=== PATIENT | female | born 1950 | race Caucasian/White ===

== ENCOUNTER 2020-09-26 01:41 | Emergency (ER) | payer OTHER ==
[~2020-09-26] VITALS: Ht 165 cm; Wt 100.0 kg
[~2020-09-26 01:41] MED LIST: HYDR1TAB PO; IMAT400T2 PO
[2020-09-26 01:45] VITALS: BP 135/95
[2020-09-26 02:46] LABS: ALBUMIN 3.9 GM/DL (3.2-4.5); BILIRUBIN,TOTAL 0.5 MG/DL (0.1-1.0); CALCIUM 8.8 MG/DL (8.5-10.1); CREATININE SERUM 1.6 MG/DL (0.60-1.30); POTASSIUM 4.6 MMOL/L (3.6-5.0); TOTAL PROTEIN 7.7 GM/DL (6.4-8.2)
[2020-09-26 03:01] LABS: BASOPHILS # (AUTO) 0.1 10^3/uL (0.0-0.1); BASOPHILS % (AUTO) 1 % (0-10); EOSINOPHILS # (AUTO) 0.2 10^3/uL (0.0-0.3); EOSINOPHILS % (AUTO) 3 % (0-10); HEMATOCRIT 36 % (35-52); HEMOGLOBIN 11.6 g/dL (11.5-16.0); LYMPHOCYTES # (AUTO) 2.3 10^3/uL (1.0-4.0); LYMPHOCYTES % (AUTO) 26 % (12-44); MEAN CORPUSCULAR HEMOGLOBIN 30 pg (25-34); MEAN CORPUSCULAR HGB CONC 33 g/dL (32-36); MEAN CORPUSCULAR VOLUME 93 fL (80-99); MEAN PLATELET VOLUME 9.9 fL (9.0-12.2); MONOCYTES # (AUTO) 0.8 10^3/uL (0.0-1.0); MONOCYTES % (AUTO) 9 % (0-12); NEUTROPHILS # (AUTO) 5.6 10^3/uL (1.8-7.8); NEUTROPHILS % (AUTO) 62 % (42-75); PLATELET COUNT 287 10^3/uL (130-400)
[2020-09-26 04:32] LABS: BILIRUBIN,URINE NEGATIVE (NEGATIVE); CLARITY,URINE SL CLOUDY; COLOR,URINE YELLOW; GLUCOSE, URINE (UA) NEGATIVE (NEGATIVE); KETONES,URINE NEGATIVE (NEGATIVE); LEUKOCYTE ESTERASE ,URINE TRACE (NEGATIVE); NITRITE,URINE NEGATIVE (NEGATIVE); PH,URINE 5.5 (5-9); PROTEIN,URINE NEGATIVE (NEGATIVE)
[2020-09-26 04:33] LABS: PROTHROMBIN TIME PATIENT 13.2 SEC (12.2-14.7)
[2020-09-26 04:40] LABS: BACTERIA,URINE TRACE /HPF
--- NOTE | 2020-09-26 05:38 | ED Neurological Problem ---
General Chief Complaint: Eye Problems Stated Complaint: LEG PAIN Nursing Triage Note: Pt arrival at ER via [facility] with complaint of vision changes, and pain to her left groin. Pt states that in august of this year she had a occipital stroke that left her with eye issues. PT states that she lost some of her periphreal vision due to the stroke. Pt states that just prior to that stroke in august she had that same feeling in her groin. She states that tonight about an hour ago both the pain in the groin, and some changes in the vision occurred so she called for an ambulance in case she was having another stroke. Nursing Sepsis Screen: No Definite Risk Source: patient Exam Limitations: no limitations History of Present Illness Date Seen by Provider: Sep 26, 2020 Time Seen by Provider: 01:50 Initial Comments This is 69-year-old woman presents to the emergency room via EMS with concerns about visual changes and left groin or upper thigh pain that started around midnight. Symptoms have since improved. She suffered an occipital lobe stroke in late August which affected her balance and her left lateral peripheral vision. She was treated at [facility] and underwent physical therapy and Occupational Therapy. She was discharged from the hospital yesterday. She describes her vision change as a spinning of objects in her vision that should be stationary. She denies dizziness associated with this. She is also co ncerned because she has a left groin pain that she associates with a prodrome to her stroke in August. She does not know what causes this pain. The pain has subsided. She reports her symptoms started about an hour after taking Lipitor, and she wonders if there is a correlation. She does not appear to have any new visual field cut deficits or other new focal neurologic deficits. Allergies and Home Medications Allergies Coded Allergies: Penicillins (Verified Allergy, Unknown, 09/26/20) Tetracyclines (Verified Allergy, Unknown, 09/26/20) cefaclor (Verified Allergy, Unknown, 09/26/20) dexamethasone (Verified Allergy, Unknown, 09/26/20) ibuprofen (Verified Allergy, Unknown, 09/26/20) tobramycin (Verified Allergy, Unknown, 09/26/20) Home Medications Hydrocodone Bit/Acetaminophen 1 Each Tablet, 1-2 EACH PO Q4HR PRN Prescribed by: CARMEN ROWELL on 05/28/121904 Imatinib Mesylate 400 Mg Tablet, 400 MG PO DAILY, (Reported) Patient Home Medication List Home Medication List Reviewed: Yes Review of Systems Review of Systems Constitutional: no symptoms reported Eyes: No Symptoms Reported Ears, Nose, Mouth, Throat: see HPI Respiratory: no symptoms reported Cardiovascular: no symptoms reported Gastrointestinal: no symptoms reported Genitourinary: no symptoms reported Musculoskeletal: no symptoms reported Skin: no symptoms reported Psychiatric/Neurological: See HPI Endocrine: No Symptoms Reported Hematologic/Lymphatic: No Symptoms Reported Past V[place]omi-Ywnpsc-Utptia Hx Past Med/Social Hx: Reviewed and Corrections made Patient Social History Recent Infectious Disease Expo: No Recent Hopitalizations: Yes Past Medical History Surgeries: Yes Nephrectomy Respiratory: No Cardiac: No Neurological: Yes Stroke (With residual left lateral visual field cut deficit and balance issues) : No Genitourinary: Yes 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 oz. 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) Crainal Nerves: normal hearing, normal speech, PERRL Coordination/Gait: normal finger to nose (Normal ovus-gr-acsa) Motor/Sensory: no motor deficit, no sensory deficit Skin: normal color, warm/dry Progress/Results/Core Measures Results/Orders Lab Results Laboratory Tests Test 09/26/20 02:18 09/26/20 02:55 09/26/20 03:55 09/26/20 04:27 Range/Units Sodium Level 138 135-145 MMOL/L Potassium Level 4.6 3.6-5.0 MMOL/L Chloride Level 103 98-107 MMOL/L Carbon Dioxide Level 21 21-32 MMOL/L Anion Gap 14 5-14 MMOL/L Blood Urea Nitrogen 24 H 7-18 MG/DL Creatinine 1.60 H 0.60-1.30 MG/DL Estimat Glomerular Filtration Rate 32 BUN/Creatinine Ratio 15 Glucose Level 94 70-105 MG/DL Calcium Level 8.8 8.5-10.1 MG/DL Corrected Calcium 8.9 8.5-10.1 MG/DL Total Bilirubin 0.5 0.1-1.0 MG/DL Aspartate Amino Transf (AST/SGOT) 28 5-34 U/L Alanine Aminotransferase (ALT/SGPT) 20 0-55 U/L Alkaline Phosphatase 147 H 40-136 U/L Total Protein 7.7 6.4-8.2 GM/DL Albumin 3.9 3.2-4.5 GM/DL White Blood Count 9.0 4.3-11.0 10^3/uL Red Blood Count 3.84 3.80-5.11 10^6/uL Hemoglobin 11.6 11.5-16.0 g/dL Hematocrit 36 35-52 % Mean Corpuscular Volume 93 80-99 fL Mean Corpuscular Hemoglobin 30 25-34 pg Mean Corpuscular Hemoglobin Concent 33 32-36 g/dL Red Cell Distribution Width 14.3 10.0-14.5 % Platelet Count 287 130-400 10^3/uL Mean Platelet Volume 9.9 9.0-12.2 fL Immature Granulocyte % (Auto) 0 % Neutrophils (%) (Auto) 62 42-75 % Lymphocytes (%) (Auto) 26 12-44 % Monocytes (%) (Auto) 9 0-12 % Eosinophils (%) (Auto) 3 0-10 % Basophils (%) (Auto) 1 0-10 % Neutrophils # (Auto) 5.6 1.8-7.8 10^3/uL Lymphocytes # (Auto) 2.3 1.0-4.0 10^3/uL Monocytes # (Auto) 0.8 0.0-1.0 10^3/uL Eosinophils # (Auto) 0.2 0.0-0.3 10^3/uL Basophils # (Auto) 0.1 0.0-0.1 10^3/uL Immature Granulocyte # (Auto) 0.0 0.0-0.1 10^3/uL Prothrombin Time 13.2 12.2-14.7 SEC INR Comment 1.0 0.8-1.4 Activated Partial Thromboplast Time 26 24-35 SEC Urine Color YELLOW Urine Clarity SL CLOUDY Urine pH 5.5 5-9 Urine Specific [place] 1.015 L 1.016-1.022 Urine Protein NEGATIVE NEGATIVE Urine Glucose (UA) NEGATIVE NEGATIVE Urine Ketones NEGATIVE NEGATIVE Urine Nitrite NEGATIVE NEGATIVE Urine Bilirubin NEGATIVE NEGATIVE Urine Urobilinogen 0.2 < = 1.0 MG/DL Urine Leukocyte Esterase TRACE H NEGATIVE Urine RBC (Auto) NEGATIVE NEGATIVE Urine RBC NONE /HPF Urine WBC 2-5 /HPF Urine Squamous Epithelial Cells 5-10 /HPF Urine Crystals NONE /LPF Urine Bacteria TRACE /HPF Urine Casts NONE /LPF Urine Mucus NEGATIVE /LPF Urine Culture Indicated NO My Orders Orders - LELA INGRAM MD Cbc With Automated Diff (09/26/20 02:03) Protime With Inr (09/26/20 02:03) Partial Thromboplastin Time (09/26/20 02:03) Comprehensive Metabolic Panel (09/26/20 02:03) Ua Culture If Indicated (09/26/20 02:03) Ekg Tracing (09/26/20 02:03) Accucheck Stat ONCE (09/26/20 02:03) Ed Iv/Invasive Line Start (09/26/20 02:03) Vital Signs Stroke Patient Q15M (09/26/20 02:03) Ct Head Wo-R/O Stroke (09/26/20 02:03) Intake & Output 06,14,22 (09/26/20 02:03) Monitor-Rhythm Ecg Trace Only (09/26/20 02:03) Dysphagia Screening Tool (09/26/20 02:03) Vital Signs/I&O 09/26/20 09/26/20 09/26/20 01:45 01:45 05:50 Temp 35.9 Pulse 81 81 108 Resp 18 18 20 B/P (MAP) 135/95 135/95 (108) 164/90 Pulse Ox 97 97 99 O2 Delivery Room Air Room Air Blood Pressure Mean: 108 Progress Progress Note : Progress Note By exam patient did not appear to have any notable new neurologic deficits. The spinning of objects in her vision has resolved. The groin pain has also resolved. CT of the head was unremarkable. Labs were also unremarkable. Creatinine is at baseline per her report. The visual disturbance she describes does not seem consistent with a stroke syndrome. She questions whether these symptoms and her groin pain could be related to Lipitor use. I suggested stopping Lipitor for a couple of days and following up with her primary care provider to discuss. Initial ECG Impression Date: Sep 26, 2020 Initial ECG Impression Time: 02:35 Initial ECG Rate: 75 Initial ECG Rhythm: Normal Sinus Initial ECG Intervals: Normal Comment Normal sinus rhythm with no ST elevation or depression. No abnormal intervals. LVH. Diagnostic Imaging Diagonstic Imaging: CT Plain Films/CT/US/NM/MRI: head Comments CT head [employer] report reviewed. Stroke findings consistent with her prior stroke history. No acute features appreciated. Departure Impression Primary Impression: Visual disturbance Additional Impression: History of stroke Disposition: HOME, SELF-CARE Condition: Stable Departure-Patient Inst. Decision time for Depature: 05:37 Referrals: NO,LOCAL PHYSICIAN (PCP/Family) Primary Care Physician Patient Instructions: Stroke Add. Discharge Instructions: Follow-up with your primary care provider soon as you are able. Discussed possible referral to neurology. Return to the emergency room if you have worsening symptoms. Call with questions or concerns. If you think Lipitor may be contributing to your symptoms, you may stop Lipitor for couple of days to determine how you feel off of it. Discuss an alternative with your doctor. All discharge instructions reviewed with patient and/or family. Voiced un derstanding. LELA INGRAM MD Sep 26, 2020 05:38
[2020-09-26 05:50] VITALS: BP 164/90
--- NOTE | 2020-09-26 06:41 | Diagnostic Imaging Report ---
PROCEDURE: CT head wo r/o stroke. TECHNIQUE: Multiple contiguous axial images were obtained through the brain without the use of intravenous contrast. Auto Exposure Controls were utilized during the CT exam to meet ALARA standards for radiation dose reduction. INDICATION: Neuro deficit, recent stroke. Leukemia and renal cancer. COMPARISON: None available. FINDINGS: No intracranial hyperdense hemorrhage. There is some loss of the fisher-white matter differentiation in the right posterior temporoparietal and occipital regions. There also appears to be some subcortical hypoattenuation in the right inferior parietal region. Probable old infarct in the left inferior cerebellar hemisphere. No midline shift. Basilar cisterns remain patent. No hyperdense MCA sign on either side. No skull fracture. Paranasal sinuses and mastoid air cells are clear. IMPRESSION: 1. No intracranial hemorrhage or features of acute large territorial infarct. 2. Probable subacute infarcts in the right parieto-occipital region. 3. Old lacunar infarct in the left inferior cerebellar hemisphere. 4. Findings are in agreement with the preliminary report. Dictated by: Dictated on workstation # [id number]
== END 2020-09-26 05:50 | disposition home or self-care (01) ==
LOC: EDUNIT# 01:41 → ER 01:43
DX: H53.9 Unspecified visual disturbance (principal); I10 Essential (primary) hypertension; Z86.73 Personal history of transient ischemic attack (TIA), and cerebral infarction without residual deficits; Z85.528 Personal history of other malignant neoplasm of kidney; Z88.0 Allergy status to penicillin; Z88.1 Allergy status to other antibiotic agents; Z88.6 Allergy status to analgesic agent; Z88.8 Allergy status to other drugs, medicaments and biological substances
CPT/HCPCS: 36415; 70450; 80053; 81000; 85025; 85610; 85730; 93005; 93041

== ENCOUNTER → 2020-10-30 | Outpatient (CLI) | payer OTHER ==
--- NOTE | 2020-10-30 16:25 | Diagnostic Imaging Report ---
PROCEDURE: US carotid duplex, bilateral. TECHNIQUE: Multiple real-time grayscale images were obtained over the carotid arteries in various projections, bilaterally. Additional spectral analysis and color Doppler duplex images were also obtained. INDICATION: Stroke. The bilateral common internal and external carotid arteries revealed normal velocities, normal waveforms and showed no findings of hemodynamically significant degrees of stenosis. The ICA to CCA percent ratios bilaterally are within normal limits. Vertebral flow bilaterally is in the normal antegrade direction. There is very mild degrees of calcified plaques at the bilateral carotid bulbs without significant stenosis. IMPRESSION: Mild calcified plaque did not form hemodynamically significant stenosis. Parameters based on the consensus panel Walls-Scale and Doppler ultrasound criteria published May 2003, Radiology, Volume 229. DOPPLER (peak systolic velocity M/S Right Left CCA 1.04 .96 ICA Proximal .82 .60 ICA Mid 1.0 1.25 ICA Distal 1.1 .68 RATIO 1.0 1.3 ECA 1.2 1.3 VERT .39 .45 Dictated by: Dictated on workstation # [id number]
== END ==
LOC: RAD 11:16
PROVIDERS: ATTEND Family Medicine
DX: I63.9 Cerebral infarction, unspecified (principal); I65.23 Occlusion and stenosis of bilateral carotid arteries
CPT/HCPCS: 93306; 93880

== ENCOUNTER 2020-12-18 10:45 | Outpatient (RCR) | payer OTHER ==
[2020-12-29] MEDS ORDERED: ASPI-999 PO (17:51)
[2020-12-29] MEDS ORDERED: CLOP75TA69 PO (17:51)
[2020-12-30] MEDS ORDERED: CLOP75TA28 PO (14:21)
[2020-12-30] MEDS ORDERED: ASPI-999 PO (14:21)
[2020-12-30] MEDS ORDERED: IMAT100T8 PO (14:21)
[2020-12-30] MEDS ORDERED: ERGO1250 PO (14:22)
== END 2021-01-08 14:49 | disposition home or self-care (01) ==
PROVIDERS: ATTEND Family Medicine
DX: I63.9 Cerebral infarction, unspecified (principal); M25.552 Pain in left hip; M62.81 Muscle weakness (generalized); R26.9 Unspecified abnormalities of gait and mobility

== ENCOUNTER 2020-12-26 14:40 | Outpatient (CLI) | payer OTHER ==
[~2020-12-26] VITALS: Ht 165 cm; Wt 100.0 kg
[2020-12-26] MEDS ORDERED: NS IV 1000 ML 1,000 ML IV SCH (15:00)
[2020-12-26 15:27] VITALS: BP 127/73
[2020-12-30] MEDS ORDERED: ERGO50006 PO (14:22)
== END 2020-12-26 17:00 ==
LOC: SDC 14:40
PROVIDERS: ATTEND Family Medicine
DX: E86.0 Dehydration (principal)
CPT/HCPCS: 96360

== ENCOUNTER 2020-12-29 08:22 | Inpatient (IN) | payer OTHER ==
[~2020-12-29] VITALS: Ht 162.6 cm; Wt 129.5 kg
[2020-12-29] MEDS ORDERED: LACTATED RINGERS 1,000 ML IV ONE ×2 (09:26→17:54)
[2020-12-29 09:33] LABS: BASOPHILS % (AUTO) 0 % (0-10); EOSINOPHILS % (AUTO) 0 % (0-10); MONOCYTES # (AUTO) 0.3 10^3/uL (0.0-1.0); MONOCYTES % (AUTO) 4 % (0-12); WHITE BLOOD COUNT 6.6 10^3/uL (4.3-11.0)
[2020-12-29 09:35] LABS: HEMATOCRIT 34 % (35-52); HEMOGLOBIN 12.6 g/dL (11.5-16.0); LYMPHOCYTES # (AUTO) 0.4 10^3/uL (1.0-4.0); LYMPHOCYTES % (AUTO) 6 % (12-44); MEAN CORPUSCULAR HEMOGLOBIN 30 pg (25-34); MEAN CORPUSCULAR HGB CONC 37 g/dL (32-36); MEAN CORPUSCULAR VOLUME 83 fL (80-99); MEAN PLATELET VOLUME 10.2 fL (9.0-12.2); NEUTROPHILS # (AUTO) 5.9 10^3/uL (1.8-7.8); NEUTROPHILS % (AUTO) 89 % (42-75); PLATELET COUNT 123 10^3/uL (130-400)
[2020-12-29 09:43] LABS: ALBUMIN 3.1 GM/DL (3.2-4.5)
[2020-12-29 09:45] LABS: CALCIUM 7.1 MG/DL (8.5-10.1)
[2020-12-29 09:46] LABS: TOTAL PROTEIN 5.7 GM/DL (6.4-8.2)
[2020-12-29 09:48] LABS: BILIRUBIN,TOTAL 0.5 MG/DL (0.1-1.0)
[2020-12-29 10:03] LABS: INR 1.1 (0.8-1.4); PROTHROMBIN TIME PATIENT 14.2 SEC (12.2-14.7)
--- NOTE | 2020-12-29 10:33 | Diagnostic Imaging Report ---
Clinical indication: Patient with sepsis and central line placement. Exam: Portable chest x-ray upright view. Comparisons: None. Findings: There is mild to moderate patchy infiltrate involving left midlung field, left lung base and right lung base. There is possible left pleural effusion. There is no pneumothorax. Pulmonary vasculature and cardiac silhouette is grossly unremarkable. Right IJ central line seen with tip in the distal superior vena cava. There are degenerative spurs involving the thoracic spine. IMPRESSION: 1: There are bilateral lung infiltrates with lung base affected the most (left side more than the right). 2: Possible small left pleural effusion. 3: There is right IJ central line with tip in the distal superior vena cava region. There is no pneumothorax. Dictated by: Dictated on workstation # [id number]
[2020-12-29 11:31] LABS: BILIRUBIN,URINE NEGATIVE (NEGATIVE); CLARITY,URINE CLEAR; COLOR,URINE YELLOW; GLUCOSE, URINE (UA) NEGATIVE (NEGATIVE); KETONES,URINE NEGATIVE (NEGATIVE); LEUKOCYTE ESTERASE ,URINE NEGATIVE (NEGATIVE); NITRITE,URINE NEGATIVE (NEGATIVE); PROTEIN,URINE 2+ (NEGATIVE)
[2020-12-29] MEDS ORDERED: REMDESIVIR INJ 200 MG in NS (IVPB) 210 ML IV ONE (11:45)
[2020-12-29] MEDS ORDERED: guaiFENesin/CODEINE (ROBITUSSIN AC) 10ML UDC PO PRN (11:45)
[2020-12-29] MEDS ORDERED: ONDANSETRON 4 MG/2 ML (SDV) Z0FRAN IV PRN (11:45)
[2020-12-29] MEDS ORDERED: NS IV 500 ML 500 ML IV SCH (11:45)
[2020-12-29] MEDS ORDERED: ENOXAPARIN 40 MG/0.4 ML (LOVENOX) SYR SC SCH (11:45)
[2020-12-29 11:47] LABS: BACTERIA,URINE NEGATIVE /HPF; GRANULAR CASTS,URINE 0-2 /LPF; RBC,URINE RARE /HPF; WBC,URINE 0-2 /HPF
--- NOTE | 2020-12-29 11:48 | ED General ---
General Chief Complaint: Respiratory Problems Stated Complaint: COVID PNA Nursing Triage Note: Pt to ED via EMS from [facility]. Pt uncertain of COVID exposure. EMS was called for SOB. EMS reports O2 sat of 84% room air. Pt arrived on 10L non-rebreather. Pt has hx of leukemia, general weakness. Pt c/o sore throat, cough and SOB. Nursing Sepsis Screen: No Definite Risk Source of Information: Patient Exam Limitations: No Limitations History of Present Illness Date Seen by Provider: Dec 29, 2020 Time Seen by Provider: 08:35 Initial Comments Here with report of markedly low oxygen level. Patient on 10 L via nonrebreather on arrival by EMS. Patient apparently lives at [facility]. She was concerned that she may have Covid. She has history of leukemia and thus did not get Covid vaccination due to concerns of reactivity with the vaccine and leukemia treatment. She is generally weak with cough, sore throat and shortness of breath. O2 sat upper 90s on 10 L via facemask. EMS unable to establish IV. Timing/Duration: 2-3 Days, Getting Worse Severity: Moderate, Severe Associated Systoms: No Chest Pain; Cough, Fever/Chills, Headaches; No Nausea/Vomiting; Shortness of Air, Weakness Allergies and Home Medications Allergies Coded Allergies: Penicillins (Verified Allergy, Unknown, 09/26/20) Tetracyclines (Verified Allergy, Unknown, 09/26/20) cefaclor (Verified Allergy, Unknown, 09/26/20) dexamethasone (Verified Allergy, Unknown, 09/26/20) ibuprofen (Verified Allergy, Unknown, 09/26/20) tobramycin (Verified Allergy, Unknown, 09/26/20) Home Medications Hydrocodone Bit/Acetaminophen 1 Each Tablet, 1-2 EACH PO Q4HR PRN Prescribed by: CARMEN ROWELL on 05/28/12 190 Imatinib Mesylate 400 Mg Tablet, 400 MG PO DAILY, (Reported) Patient Home Medication List Home Medication List Reviewed: Yes Review of Systems Review of Systems Constitutional: see HPI, chills, fever EENTM: see HPI Respiratory: see HPI Cardiovascular: No chest pain; edema Gastrointestinal: see HPI; No abdominal pain Genitourinary: dysuria; No pain Musculoskeletal: muscle pain, muscle weakness All Other Systems Reviewed Negative Unless Noted: Yes Past Kxsfaoe-Esiwyf-Rugqmc Hx Past Med/Social Hx: Reviewed Nursing Past Med/Soc Hx Patient Social History Alcohol Use: Denies Use 2nd Hand Smoke Exposure: No Recent Infectious Disease Expo: No Recent Hopitalizations: Yes Past Medical History Surgeries: Yes Nephrectomy Respiratory: No Cardiac: No Neurological: Yes Stroke Genitourinary: Yes Renal Failure Gastrointestinal: No Musculoskeletal: No Endocrine: No Cancer: Yes Leukemia, Kidney What Type of Treatment Did You: Chemotherapy Psychosocial: No Integumentary: No Family Medical History Reviewed Nursing Family Hx No Pertinent Family Hx Physical Exam-Suspected Sepsis Physical Exam Vital Signs Vital Signs - First Documented 12/29/20 12/29/20 08:22 09:35 Pulse 82 Resp 35 B/P (MAP) 134/105 (115) Pulse Ox 98 O2 Delivery Non Rebreather O2 Flow Rate 4.00 Capillary Refill : Less Than 3 Seconds Blood Pressure Mean: 115 Height, Weight, BMI Height: '" Weight: lbs. oz. kg; 39.00 BMI Method:Stated General Appearance: Chronically ill, Mild Distress HEENT: PERRL/EOMI, Pharyngeal Erythema Neck: Non Tender, Supple Respiratory: Crackles (Bilateral bases), Decreased Breath Sounds Cardiovascular: Regular Rate, Rhythm, No Murmur Gastrointestinal: Non Tender, Soft Back: Normal Inspection, No CVA Tenderness, No Vertebral Tenderness Extremity: Normal Range of Motion, Non Tender, Pedal Edema Neurologic/Psychiatric: Alert, Motor Weakness (Global), Other (Hard of hearing but oriented to self and place) Skin: warm/dry, pallor; No rash, No ulcerations Focused Exam Lactate Level 12/29/20 09:27: Lactic Acid Level 0.90 Lactic Acid Level Laboratory Tests Test 12/29/20 09:27 Lactic Acid Level 0.90 MMOL/L (0.50-2.00) Procedures/Interventions Lumen: triple Central Line Procedure: betadine prep, sterile drapes applied, sterile dressing applied Position: internal jugular (R) Anesthesia: Lidocaine Volume Anesthetic (ccs): 5 Complications: none Post Position: sutured, good blood return, position confirmed w/ CXR Placed under emergent condition and unable to get IV access. Discussed risk and benefits with the patient who consented. Placed via ultrasound guidance using Seldinger technique x1 stick without complications. The internal jugular vein was significantly collapsing with each breath. Stayed open better and Trendelenburg. Sutured in place and covered with central line dressing. Tolerated procedure well with no complications. Post chest x-ray shows line in good position without pneumothorax. Progress/Results/Core Measures Suspected Sepsis Recent Fever Within 48 Hours: No Infection Criteria Present: None New/Unexplained Altered Menta: No Sepsis Screen: No Definite Risk SIRS Temperature: Pulse: 82 Respiratory Rate: 35 Laboratory Tests 12/29/20 09:27: White Blood Count 6.6 Blood Pressure 134 /105 Mean: 115 12/29/20 09:27: Lactic Acid Level 0.90 Laboratory Tests 12/29/20 09:27: Creatinine 3.00H, Platelet Count 123L, Total Bilirubin 0.5 12/29/20 09:44: INR Comment 1.1 Results/Orders Lab Results Laboratory Tests Test 12/29/20 08:30 12/29/20 08:35 12/29/20 09:23 12/29/20 09:27 Range/Units SARS-CoV-2 RNA (RT-PCR) Detected H Not Detecte Influenza Type A (RT-PCR) Not Detected Not Detecte Influenza Type B (RT-PCR) Not Detected Not Detecte C-Reactive Protein High Sensitivity 3.05 H 0.00-0.50 MG/DL Procalcitonin 0.70 H <0.10 NG/ML White Blood Count 6.6 4.3-11.0 10^3/uL Red Blood Count 4.15 3.80-5.11 10^6/uL Hemoglobin 12.6 11.5-16.0 g/dL Hematocrit 34 L 35-52 % Mean Corpuscular Volume 83 80-99 fL Mean Corpuscular Hemoglobin 30 25-34 pg Mean Corpuscular Hemoglobin Concent 37 H 32-36 g/dL Red Cell Distribution Width 13.9 10.0-14.5 % Platelet Count 123 L 130-400 10^3/uL Mean Platelet Volume 10.2 9.0-12.2 fL Immature Granulocyte % (Auto) 1 % Neutrophils (%) (Auto) 89 H 42-75 % Lymphocytes (%) (Auto) 6 L 12-44 % Monocytes (%) (Auto) 4 0-12 % Eosinophils (%) (Auto) 0 0-10 % Basophils (%) (Auto) 0 0-10 % Neutrophils # (Auto) 5.9 1.8-7.8 10^3/uL Lymphocytes # (Auto) 0.4 L 1.0-4.0 10^3/uL Monocytes # (Auto) 0.3 0.0-1.0 10^3/uL Eosinophils # (Auto) 0.0 0.0-0.3 10^3/uL Basophils # (Auto) 0.0 0.0-0.1 10^3/uL Immature Granulocyte # (Auto) 0.1 0.0-0.1 10^3/uL Percent Immature Platelet Fraction 8.8 H 0.0-7.6 % Sodium Level 118 *L 135-145 MMOL/L Potassium Level 3.0 L 3.6-5.0 MMOL/L Chloride Level 87 L 98-107 MMOL/L Carbon Dioxide Level 17 L 21-32 MMOL/L Anion Gap 14 5-14 MMOL/L Blood Urea Nitrogen 42 H 7-18 MG/DL Creatinine 3.00 H 0.60-1.30 MG/DL Estimat Glomerular Filtration Rate 16 BUN/Creatinine Ratio 14 Glucose Level 119 H 70-105 MG/DL Lactic Acid Level 0.90 0.50-2.00 MMOL/L Calcium Level 7.1 L 8.5-10.1 MG/DL Corrected Calcium 7.8 L 8.5-10.1 MG/DL Total Bilirubin 0.5 0.1-1.0 MG/DL Aspartate Amino Transf (AST/SGOT) 360 H 5-34 U/L Alanine Aminotransferase (ALT/SGPT) 118 H 0-55 U/L Alkaline Phosphatase 79 40-136 U/L Total Protein 5.7 L 6.4-8.2 GM/DL Albumin 3.1 L 3.2-4.5 GM/DL Test 12/29/20 09:44 12/29/20 11:15 Range/Units Prothrombin Time 14.2 12.2-14.7 SEC INR Comment 1.1 0.8-1.4 Activated Partial Thromboplast Time 29 24-35 SEC My Orders Orders - TED HULL MD Influenza A And B By Pcr (12/29/20 08:46) Cbc With Automated Diff (12/29/20 08:49) Comprehensive Metabolic Panel (12/29/20 08:49) Blood Culture (12/29/20 08:49) Sputum Culture (12/29/20 08:49) Urinalysis (12/29/20 08:49) Urine Culture (12/29/20 08:49) Protime With Inr (12/29/20 08:49) Partial Thromboplastin Time (12/29/20 08:49) Chest 1 View, Ap/Pa Only (12/29/20 08:49) Ed Iv/Invasive Line Start (12/29/20 08:49) Ed Iv/Invasive Line Start (12/29/20 08:49) Vital Signs Adult Sepsis Patie Q15M (12/29/20 08:49) O2 (12/29/20 08:49) Remove Rings In Anticipation O (12/29/20 08:49) Lactic Acid Analyzer (12/29/20 08:49) Lactated Ringers (Lr 1000 Ml Iv Solution (12/29/20 09:26) Manual Differential (12/29/20 09:27) Hs C Reactive Protein (12/29/20 09:53) Procalcitonin (Pct) (12/29/20 09:53) Covid 19 Inhouse Test (12/29/20 08:30) Dexamethasone Injection (Decadron Inje (12/29/20 11:30) Medications Given in ED Current Medications Medications Dose Ordered Sig/Ricardo Route Start Time Stop Time Status Last Admin Dose Admin Lactated Ringer's 1,000 ml @ ud STK-MED ONCE IV 12/29/20 09:26 12/29/20 09:30 DC 12/29/20 09:34 999 MLS/HR Vital Signs/I&O 12/29/20 12/29/20 08:22 09:35 Pulse 82 Resp 35 B/P (MAP) 134/105 (115) Pulse Ox 98 95 O2 Delivery Non Rebreather Nasal Cannula O2 Flow Rate 4.00 Capillary Refill : Less Than 3 Seconds Blood Pressure Mean: 115 Progress Note : Progress Note Seen and evaluated on arrival by EMS. Placed on high flow O2. Sepsis protocol initiated as well as Covid screening including influenza. LR 1 L bolus ordered. We are unable to obtain IV access peripherally including with use of ultrasound so ultimately placed central line after discussion with the patient. She consented. Monitor patient. 1134: Patient is Covid positive. Shaw catheter placed by nursing and they did note that she has significant yeast vaginitis. I did discuss this with inpatient team, Dr. Stratton. Patient is remaining stable on high flow O2 with O2 sats in the upper 90s. We will try to titrate. Does have bilateral infiltrates consistent with Covid pneumonia. Decadron 6 mg IV ordered. Patient will go to the ICU and admitting physician will write orders. Patient claims allergy to Decadron which seems to be from tobramycin. We will attempt trial. 1156: Patient to ICU and has not had Decadron yet and they will talk with inpatient physician because patient is claiming allergy. She is now on nasal cannula. Diagnostic Imaging Diagonstic Imaging: Xray Plain Films/CT/US/NM/MRI: chest Comments [facility] [place] NAME: LOUIE LEONG [employer] REC#: [id number] PT STATUS: REG ER : 1950 PHYSICIAN: TED HULL MD ADMIT DATE: 12/29/20/ER Draft Date of Exam:12/29/20 CHEST 1 VIEW, AP/PA ONLY Clinical indication: Patient with sepsis and central line placement. Exam: Portable chest x-ray upright view. Comparisons: None. Findings: There is mild to moderate patchy infiltrate involving left midlung field, left lung base and right lung base. There is possible left pleural effusion. There is no pneumothorax. Pulmonary vasculature and cardiac silhouette is grossly unremarkable. Right IJ central line seen with tip in the distal superior vena cava. There are degenerative spurs involving the thoracic spine. IMPRESSION: 1: There are bilateral lung infiltrates with lung base affected the most (left side more than the right). 2: Possible small left pleural effusion. 3: There is right IJ central line with tip in the distal superior vena cava region. There is no pneumothorax. Dictated on workstation # [id number] Dict: 12/29/20 1019 Trans: 12/29/20 1033 CVB [id number] Interpreted by: YOVANNY HERCULES MD Electronically signed by: Reviewed: Reviewed by Me Departure Impression Primary Impression: Pneumonia due to COVID-19 virus Additional Impression: Hypoxia Disposition: ADMITTED INPATIENT Condition: Critical Admissions Decision to Admit Reason: Admit from ER (General) Decision to Admit/Date: Dec 29, 2020 Time/Decision to Admit Time: 11:34 Departure-Patient Inst. Referrals: SAMAN RAI MD (PCP/Family) Primary Care Physician TED HULL MD Dec 29, 2020 11:48
[2020-12-29] MEDS: guaiFENesin SYRUP 100 MG/5 ML 10 ML (ROBITUSSIN SF) PO SCH ×3 (12:12→21:36)
--- NOTE | 2020-12-29 12:34 | Tele-ICU Progress Note ---
Subjective Date Seen by a Provider: Dec 29, 2020 Time Seen by a Provider: 12:29 Subjective/Events-last exam ++ 69 y/o f with hx of leukemia ho did not reive Covid vaccine presents with hypoxemia and now COVID positive. Started on decadron. Plan ia to give remdisivir and convalsecent plasma D dimer pending PLAN: HFNC for now DVT prophylaxis Review of Systems General: Fatigue, Malaise Pulmonary: Dyspnea Neurological: Weakness Sepsis Event Evaluation Height, Weight, BMI Height: '" Weight: lbs. oz. kg; 41.18 BMI Method:Stated Focused Exam Lactate Level 12/29/20 09:27: Lactic Acid Level 0.90 Lactic Acid Level Laboratory Tests Test 12/29/20 09:27 Lactic Acid Level 0.90 MMOL/L (0.50-2.00) Exam Exam Patient acknowledged, consented, and participated in this virtual visit which was conducted using real time audio/video Vital Signs Date Time Temp Pulse Resp B/P (MAP) Pulse Ox O2 Delivery O2 Flow Rate FiO2 12/29/20 09:35 95 Nasal Cannula 4.00 12/29/20 08:22 82 35 134/105 (115) 98 Non Rebreather Height & Weight Height: '" Weight: lbs. oz. kg; 41.18 BMI Method:Stated General Appearance: Chronically ill, Mild Distress HEENT: PERRL/EOMI, Pharyngeal Erythema Neck: Non Tender, Supple Respiratory: Crackles (Bilateral bases), Decreased Breath Sounds Cardiovascular: Regular Rate, Rhythm, No Murmur Capillary Refill: Less Than 3 Seconds Extremity: Normal Range of Motion, Non Tender, Pedal Edema Neurologic/Psychiatric: Alert, Motor Weakness (Global), Other (Hard of hearing but oriented to self and place) Results Lab Laboratory Tests 12/29/20 09:27 Assessment/Plan Assessment/Plan COVID PNA with hypoxemia and underlying leukemia Decadron, remdisivir, convalscent plasma ANANYA MAURO MD Dec 29, 2020 12:34
--- NOTE | 2020-12-29 14:22 | History & Physical-Hospitalist ---
History of Present Illness HPI/Chief Complaint Pt is a 69yoCF with a PMH of kidney cancer, leukemia, CKD, who presented via EMS due to hypoxia. She has not been feeling well for a few days, roughly 8days, and was concerned she had COVID. She was satting 84% when EMS arrived and placed her on a non rebreather. Sats improved by her arrival here and she was placed on 10lpm face mask. They were unable to get IV access so ER had to place a central line. She was found to have acute renal failure as well with a creatinine of 3. She was admitted for further care. She reports she has been having some diarrhea as well but can not quantify how much or how often or when it last was. She has not been vaccinated for COVID. Source: patient Date Seen 12/29/20 Time Seen by a Provider: 13:44 Attending Physician Brinda Stratton MD PCP Lis Swartz MD Referring Physician Date of Admission Dec 29, 2020 at 11:31 Home Medications & Allergies Home Medications Reviewed patient Home Medication Reconciliation performed by pharmacy medication reconciliations central supply technician and/or nursing. Patients Allergies have been reviewed. Allergies Allergies Coded Allergies Penicillins (Verified Allergy, Unknown, 09/26/20) Tetracyclines (Verified Allergy, Unknown, 09/26/20) cefaclor (Verified Allergy, Unknown, 09/26/20) dexamethasone (Verified Allergy, Unknown, 09/26/20) ibuprofen (Verified Allergy, Unknown, 09/26/20) tobramycin (Verified Allergy, Unknown, 09/26/20) Past Amriynk-Eseujj-Molqvs Hx Current Status status: No Advance Directives: No Communicates: Verbally Primary Language: Palauan Preferred Spoken Language: Palauan Is interpretation needed?: No Implanted or Applied Medical D: None Past Medical History Surgeries: Nephrectomy Stroke Renal Failure Leukemia, Kidney What Type of Treatment Did You: Chemotherapy Family Medical History Reviewed Nursing Family Hx No Pertinent Family Hx Review of Systems Constitutional: No chills, No fever; malaise EENTM: no symptoms reported Respiratory: cough, short of breath Cardiovascular: No chest pain Gastrointestinal: diarrhea, loss of appetite; No nausea, No vomiting Genitourinary: no symptoms reported Musculoskeletal: no symptoms reported Skin: no symptoms reported Psychiatric/Neurological: No Symptoms Reported Physical Exam Physical Exam Vital Signs Vital Signs - First Documented 12/29/20 12/29/20 08:22 09:35 Pulse 82 Resp 35 B/P (MAP) 134/105 (115) Pulse Ox 98 O2 Delivery Non Rebreather O2 Flow Rate 4.00 Capillary Refill : Less Than 3 Seconds Height, Weight, BMI Height: '" Weight: lbs. oz. kg; 41.18 BMI Method:Stated General Appearance: No Apparent Distress, Chronically ill, Obese HEENT: PERRL/EOMI; No Scleral Icterus (L), No Scleral Icterus (R); Other (dry mucous membranes) Neck: Normal Inspection, Supple Respiratory: No Accessory Muscle Use, Decreased Breath Sounds Cardiovascular: Regular Rate, Rhythm, No Murmur Gastrointestinal: Normal Bowel Sounds, Non Tender, Soft Extremity: No Calf Tenderness, No Pedal Edema Neurologic/Psychiatric: Alert, Oriented x3 (slowed speech), Normal Mood/Affect Skin: Normal Color, Warm/Dry Results Results/Procedures Labs Laboratory Tests 12/29/20 09:27 Patient resulted labs reviewed. Imaging: Reviewed Imaging Report Imaging [facility] [place] NAME: LOUIE LEONG [facility] REC#: [id number] PT STATUS: REG ER : 1950 PHYSICIAN: TED UHLL MD ADMIT DATE: 12/29/20/ER Draft Date of Exam:12/29/20 CHEST 1 VIEW, AP/PA ONLY Clinical indication: Patient with sepsis and central line placement. Exam: Portable chest x-ray upright view. Comparisons: None. Findings: There is mild to moderate patchy infiltrate involving left midlung field, left lung base and right lung base. There is possible left pleural effusion. There is no pneumothorax. Pulmonary vasculature and cardiac silhouette is grossly unremarkable. Right IJ central line seen with tip in the distal superior vena cava. There are degenerative spurs involving the thoracic spine. IMPRESSION: 1: There are bilateral lung infiltrates with lung base affected the most (left side more than the right). 2: Possible small left pleural effusion. 3: There is right IJ central line with tip in the distal superior vena cava region. There is no pneumothorax. Dictated on workstation # [id number] Dict: 12/29/20 1019 Trans: 12/29/20 1033 CVB [id number] Interpreted by: YOVANNY HERCULES MD Electronically signed by: Assessment/Plan Admission Diagnosis Acute hypoxic respiratory failure due to COVID19 Admission Status: Inpatient Order (span 2 midnights) Reason for Inpatient Admission: see below Assessment and Plan Acute hypoxic respiratory failure due to COVID19 On day 8 of symptoms cannot do remdesivir due to renal function- discussed with Dr Swartz who will see tomorrow and follow up Does agree to convalescent plasma, ordered Does now consent to Decadron trial given the benefit of improved mortality Wean oxygen at able on 5lpm currently, down from NRB on arrival D dimer pending Hyponatremia na 118 today, was 138 3 months ago Appears hypovolemic on exam Discussed with her PCP and appears to be at her baseline Continue IVF Check BMP now Acute on chronic kidney disease Creatinine at baseline is aroudnd1.6 Currently 3.00 Continue IVF and trend 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
[2020-12-29 15:47] VITALS: BP 117/56
[2020-12-29 16:31] LABS: BAND NEUTROPHILS 7 %; BURR CELLS MODERATE; LYMPHOCYTES % (MANUAL) 3 %; MONOCYTES % (MANUAL) 5 %; NEUTROPHILS % (MANUAL) 85 %; PLATELET ESTIMATE DECREASED
[2020-12-29 16:56] LABS: POTASSIUM 3.3 MMOL/L (3.6-5.0)
[2020-12-29 16:57] LABS: CALCIUM 6.9 MG/DL (8.5-10.1)
[2020-12-29 17:01] LABS: CREATININE SERUM 2.93 MG/DL (0.60-1.30)
[2020-12-29] MEDS ORDERED: POTASSIUM CL 10MEQ/50ML IVPB 100 ML IV ONE (17:32)
[2020-12-29] MEDS ORDERED: ASPI-999 PO (17:51)
[2020-12-29] MEDS ORDERED: CLOP75TA69 PO (17:51)
[2020-12-29] MEDS: LACTATED RINGERS 1,000 ML IV SCH (18:07)
[2020-12-29] MEDS: POTASSIUM CL 10MEQ/50ML IVPB 50 ML IV SCH (18:07)
[2020-12-29] MEDS: RT-ALBUTEROL INHALER HFA (VENTOLIN HFA) 18 GM IH SCH ×2 (18:21→22:24)
[2020-12-30] MEDS: guaiFENesin SYRUP 100 MG/5 ML 10 ML (ROBITUSSIN SF) PO SCH ×6 (01:29→20:14)
[2020-12-30] MEDS: RT-ALBUTEROL INHALER HFA (VENTOLIN HFA) 18 GM IH SCH ×6 (02:46→22:20)
[2020-12-30] MEDS: LACTATED RINGERS 1,000 ML IV SCH ×3 (03:35→21:36)
[2020-12-30 04:06] LABS: BASOPHILS % (AUTO) 0 % (0-10); EOSINOPHILS % (AUTO) 0 % (0-10); HEMATOCRIT 32 % (35-52); HEMOGLOBIN 11.6 g/dL (11.5-16.0); LYMPHOCYTES # (AUTO) 0.6 10^3/uL (1.0-4.0); LYMPHOCYTES % (AUTO) 8 % (12-44); MEAN CORPUSCULAR HEMOGLOBIN 30 pg (25-34); MEAN CORPUSCULAR HGB CONC 36 g/dL (32-36); MEAN CORPUSCULAR VOLUME 84 fL (80-99); MEAN PLATELET VOLUME 10.4 fL (9.0-12.2); MONOCYTES # (AUTO) 0.3 10^3/uL (0.0-1.0); MONOCYTES % (AUTO) 4 % (0-12); NEUTROPHILS # (AUTO) 6.1 10^3/uL (1.8-7.8); NEUTROPHILS % (AUTO) 87 % (42-75)
[2020-12-30 04:08] LABS: PLATELET COUNT 139 10^3/uL (130-400)
[2020-12-30 04:20] LABS: ALBUMIN 2.7 GM/DL (3.2-4.5); POTASSIUM 3.6 MMOL/L (3.6-5.0)
[2020-12-30 04:22] LABS: CALCIUM 7.1 MG/DL (8.5-10.1)
[2020-12-30 04:23] LABS: TOTAL PROTEIN 5.1 GM/DL (6.4-8.2)
[2020-12-30 04:25] LABS: BILIRUBIN,TOTAL 0.4 MG/DL (0.1-1.0)
[2020-12-30 04:26] LABS: CREATININE SERUM 2.93 MG/DL (0.60-1.30); PHOSPHORUS 3.7 MG/DL (2.3-4.7)
[2020-12-30 04:29] LABS: ABG BASE EXCESS -4.8 MMOL/L (-2.5-2.5); ABG OXYGEN SATURATION 75 % (94-100); ABG PCO2 36 MMHG (35-45); ABG PH 7.36 (7.37-7.43); ABG PO2 48 MMHG (79-93); ABG TCO2 20.8 MMOL/L (21.0-31.0); VENTILATOR NO
[2020-12-30 04:30] LABS: PATIENT TEMP 36.8
[2020-12-30 04:31] LABS: MAGNESIUM 1.9 MG/DL (1.6-2.4)
[2020-12-30] MEDS: POTASSIUM CL 10MEQ/50ML IVPB 50 ML IV SCH (05:44)
[2020-12-30] MEDS: MAGNESIUM 1 GM/100 ML IVPB 100 ML IV SCH (05:44)
[2020-12-30] MEDS: KCL 20 MEQ TAB (K-DUR) PO SCH (05:44)
--- NOTE | 2020-12-30 08:22 | Diagnostic Imaging Report ---
Indication: COVID 19 positive and shortness of air. Time of exam: 3:51 AM Correlation is made with prior chest from one day earlier. Right IJ line has tip overlying SVC. Heart size is stable. There are patchy infiltrates left mid and lower lung field. There may be minimal infiltrate right base as well. Upper lung [place] are clear. There is no effusion or pneumothorax. Impression: Continued patchy bilateral pulmonary infiltrates consistent with pneumonia. Dictated by: Dictated on workstation # [id number]
--- NOTE | 2020-12-30 08:41 | Progress Note ---
Subjective Subjective Date Seen by Provider: Dec 30, 2020 Time Seen by Provider: 08:40 LOUIE IS A 70 Y/O FEMALE WHO IS A NEW PATIENT TO MY PRACTICE OF A FEW MONTHS AGO. SHE HAD BEEN HOSPITALIZED WITH A STROKE RECENTLY AND CHOSE TO ESTABLISH IN MY PRACTICE. SHE HAS HX OF CML, RENAL CARCINOMA STATUS POST NEPHRECTOMY SHE REPORTS THAT SHE IS "NOT BREATHING BAD" THIS MORNING AND FEELING BETTER. Review of Systems General: Fatigue, Malaise Pulmonary: Dyspnea Neurological: Weakness All Other Systems Reviewed All Other Systems Reviewed: Yes Objective Exam Vital Signs Vital Signs - First Documented 12/29/20 12/29/20 12/29/20 08:22 09:35 12:30 Temp 36.8 Pulse 82 Resp 35 B/P (MAP) 134/105 (115) Pulse Ox 98 O2 Delivery Non Rebreather O2 Flow Rate 4.00 Capillary Refill : Less Than 3 Seconds General Appearance: No Apparent Distress, Chronically ill, Obese HEENT: PERRL/EOMI; No Scleral Icterus (L), No Scleral Icterus (R); Other (dry mucous membranes) Neck: Normal Inspection, Supple Respiratory: No Accessory Muscle Use, Decreased Breath Sounds Cardiovascular: Regular Rate, Rhythm, No Murmur Gastrointestinal: Normal Bowel Sounds, Non Tender, Soft Back: Normal Inspection, No CVA Tenderness, No Vertebral Tenderness Extremity: No Calf Tenderness, No Pedal Edema Neurologic/Psychiatric: Alert, Oriented x3 (slowed speech), Normal Mood/Affect Skin: Normal Color, Warm/Dry Results Lab Laboratory Tests 12/29/20 09:23: C-Reactive Protein High Sensitivity 3.05H, Procalcitonin 0.70H 12/29/20 09:27: White Blood Count 6.6, Red Blood Count 4.15, Hemoglobin 12.6, Hematocrit 34L, Mean Corpuscular Volume 83, Mean Corpuscular Hemoglobin 30, Mean Corpuscular Hemoglobin Concent 37H, Red Cell Distribution Width 13.9, Platelet Count 123L, Mean Platelet Volume 10.2, Immature Granulocyte % (Auto) 1, Neutrophils (%) (Auto) 89H, Lymphocytes (%) (Auto) 6L, Monocytes (%) (Auto) 4, Eosinophils (%) (Auto) 0, Basophils (%) (Auto) 0, Neutrophils # (Auto) 5.9, Lymphocytes # (Auto) 0.4L, Monocytes # (Auto) 0.3, Eosinophils # (Auto) 0.0, Basophils # (Auto) 0.0, Immature Granulocyte # (Auto) 0.1, Neutrophils % (Manual) 85, Lymphocytes % (Man ual) 3, Monocytes % (Manual) 5, Band Neutrophils 7, Platelet Estimate DECREASED, Percent Immature Platelet Fraction 8.8H, Kamar Cells MODERATE, Sodium Level 118*L , Potassium Level 3.0L, Chloride Level 87L, Carbon Dioxide Level 17L, Anion Gap 14, Blood Urea Nitrogen 42H, Creatinine 3.00H, Estimat Glomerular Filtration Rate 16, BUN/Creatinine Ratio 14, Glucose Level 119H, Lactic Acid Level 0.90, Calcium Level 7.1L, Corrected Calcium 7.8L, Total Bilirubin 0.5, Aspartate Amino Transf (AST/SGOT) 360H, Alanine Aminotransferase (ALT/SGPT) 118H, Alkaline Phosphatase 79, Total Protein 5.7L, Albumin 3.1L 12/29/20 09:44: Prothrombin Time 14.2, INR Comment 1.1, Activated Partial Thromboplast Time 29 12/29/20 11:15: Urine Color YELLOW, Urine Clarity CLEAR, Urine pH 6.0, Urine Specific Pryor 1.020, Urine Protein 2+H, Urine Glucose (UA) NEGATIVE, Urine Ketones NEGATIVE, Urine Nitrite NEGATIVE, Urine Bilirubin NEGATIVE, Urine Urobilinogen 0.2, Urine Leukocyte Esterase NEGATIVE, Urine RBC (Auto) 3+H, Urine RBC RARE, Urine WBC 0- 2, Urine Crystals NONE, Urine Bacteria NEGATIVE, Urine Casts PRESENT, Urine Granular Casts 0-2H, Urine Mucus NEGATIVE, Urine Culture Indicated NO 12/29/20 14:20: D-Dimer 3.85H 12/29/20 16:40: Sodium Level 120*L, Potassium Level 3.3L, Chloride Level 89L, Carbon Dioxide Level 20L, Anion Gap 11, Blood Urea Nitrogen 42H, Creatinine 2.93H, Estimat Glomerular Filtration Rate 16, BUN/Creatinine Ratio 14, Glucose Level 114H, Calcium Level 6.9L 12/30/20 03:45: Blood Gas Puncture Site UNK, Blood Gas Patient Temperature 36.8, Arterial Blood pH 7.36L, Arterial Blood Partial Pressure CO2 36, Arterial Blood Partial Pressure O2 48L, Arterial Blood HCO3 20L, Arterial Blood Total CO2 20.8L, Arterial Blood Oxygen Saturation 75L, Arterial Blood Base Excess -4.8L, Nathan Test UNK, Blood Gas Ventilator Setting NO, Blood Gas Inspired Oxygen UNK 12/30/20 03:50: Sodium Level 122*L, Potassium Level 3.6, Chloride Level 91L, Carbon Dioxide Level 18L, Anion Gap 13, Blood Urea Nitrogen 42H, Creatinine 2.93H, Estimat Glomerular Filtration Rate 16, BUN/Creatinine Ratio 14, Glucose Level 121H, Calcium Level 7.1L, White Blood Count 7.0, Red Blood Count 3.85, Hemoglobin 11.6, Hematocrit 32L, Mean Corpuscular Volume 84, Mean Corpuscular Hemoglobin 30, Mean Corpuscular Hemoglobin Concent 36, Red Cell Distribution Width 14.4, Platelet Count 139, Mean Platelet Volume 10.4, Immature Granulocyte % (Auto) 1, Neutrophils (%) (Auto) 87H, Lymphocytes (%) (Auto) 8L, Monocytes (%) (Auto) 4, Eosinophils (%) (Auto) 0, Basophils (%) (Auto) 0, Neutrophils # (Auto) 6.1, Lymphocytes # (Auto) 0.6L, Monocytes # (Auto) 0.3, Eosinophils # (Auto) 0.0, Basophils # (Auto) 0.0, Immature Granulocyte # (Auto) 0.1, Percent Immature Platelet Fraction 7.7H, Corrected Calcium 8.1L, Phosphorus Level 3.7, Magnesium Level 1.9, Total Bilirubin 0.4, Aspartate Amino Transf (AST/SGOT) 253H, Alanine Aminotransferase (ALT/SGPT) 100H, Alkaline Phosphatase 73, Total Protein 5.1L, Albumin 2.7L Assessment/Plan Assessment/Plan Admission Dx ACUTE HYPOXIC RESPIRATORY FAILURE COVID 19 PULMONARY INFECTION HX OF RENAL CELL CARCINOMA WITH NEPHRECTOMY HYPONATREMIA ACUTE ON CHRONIC RENAL FAILURE (STAGE 4) CHRONIC MYELOGENOUS LEUKEMIA ACUTELY ELEVATED LIVER ENZYMES DUE TO SHOCK MORBID OBESITY Assessment and Plan ACUTE HYPOXIC RESPIRATORY FAILURE COVID 19 PULMONARY INFECTION HX OF RENAL CELL CARCINOMA WITH NEPHRECTOMY HYPONATREMIA ACUTE ON CHRONIC RENAL FAILURE (STAGE 4) CHRONIC MYELOGENOUS LEUKEMIA ACUTELY ELEVATED LIVER ENZYMES DUE TO SHOCK MORBID OBESITY ACUTE HYPOXIC RESPIRATORY FAILURE DUE TO COVID 19 PULMONARY INFECTION WITH PNEUMONIA - PT ON DECADRON, RECEIVED CONVALESCENT PLASMA - CANNOT BE ON REMDESIVIR DUE TO HER LIVER FUNCTION AND RENAL FUNCTION. - E-ICU ON CONSULT FOR THIS PATIENT WITH PULMONARY CRITICAL CARE PHYSICIANS ROUNDING ON THE PATIENT VIRTUALLY. HX OF RENAL CELL CARCINOMA WITH NEPHRECTOMY AND ACUTE ON CHRONIC RENAL FAILURE (STAGE 4) - SUPPORTIVE CARE ONLY AT THIS TIME, RENAL ADJUSTMENT OF MEDICATIONS, IV FLUIDS. HYPONATREMIA - REPLENISHED WITH IV FLUIDS. - MONITOR LABS, REPLACE NEEDED. CHRONIC MYELOGENOUS LEUKEMIA - HOLDING GLEEVAC AT THIS TIME. ACUTELY ELEVATED LIVER ENZYMES DUE TO SHOCK AND COVID INFECTION - FLUIDS, SUPPORTIVE CARE, MONITOR LABS CLOSELY. - CANNOT GIVE REMDESIVIR DUE TO LIVER FAILURE MORBID OBESITY - WILL NEED TO BE ASSISTED WITH MOVEMENTS/PRONING, ETC. DVT PROPHYLAXIS WITH LOVENOX PT IS VERY HIGH RISK, I HAVE DISCUSSED HER CODE STATUS WITH HER AND ADVISED HER THAT I THINK THIS WILL TURN INTO A SITUATION WHERE SHE ENDS UP INTUBATED. SHE VOCALIZED UNDERSTANDING AND WISHED TO BE FULL CODE STATUS. I REITERATED TO LOUIE THAT SHE IS AT EXTREMELY HIGH RISK OF DYING WHILE IN THE HOSPITAL AND THAT WE WILL DO EVERYTHING WE CAN MEDICALLY TO HELP HER IMPROVE BUT WITH HER CML, RENAL FAILURE, AND OTHER COMORBID CONDITIONS SHE IS IN THE VERY HIGH RISK CATEGORY FOR POOR OUTCOME. Hyponatremia na 118 today, was 138 3 months ago Appears hypovolemic on exam Discussed with her PCP and appears to be at her baseline Continue IVF Check BMP now Acute on chronic kidney disease Creatinine at baseline is aroudnd1.6 Currently 3.00 Continue IVF and trend CML Is on Gleevac, brought it with her Follows with oncology, not sure where Obesity Clinically significant, no acute needs DVT ppx: Lovenox NAME: LOUIE LEONG MED REC#: [id number] PT STATUS: ADM IN : 1950 PHYSICIAN: BRINDA PADILLA MD ADMIT DATE: 12/29/20/ICU Draft Date of Exam:12/30/20 CHEST 1 VIEW, AP/PA ONLY Indication: COVID 19 positive and shortness of air. Time of exam: 3:51 AM Correlation is made with prior chest from one day earlier. Right IJ line has tip overlying SVC. Heart size is stable. There are patchy infiltrates left mid and lower lung field. There may be minimal infiltrate right base as well. Upper lung [place] are clear. There is no effusion or pneumothorax. Impression: Continued patchy bilateral pulmonary infiltrates consistent with pneumonia. Dictated on workstation # [id number] Dict: 12/30/2015 Trans: 12/30/20 0822 [facility] [id number] Interpreted by: DAMIR MARTINEZ MD Electronically signed by: Problems: (1) Acute respiratory failure (2) COVID-19 SAMAN RAI MD Dec 30, 2020 08:41
--- NOTE | 2020-12-30 09:08 | Pulmonary Progress Note ---
Subjective Date Seen by a Provider: Dec 30, 2020 Time Seen by a Provider: 09:28 Subjective/Events-last exam admitte with COVID PNA on remdesivir and decadraon, d dimer 3, on once a day Lovenox CXR shows bilateral infiltrates on vapotherm 40 lpm FiO2 100%, spont RR in teens Cr is 3 may have to stop remdesivir-RN will hold chart says allergic to PCN Has central line, not sure for need, probably for poor venous access Has Shaw catheter, RN feels needed due to drop in SpO2 when gets out of bed Sepsis Event Evaluation Height, Weight, BMI Height: '" Weight: lbs. oz. kg; 41.18 BMI Method:Stated Focused Exam Lactate Level 12/29/20 09:27: Lactic Acid Level 0.90 Exam Exam Patient acknowledged, consented, and participated in this virtual visit which was conducted using real time audio/video Vital Signs Date Time Temp Pulse Resp B/P (MAP) Pulse Ox O2 Delivery O2 Flow Rate FiO2 12/30/20 08:37 91 Vapotherm 40.00 100 12/30/20 08:00 90 12 126/87 (100) 87 High Flow N/C 10.00 12/30/20 07:35 36.8 12/30/20 07:00 77 14 109/95 (100) 91 High Flow N/C 8.00 12/30/20 06:58 92 Nasal Cannula 7.00 12/30/20 06:30 75 12/30/20 06:00 71 21 141/71 (94) 90 High Flow N/C 8.00 12/30/20 05:00 75 19 142/72 (93) 91 High Flow N/C 8.00 12/30/20 04:00 Nasal Cannula 8.00 12/30/20 04:00 75 29 103/59 (85) 91 High Flow N/C 8.00 12/30/20 04:00 36.8 12/30/20 03:00 70 28 112/58 (75) 92 High Flow N/C 8.00 12/30/20 02:46 94 Nasal Cannula 7.00 12/30/20 02:00 66 22 116/56 (75) 95 High Flow N/C 8.00 12/30/20 01:00 65 24 108/58 (75) 95 High Flow N/C 8.00 12/30/20 01:00 65 12/30/20 00:00 36.8 12/30/20 00:00 Nasal Cannula 8.00 12/30/20 00:00 35 25 122/63 (72) 96 High Flow N/C 8.00 12/29/20 23:00 84 22 132/74 (95) 92 High Flow N/C 8.00 12/29/20 22:00 74 31 127/68 (91) 95 High Flow N/C 8.00 12/29/20 21:00 84 28 133/63 (92) 90 High Flow N/C 8.00 12/29/20 20:00 78 26 129/63 (89) 94 High Flow N/C 8.00 12/29/20 20:00 Nasal Cannula 8.00 12/29/20 19:00 85 12/29/20 19:00 85 27 137/64 (91) 92 High Flow N/C 8.00 12/29/20 18:34 88 High Flow N/C 8.00 12/29/20 18:21 91 Nasal Cannula 8.00 12/29/20 18:00 80 17 135/66 (89) 91 Nasal Cannula 5.00 12/29/20 17:00 76 25 129/73 (91) 96 Nasal Cannula 5.00 12/29/20 16:28 37.0 12/29/20 16:00 72 28 131/62 (85) 95 Nasal Cannula 5.00 12/29/20 16:00 37.0 12/29/20 16:00 Nasal Cannula 5.00 12/29/20 15:47 73 95 12/29/20 15:00 73 26 117/56 (76) 95 Nasal Cannula 5.00 12/29/20 14:00 83 22 149/67 (94) 91 Nasal Cannula 5.00 12/29/20 13:00 82 29 102/65 (77) 94 Nasal Cannula 5.00 12/29/20 12:36 82 12/29/20 12:30 36.8 12/29/20 12:30 Nasal Cannula 5.00 12/29/20 12:15 80 21 132/70 (90) 92 Nasal Cannula 5.00 12/29/20 09:35 95 Nasal Cannula 4.00 I & O 12/30/20 07:00 Intake Total 2870 ml Output Total 1525 ml Balance 1345 ml Height & Weight Height: '" Weight: lbs. oz. kg; 41.18 BMI Method:Stated General Appearance: No Apparent Distress, Chronically ill, Obese HEENT: PERRL/EOMI; No Scleral Icterus (L), No Scleral Icterus (R); Other (dry mucous membranes) Neck: Normal Inspection, Supple Respiratory: No Accessory Muscle Use, Decreased Breath Sounds, Rhonci Cardiovascular: Regular Rate, Rhythm, No Murmur Capillary Refill: Less Than 3 Seconds Gastrointestinal: normal bowel sounds, non tender Extremity: No Calf Tenderness, No Pedal Edema, Pedal Edema Neurologic/Psychiatric: Alert, Oriented x3 (slowed speech), Normal Mood/Affect Skin: Normal Color, Warm/Dry Results Lab Laboratory Tests 12/29/20 09:27 12/29/20 16:40 12/30/20 03:50 Assessment/Plan Assessment/Plan COVID PNA, continue decadron, would stop remdesivir also with Cr 3 would change to Heparin monitor oxygenation, keep central line and Shaw for now ANANYA ALMAZAN MD Dec 30, 2020 09:08
[2020-12-30] MEDS ORDERED: REMDESIVIR INJ 100 MG in NS (IVPB) 230 ML IV SCH (11:45)
[2020-12-30] MEDS: MICONAZOLE 2% POWDER (DESENEX AF) 90 GM TOP SCH ×2 (12:35→20:36)
[2020-12-30] MEDS ORDERED: CLOP75TA28 PO (14:21)
[2020-12-30] MEDS ORDERED: IMAT100T8 PO (14:21)
[2020-12-30] MEDS ORDERED: ASPI-999 PO (14:21)
[2020-12-30] MEDS ORDERED: ERGO1250 PO (14:22)
[2020-12-31] MEDS: guaiFENesin SYRUP 100 MG/5 ML 10 ML (ROBITUSSIN SF) PO SCH ×7 (01:24→23:39)
[2020-12-31] MEDS: RT-ALBUTEROL INHALER HFA (VENTOLIN HFA) 18 GM IH SCH ×6 (02:45→22:05)
[2020-12-31 03:54] LABS: BASOPHILS % (AUTO) 0 % (0-10); EOSINOPHILS % (AUTO) 0 % (0-10); HEMATOCRIT 33 % (35-52); HEMOGLOBIN 11.9 g/dL (11.5-16.0); LYMPHOCYTES # (AUTO) 0.7 10^3/uL (1.0-4.0); LYMPHOCYTES % (AUTO) 6 % (12-44); MEAN CORPUSCULAR HEMOGLOBIN 30 pg (25-34); MEAN CORPUSCULAR HGB CONC 36 g/dL (32-36); MEAN CORPUSCULAR VOLUME 84 fL (80-99); MONOCYTES # (AUTO) 0.4 10^3/uL (0.0-1.0); MONOCYTES % (AUTO) 3 % (0-12); NEUTROPHILS # (AUTO) 10.3 10^3/uL (1.8-7.8); NEUTROPHILS % (AUTO) 90 % (42-75); PLATELET COUNT 180 10^3/uL (130-400); WHITE BLOOD COUNT 11.5 10^3/uL (4.3-11.0)
[2020-12-31 04:33] LABS: ABG BASE EXCESS -2.6 MMOL/L (-2.5-2.5); ABG OXYGEN SATURATION 92 % (94-100); ABG PCO2 30 MMHG (35-45); ABG PH 7.45 (7.37-7.43); ABG PO2 55 MMHG (79-93); ABG TCO2 21.4 MMOL/L (21.0-31.0)
[2020-12-31 04:48] LABS: ALLENS TEST YES-POS; INSPIRED O2 40; PATIENT TEMP 38.3; VENTILATOR NO
[2020-12-31 05:07] LABS: CALCIUM 7.4 MG/DL (8.5-10.1); CREATININE SERUM 2.59 MG/DL (0.60-1.30); MAGNESIUM 1.8 MG/DL (1.6-2.4); PHOSPHORUS 1.9 MG/DL (2.3-4.7); POTASSIUM 3.8 MMOL/L (3.6-5.0)
[2020-12-31] MEDS: POTASSIUM CL 10MEQ/50ML IVPB 50 ML IV SCH (05:16)
[2020-12-31] MEDS: KCL 20 MEQ TAB (K-DUR) PO SCH (05:16)
[2020-12-31] MEDS: MAGNESIUM 1 GM/100 ML IVPB 100 ML IV SCH (05:16)
[2020-12-31] MEDS: RT-ALBUTEROL INHALER HFA (VENTOLIN HFA) 18 GM IH PRN ×6 (07:10→22:10)
--- NOTE | 2020-12-31 07:33 | Diagnostic Imaging Report ---
INDICATION: COVID positive, shortness of air, ICU care management. TECHNIQUE: Single view chest 3:15 AM. CORRELATION STUDY: 12/30/2020 FINDINGS: Right IJ central line tip over low SVC. Heart size and mediastinum are generally stable. Vasculature however is increased with what appears to be some pulmonary vascular congestion and edema. Scattered bilateral pulmonary opacities are present, overall appear increased as well left greater than right. Probable bilateral pleural effusions. IMPRESSION: 1. Increasing bilateral pulmonary opacities. While may reflect worsening COVID pneumonia, given the overall appearance, does raise concern for underlying vascular congestion and edema as well. Dictated by: Dictated on workstation # [id number]
[2020-12-31] MEDS: MICONAZOLE 2% POWDER (DESENEX AF) 90 GM TOP SCH ×2 (07:59→22:10)
[2020-12-31] MEDS: LACTATED RINGERS 1,000 ML IV SCH ×2 (08:00→22:10)
--- NOTE | 2020-12-31 09:32 | Pulmonary Progress Note ---
Subjective Date Seen by a Provider: Dec 31, 2020 Time Seen by a Provider: 09:31 Sepsis Event Evaluation Height, Weight, BMI Height: '" Weight: lbs. oz. kg; 41.18 BMI Method:Stated Focused Exam Lactate Level 12/29/20 09:27: Lactic Acid Level 0.90 Exam Exam Patient acknowledged, consented, and participated in this virtual visit which was conducted using real time audio/video Vital Signs Date Time Temp Pulse Resp B/P (MAP) Pulse Ox O2 Delivery O2 Flow Rate FiO2 12/31/20 08:00 37.9 12/31/20 08:00 88 24 126/63 (84) 85 Vapotherm 40.00 100.00 12/31/20 08:00 Vapotherm 40.00 100 12/31/20 07:13 92 Vapotherm 40.00 100 12/31/20 07:00 96 37 139/70 (93) 84 Vapotherm 40.00 100.00 12/31/20 06:38 95 12/31/20 06:00 90 36 144/69 (99) 90 Vapotherm 40.00 100.00 12/31/20 05:00 88 37 145/68 (94) 87 Vapotherm 40.00 100.00 12/31/20 04:00 86 32 133/49 (79) 89 Vapotherm 40.00 100.00 12/31/20 04:00 Vapotherm 40.00 100 12/31/20 03:00 90 38 143/73 (96) 88 Vapotherm 40.00 100.00 12/31/20 02:45 90 Vapotherm 40.00 100 12/31/20 02:00 78 26 138/70 (92) 93 Vapotherm 40.00 100.00 12/31/20 01:26 Vapotherm 40.00 100.00 12/31/20 01:00 76 39 127/69 (88) 92 Vapotherm 40.00 90.00 12/31/20 01:00 76 12/31/20 00:00 75 125/65 (85) 92 Vapotherm 40.00 90.00 12/30/20 23:38 Vapotherm 40.00 90 12/30/20 23:00 76 36 123/67 (85) 93 Vapotherm 40.00 90.00 12/30/20 22:21 91 Vapotherm 40.00 90 12/30/20 22:00 76 124/71 (88) 92 Vapotherm 40.00 90.00 12/30/20 21:00 83 115/65 (76) 92 Vapotherm 40.00 90.00 12/30/20 20:00 88 113/51 (65) 92 Vapotherm 40.00 90.00 12/30/20 20:00 Vapotherm 40.00 90 12/30/20 20:00 37.0 12/30/20 19:05 91 Vapotherm 40.00 90 12/30/20 19:00 85 12/30/20 19:00 86 122/62 (98) 90 Vapotherm 40.00 90.00 12/30/20 18:00 82 21 110/54 (72) 94 Vapotherm 40.00 90.00 12/30/20 17:00 73 26 91/65 (74) 95 Vapotherm 40.00 90.00 12/30/20 16:35 Vapotherm 40.00 90 12/30/20 16:24 Vapotherm 40.00 90.00 12/30/20 16:00 81 11 102/60 (74) 93 Vapotherm 40.00 80.00 12/30/20 15:48 36.8 12/30/20 15:00 77 32 126/65 (85) 93 Vapotherm 40.00 80.00 12/30/20 14:15 89 Vapotherm 40.00 80 12/30/20 14:00 78 28 127/59 (81) 93 Vapotherm 40.00 80.00 12/30/20 13:00 85 21 104/54 (71) 91 Vapotherm 40.00 80.00 12/30/20 12:39 Vapotherm 40.00 80.00 12/30/20 12:36 88 12/30/20 12:34 35.6 Vapotherm 40.00 70.00 12/30/20 12:18 Vapotherm 40.00 80 12/30/20 12:00 78 22 130/39 (69) 91 Vapotherm 40.00 100.00 12/30/20 11:00 85 11 94/88 (90) 91 Vapotherm 40.00 100.00 12/30/20 10:19 96 Vapotherm 40.00 100 12/30/20 10:00 89 12 128/80 (96) 94 Vapotherm 40.00 100.00 I & O 12/31/20 07:00 Intake Total 1770 ml Output Total 2725 ml Balance -955 ml Height & Weight Height: '" Weight: lbs. oz. kg; 41.18 BMI Method:Stated General Appearance: No Apparent Distress, Chronically ill, Obese HEENT: PERRL/EOMI; No Scleral Icterus (L), No Scleral Icterus (R); Other (dry mucous membranes) Neck: Normal Inspection, Supple Respiratory: No Accessory Muscle Use, Decreased Breath Sounds, Rhonci Cardiovascular: Regular Rate, Rhythm, No Murmur Capillary Refill: Less Than 3 Seconds Gastrointestinal: normal bowel sounds, non tender Extremity: No Calf Tenderness, No Pedal Edema, Pedal Edema Neurologic/Psychiatric: Alert, Oriented x3 (slowed speech), Normal Mood/Affect Skin: Normal Color, Warm/Dry Results Lab Laboratory Tests 12/29/20 16:40 12/30/20 03:50 12/31/20 03:30 Assessment/Plan Assessment/Plan (Tele-ICU Physician , Progress Note ) Available chart/ vitals / labs / Images reviewed Video assessment done using teleICU camera, rest of exam as per RN Discussed with RN Events overnight : refused to prone Afebrile hemodynamically stable, no pressors, I/O = pos 1L Drips: LFT's are elevated, need to be monitored As per RN exam : [email or web address] Ro Consultants: Hospital course: 12/29- admitte dwith COVID PNA on remdesivir and decadraon, d dimer 3, on once a day Lovenox 12/31 vapotherm 40 lpm FiO2 100% - RR 20 - 40 CXR 12/31 - worsening A/P Avute resp failure , CCovid PNA vapotherm 40 lpm FiO2 100% - as per RN - PCP discussed possible intubation - pateent deferred dsicions to family COVID PNA - remdesiivir - 12/30 - remdesivir offwith ? Cr - decadron 6 iv - Heparin sQ - D dimer 3.85 on 12/29 ( can not do CT with ?Cr ) - leslie morris , -order ECHO and US LE - need to know EF and RVSP to balnace IVF / diuresis / AC Leukocytosis - 12/29 - coag neg staph 1/2, urine MRSA swab neg Hyponatremia - admitted 118 12/29 =>12/31 to 127 - cont to monitor ELZA - admit Cr 3, slow improving to 2.5 - consider diuresis - await BNP and ECHO Transaminases - off remdesivir , probably due to COVID - follow Lines : R IJ 12/29 , (Central Line Necessity Reviewed) Shaw: RN feels needed due to drop in SpO2 when gets out of bed OG: Nutrition: po Analgesia: na Anxiety/ delirium na VTE Prophylaxis: hwp 5K q8 Stress Ulcer Prophylaxis: pepcid ( on steroids Glycemic Control: + Plans in collaboration with bedside consultants and IM MDs. Discussed with RN to reach out if any questions or concerns A total of 37 minutes of critical care time was devoted to this patient today, required to treat and/or prevent further deterioration of critical care condition ( as above ) . ALENA CRAVEN MD Dec 31, 2020 09:31
[2020-12-31] MEDS: FAMOTIDINE 20MG/2ML IV (PEPCID) IVP SCH (09:44)
--- NOTE | 2020-12-31 10:35 | Progress Note ---
Subjective Subjective Date Seen by Provider: Dec 31, 2020 Time Seen by Provider: 08:30 LOUIE IS A 70 Y/O FEMALE WHO IS A NEW PATIENT TO MY PRACTICE OF A FEW MONTHS AGO. SHE HAD BEEN HOSPITALIZED WITH A STROKE RECENTLY AND CHOSE TO ESTABLISH IN MY PRACTICE. SHE HAS HX OF CML, RENAL CARCINOMA STATUS POST NEPHRECTOMY SHE REPORTS THAT SHE IS "NOT BREATHING BAD" THIS MORNING AND FEELING BETTER. Review of Systems General: Fatigue, Malaise Pulmonary: Dyspnea Neurological: Weakness All Other Systems Reviewed All Other Systems Reviewed: Yes Objective Exam Vital Signs Vital Signs - First Documented 12/29/20 12/29/20 12/29/20 12/30/20 08:22 09:35 12:30 08:37 Temp 36.8 Pulse 82 Resp 35 B/P (MAP) 134/105 (115) Pulse Ox 98 O2 Delivery Non Rebreather O2 Flow Rate 4.00 FiO2 100 Capillary Refill : Less Than 3 Seconds General Appearance: No Apparent Distress, Chronically ill, Obese HEENT: PERRL/EOMI; No Scleral Icterus (L), No Scleral Icterus (R); Other (dry mucous membranes) Neck: Normal Inspection, Supple Respiratory: No Accessory Muscle Use, Crackles (BASES), Decreased Breath Sounds Cardiovascular: Regular Rate, Rhythm, No Murmur Gastrointestinal: Normal Bowel Sounds, Non Tender, Soft Back: Normal Inspection, No CVA Tenderness, No Vertebral Tenderness Extremity: No Calf Tenderness, No Pedal Edema Neurologic/Psychiatric: Alert, Oriented x3 (slowed speech), Normal Mood/Affect Skin: Normal Color, Warm/Dry Results Lab Laboratory Tests 12/31/20 03:30: White Blood Count 11.5H, Red Blood Count 3.91, Hemoglobin 11.9, Hematocrit 33L, Mean Corpuscular Volume 84, Mean Corpuscular Hemoglobin 30, Mean Corpuscular Hemoglobin Concent 36, Red Cell Distribution Width 14.6H, Platelet Count 180, Mean Platelet Volume 10.0, Immature Granulocyte % (Auto) 1, Neutrophils (%) (Auto) 90H, Lymphocytes (%) (Auto) 6L, Monocytes (%) (Auto) 3, Eosinophils (%) (Auto) 0, Basophils (%) (Auto) 0, Neutrophils # (Auto) 10.3H, Lymphocytes # (Auto) 0.7L, Monocytes # (Auto) 0.4, Eosinophils # (Auto) 0.0, Basophils # (Auto) 0.0, Immature Granulocyte # (Auto) 0.1, Sodium Level 127L, Potassium Level 3.8, Chloride Level 97L, Carbon Dioxide Level 20L, Anion Gap 10, Blood Urea Nitrogen 41H, Creatinine 2.59H, Estimat Glomerular Filtration Rate 18, BUN/Creatinine Ratio 16, Glucose Level 110H, Calcium Level 7.4L, Phosphorus Level 1.9L, Magnesium Level 1.8, B-Type Natriuretic Peptide 138.2H 12/31/20 04:25: Blood Gas Puncture Site LT RAD, Blood Gas Patient Temperature 38.3, Arterial Blood pH 7.45H, Arterial Blood Partial Pressure CO2 30L, Arterial Blood Partial Pressure O2 55L, Arterial Blood HCO3 21L, Arterial Blood Total CO2 21.4, Ar terial Blood Oxygen Saturation 92L, Arterial Blood Base Excess -2.6L, Nathan Test YES-POS, Blood Gas Ventilator Setting NO, Blood Gas Inspired Oxygen 40 12/31/20 09:45: D-Dimer 2.85H Microbiology 12/29/20 MRSA Screen - Final, Complete MRSA not isolated 12/29/20 Urine Culture - Final, Complete NO GROWTH 12/29/20 Blood Culture - Preliminary, Resulted No growth Assessment/Plan Assessment/Plan Admission Dx ACUTE HYPOXIC RESPIRATORY FAILURE COVID 19 PULMONARY INFECTION HX OF RENAL CELL CARCINOMA WITH NEPHRECTOMY HYPONATREMIA ACUTE ON CHRONIC RENAL FAILURE (STAGE 4) CHRONIC MYELOGENOUS LEUKEMIA ACUTELY ELEVATED LIVER ENZYMES DUE TO SHOCK MORBID OBESITY Assessment and Plan ACUTE HYPOXIC RESPIRATORY FAILURE COVID 19 PULMONARY INFECTION HX OF RENAL CELL CARCINOMA WITH NEPHRECTOMY HYPONATREMIA ACUTE ON CHRONIC RENAL FAILURE (STAGE 4) CHRONIC MYELOGENOUS LEUKEMIA ACUTELY ELEVATED LIVER ENZYMES DUE TO SHOCK MORBID OBESITY ACUTE HYPOXIC RESPIRATORY FAILURE DUE TO COVID 19 PULMONARY INFECTION WITH PNEUMONIA - PT ON DECADRON, RECEIVED CONVALESCENT PLASMA - CANNOT BE ON REMDESIVIR DUE TO HER LIVER FUNCTION AND RENAL FUNCTION. - E-ICU ON CONSULT FOR THIS PATIENT WITH PULMONARY CRITICAL CARE PHYSICIANS ROUNDING ON THE PATIENT VIRTUALLY. HX OF RENAL CELL CARCINOMA WITH NEPHRECTOMY AND ACUTE ON CHRONIC RENAL FAILURE (STAGE 4) - SUPPORTIVE CARE ONLY AT THIS TIME, RENAL ADJUSTMENT OF MEDICATIONS, IV FLUIDS. HYPONATREMIA - REPLENISHED WITH IV FLUIDS. - MONITOR LABS, REPLACE NEEDED. CHRONIC MYELOGENOUS LEUKEMIA - HOLDING GLEEVAC AT THIS TIME. ACUTELY ELEVATED LIVER ENZYMES DUE TO SHOCK AND COVID INFECTION - FLUIDS, SUPPORTIVE CARE, MONITOR LABS CLOSELY. - CANNOT GIVE REMDESIVIR DUE TO LIVER FAILURE MORBID OBESITY - WILL NEED TO BE ASSISTED WITH MOVEMENTS/PRONING, ETC. DVT PROPHYLAXIS WITH LOVENOX PT IS VERY HIGH RISK, I HAVE DISCUSSED HER CODE STATUS WITH HER AND ADVISED HER THAT I THINK THIS WILL TURN INTO A SITUATION WHERE SHE ENDS UP INTUBATED. SHE VOCALIZED UNDERSTANDING AND WISHED TO BE FULL CODE STATUS. I REITERATED TO LOUIE THAT SHE IS AT EXTREMELY HIGH RISK OF DYING WHILE IN THE HOSPITAL AND THAT WE WILL DO EVERYTHING WE CAN MEDICALLY TO HELP HER IMPROVE BUT WITH HER CML, RENAL FAILURE, AND OTHER COMORBID CONDITIONS SHE IS IN THE VERY HIGH RISK CATEGORY FOR POOR OUTCOME. Problems: (1) Acute respiratory failure (2) COVID-19 Admission Dx ACUTE HYPOXIC RESPIRATORY FAILURE COVID 19 PULMONARY INFECTION HX OF RENAL CELL CARCINOMA WITH NEPHRECTOMY HYPONATREMIA ACUTE ON CHRONIC RENAL FAILURE (STAGE 4) CHRONIC MYELOGENOUS LEUKEMIA ACUTELY ELEVATED LIVER ENZYMES DUE TO SHOCK MORBID OBESITY Clinical Quality Measures Admission Status Admission Dx ACUTE HYPOXIC RESPIRATORY FAILURE COVID 19 PULMONARY INFECTION HX OF RENAL CELL CARCINOMA WITH NEPHRECTOMY HYPONATREMIA ACUTE ON CHRONIC RENAL FAILURE (STAGE 4) CHRONIC MYELOGENOUS LEUKEMIA ACUTELY ELEVATED LIVER ENZYMES DUE TO SHOCK MORBID OBESITY SAMAN RAI MD Dec 31, 2020 10:35
[2020-12-31] MEDS: ACETAMINOPHEN 325 MG TABLET PO PRN (11:06)
[2020-12-31 11:27] VITALS: BP 126/54
[2020-12-31] MEDS: DexMEDEtomidine 250 ML DRIP 250 ML IV SCH ×2 (11:31→23:44)
[2020-12-31 11:37] VITALS: BP 148/76
--- NOTE | 2020-12-31 12:56 | Diagnostic Imaging Report ---
PROCEDURE: US Venous Lower Ext Fredi. TECHNIQUE: Multiple real-time grayscale images were obtained over the lower extremities in various projections, bilaterally. Additional duplex Doppler and color Doppler images were also obtained. INDICATION: Respiratory distress and bilateral leg pain. There is no evidence of right or left lower extremity DVT. Both lower extremity deep venous systems demonstrate normal compressibility with normal response to augmentation and Valsalva. No fluid collection or mass is detected. IMPRESSION: No evidence of right or left lower extremity DVT. Dictated by: Dictated on workstation # [id number]
[2020-12-31] MEDS ORDERED: PROPOFOL DRIP (ICU) 100 ML IV ONE (13:52)
[2020-12-31] MEDS ORDERED: NS IV 1000 ML 1,000 ML ONE (14:05)
[2020-12-31] MEDS: PROPOFOL DRIP (ICU) 100 ML IV SCH ×2 (14:20→19:48)
--- NOTE | 2020-12-31 14:34 | Anesthesia-Procedure Note ---
Procedures/Interventions Procedure Start/Stop/Diagnosis Date of Procedure: Dec 31, 2020 Start Time: 14:00 Stop Time: 14:30 Intubation RSI: Yes 100% pre-Ox, [id number]: Yes Intubation Method: orotracheal Videoscope used: Yes Grade View: 1 Medications: Propofol (200), Succinylcholine (80) Mask Ventilation: positive Positive End Tide CO2: Yes Breath Sounds after Intubation: bilateral-equal ETT Securred @ (cm): 24 Intubated with ease: Yes Intubation Complications: no complications Arterial Line Arterial Line Catheter: 20G Type: Radial Location: Right Procedure: prepped, draped in sterile fashion, good wave-form was obtained, patient tolerated procedure well, no immediate complications, post procedure area cleaned, post procedure dressing applied RACHAEL RUTHERFORD CRNA Dec 31, 2020 14:33
--- NOTE | 2020-12-31 14:39 | Physical Therapy Progress Note ---
Therapy Progress Note Patient intubated and sedated. PT will continue to monitor patient status and initiate treatment when patient is medically stable and able to actively participate with skilled therapy. STUART GREEN PT Dec 31, 2020 14:39
--- NOTE | 2020-12-31 15:00 | Diagnostic Imaging Report ---
INDICATION: Intubated patient. COMPARISON: Earlier same day FINDINGS: Single frontal radiographic view of the chest was obtained and demonstrates interval placement of endotracheal tube. Tip terminates below the clavicular heads above saqib. Gastric tube is also seen. Tip terminates near the GE junction. Right internal jugular central venous catheter is also present with tip projecting over the lower SVC. Lungs continue to show diffuse scattered patchy and confluent infiltrate. Overall, aeration stable when compared to earlier same day. No large effusion or pneumothorax is seen. Cardiac silhouette is moderately partially obscured, but appears stable as well. Osseous structures show no acute adverse interval change. IMPRESSION: 1. Stable bilateral diffuse infiltrate. 2. Lines and tubes as above. Dictated by: Dictated on workstation # [id number]
[2020-12-31 15:10] VITALS: BP 138/88
[2020-12-31] MEDS ORDERED: SUCCINYLCHOLINE INJ 100 MG/5 ML SYR/VIAL INJ ONE (15:39)
[2020-12-31 15:40] LABS: ABG BASE EXCESS -2.8 MMOL/L (-2.5-2.5); ABG OXYGEN SATURATION 91 % (94-100); ABG PCO2 34 MMHG (35-45); ABG PH 7.41 (7.37-7.43); ABG PO2 58 MMHG (79-93); ABG TCO2 22.1 MMOL/L (21.0-31.0)
[2020-12-31 15:41] LABS: ALLENS TEST ART LINE; INSPIRED O2 80%; PATIENT TEMP 37; VENTILATOR NO
[2020-12-31 18:42] VITALS: BP 138/88
[2020-12-31 22:10] VITALS: BP 139/55
[2021-01-01 00:15] LABS: ABG BASE EXCESS -3.4 MMOL/L (-2.5-2.5); ABG OXYGEN SATURATION 92 % (94-100); ABG PCO2 35 MMHG (35-45); ABG PH 7.39 (7.37-7.43); ABG PO2 59 MMHG (79-93); ABG TCO2 22.1 MMOL/L (21.0-31.0)
[2021-01-01 00:19] LABS: ALLENS TEST ART LINE; VENTILATOR NO
[2021-01-01 00:51] VITALS: BP 138/88
[2021-01-01 02:22] VITALS: BP 138/88
[2021-01-01] MEDS: RT-ALBUTEROL INHALER HFA (VENTOLIN HFA) 18 GM IH SCH ×6 (02:22→22:32)
[2021-01-01] MEDS: LACTATED RINGERS 1,000 ML IV SCH ×3 (03:12→23:33)
[2021-01-01] MEDS: guaiFENesin SYRUP 100 MG/5 ML 10 ML (ROBITUSSIN SF) PO SCH ×6 (03:13→23:49)
[2021-01-01 03:20] LABS: ABG BASE EXCESS -2.9 MMOL/L (-2.5-2.5); ABG OXYGEN SATURATION 93 % (94-100); ABG PCO2 35 MMHG (35-45); ABG PO2 59 MMHG (79-93); ABG TCO2 22.4 MMOL/L (21.0-31.0); BASOPHILS % (AUTO) 0 % (0-10); EOSINOPHILS % (AUTO) 0 % (0-10); HEMATOCRIT 33 % (35-52); HEMOGLOBIN 11.7 g/dL (11.5-16.0); LYMPHOCYTES # (AUTO) 0.7 10^3/uL (1.0-4.0); LYMPHOCYTES % (AUTO) 6 % (12-44); MEAN CORPUSCULAR HEMOGLOBIN 30 pg (25-34); MEAN CORPUSCULAR HGB CONC 36 g/dL (32-36); MEAN CORPUSCULAR VOLUME 85 fL (80-99); MEAN PLATELET VOLUME 10.2 fL (9.0-12.2); MONOCYTES # (AUTO) 0.2 10^3/uL (0.0-1.0); MONOCYTES % (AUTO) 2 % (0-12); NEUTROPHILS # (AUTO) 9.7 10^3/uL (1.8-7.8); NEUTROPHILS % (AUTO) 89 % (42-75); PLATELET COUNT 202 10^3/uL (130-400); WHITE BLOOD COUNT 10.9 10^3/uL (4.3-11.0)
[2021-01-01 03:25] LABS: ALLENS TEST ART LINE; PATIENT TEMP 36.1; VENTILATOR YES
[2021-01-01 03:44] LABS: ALBUMIN 2.5 GM/DL (3.2-4.5); BILIRUBIN,TOTAL 0.5 MG/DL (0.1-1.0); CALCIUM 7.6 MG/DL (8.5-10.1); CREATININE SERUM 2.71 MG/DL (0.60-1.30); MAGNESIUM 2.3 MG/DL (1.6-2.4); PHOSPHORUS 3.1 MG/DL (2.3-4.7); POTASSIUM 3.8 MMOL/L (3.6-5.0); TOTAL PROTEIN 5.3 GM/DL (6.4-8.2)
--- NOTE | 2021-01-01 05:52 | Diagnostic Imaging Report ---
EXAMINATION: Portable erect AP chest at 4:37 AM INDICATION: Respiratory distress, Covid In the interval since the prior exam of 12/31/2020 the patient has been extubated. The central venous catheter on the right seen previously remains unchanged in position. The heart is stable when compared to the prior exam and there are still alveolar/interstitial pulmonary infiltrates bilaterally. These findings are similar to the prior study. The upper lungs are relatively clear. The mediastinum is not widened. The osseous structures are intact. IMPRESSION: Stable postextubation chest. A follow-up study would be recommended for continued evaluation. Dictated by: Dictated on workstation # [id number]
[2021-01-01] MEDS: KCL 20 MEQ TAB (K-DUR) PO SCH (06:21)
[2021-01-01] MEDS: MAGNESIUM 1 GM/100 ML IVPB 100 ML IV SCH (06:21)
[2021-01-01] MEDS: POTASSIUM CL 10MEQ/50ML IVPB 50 ML IV SCH (06:21)
[2021-01-01 06:47] VITALS: BP 138/88
--- NOTE | 2021-01-01 07:17 | Progress Note ---
Subjective Subjective Date Seen by Provider: Jan 01, 2021 Time Seen by Provider: 07:40 LOUIE IS A 70 Y/O FEMALE WHO IS A NEW PATIENT TO MY PRACTICE OF A FEW MONTHS AGO. SHE HAD BEEN HOSPITALIZED WITH A STROKE RECENTLY AND CHOSE TO ESTABLISH IN MY PRACTICE. SHE HAS HX OF CML, RENAL CARCINOMA STATUS POST NEPHRECTOMY PT REPORTEDLY SELF EXTUBATED OVERNIGHT AND WAS PLACED ON BIPAP, SHE TOLERATED THE BIPAP FAIRLY WELL OVERNIGHT PER STAFF REPORT. Review of Systems General: Malaise Pulmonary: Dyspnea Cardiovascular: No: Chest Pain Gastrointestinal: No: Nausea, Vomiting Neurological: Weakness, Confusion All Other Systems Reviewed All Other Systems Reviewed: Yes Objective Exam Vital Signs Vital Signs - First Documented 12/29/20 12/29/20 12/29/20 12/30/20 08:22 09:35 12:30 08:37 Temp 36.8 Pulse 82 Resp 35 B/P (MAP) 134/105 (115) Pulse Ox 98 O2 Delivery Non Rebreather O2 Flow Rate 4.00 FiO2 100 Capillary Refill : Less Than 3 Seconds General Appearance: Chronically ill, Mild Distress, Obese HEENT: PERRL/EOMI; No Scleral Icterus (L), No Scleral Icterus (R); Other (dry mucous membranes) Neck: Normal Inspection, Supple Respiratory: No Accessory Muscle Use, Decreased Breath Sounds Cardiovascular: Regular Rate, Rhythm, No Murmur Gastrointestinal: Normal Bowel Sounds, Non Tender, Soft Back: Normal Inspection, No CVA Tenderness, No Vertebral Tenderness Extremity: No Calf Tenderness, No Pedal Edema Neurologic/Psychiatric: Alert, Oriented x3 (slowed speech), Normal Mood/Affect Skin: Normal Color, Warm/Dry Results Lab Laboratory Tests 12/31/20 09:45: D-Dimer 2.85H 12/31/20 15:31: Blood Gas Puncture Site RIGHT RADIAL ARTLINE, Blood Gas Patient Temperature 37, Arterial Blood pH 7.41, Arterial Blood Partial Pressure CO2 34L, Arterial Blood Partial Pressure O2 58L, Arterial Blood HCO3 21L, Arterial Blood Total CO2 22.1, Arterial Blood Oxygen Saturation 91L, Arterial Blood Base Excess -2.8L, Nathan Test ART LINE, Blood Gas Ventilator Setting NO, Blood Gas Inspired Oxygen 80% 01/01/21 00:10: Blood Gas Puncture Site ARTLINE, Blood Gas Patient Temperature 36.0, Arterial Blood pH 7.39, Arterial Blood Partial Pressure CO2 35, Arterial Blood Partial Pressure O2 59L, Arterial Blood HCO3 21L, Arterial Blood Total CO2 22.1, Arterial Blood Oxygen Saturation 92L, Arterial Blood Base Excess -3.4L, Nathan Test ART LINE, Blood Gas Ventilator Setting NO, Blood Gas Inspired Oxygen 55% 01/01/21 03:10: Blood Gas Puncture Site ART LINE, Blood Gas Patient Temperature 36.1, Arterial Blood pH 7.40, Arterial Blood Partial Pressure CO2 35, Arterial Blood Partial Pressure O2 59L, Arterial Blood HCO3 21L, Arterial Blood Total CO2 22.4, Arterial Blood Oxygen Saturation 93L, Arterial Blood Base Excess -2.9L, Nathan Test ART LINE, Blood Gas Ventilator Setting YES, Blood Gas Inspired Oxygen 55%, White Blood Count 10.9, Red Blood Count 3.88, Hemoglobin 11.7, Hematocrit 33L, Mean Corpuscular Volume 85, Mean Corpuscular Hemoglobin 30, Mean Corpuscular Hemoglobin Concent 36, Red Cell Distribution Width 15.0H, Platelet Count 202, Mean Platelet Volume 10.2, Immature Granulocyte % (Auto) 2, Neutrophils (%) (Auto) 89H, Lymphocytes (%) (Auto) 6L, Monocytes (%) (Auto) 2, Eosinophils (%) (Auto) 0, Basophils (%) (Auto) 0, Neutrophils # (Auto) 9.7H, Lymphocytes # (Auto) 0.7L, Monocytes # (Auto) 0.2, Eosinophils # (Auto) 0.0, Basophils # (Auto) 0.0, Immature Granulocyte # (Auto) 0.2H, Sodium Level 129L, Potassium Level 3.8, Chloride Level 100, Carbon Dioxide Level 18L, Anion Gap 11, Blood Urea Nitrogen 46H, Creatinine 2.71H, Estimat Glomerular Filtration Rate 17, BUN/Creatinine Ratio 17, Glucose Level 169H, Calcium Level 7.6L, Corrected Calcium 8.8, Phosphorus Level 3.1, Magnesium Level 2.3, Total Bilirubin 0.5, Aspartate Amino Transf (AST/SGOT) 94H, Alanine Aminotransferase (ALT/SGPT) 66H, Alkaline Phosphatase 72, Total Protein 5.3L, Albumin 2.5L, Triglycerides Level 225H Microbiology 12/31/20 Gram Stain - Final, Resulted 12/31/20 Sputum Culture, Resulted Pending 12/29/20 Urine Culture - Final, Complete NO GROWTH 12/29/20 Blood Culture - Preliminary, Resulted No growth Assessment/Plan Assessment/Plan Admission Dx ACUTE HYPOXIC RESPIRATORY FAILURE COVID 19 PULMONARY INFECTION HX OF RENAL CELL CARCINOMA WITH NEPHRECTOMY HYPONATREMIA ACUTE ON CHRONIC RENAL FAILURE (STAGE 4) CHRONIC MYELOGENOUS LEUKEMIA ACUTELY ELEVATED LIVER ENZYMES DUE TO SHOCK MORBID OBESITY Assessment and Plan ACUTE HYPOXIC RESPIRATORY FAILURE COVID 19 PULMONARY INFECTION HX OF RENAL CELL CARCINOMA WITH NEPHRECTOMY HYPONATREMIA ACUTE ON CHRONIC RENAL FAILURE (STAGE 4) CHRONIC MYELOGENOUS LEUKEMIA ACUTELY ELEVATED LIVER ENZYMES DUE TO SHOCK MORBID OBESITY ACUTE HYPOXIC RESPIRATORY FAILURE DUE TO COVID 19 PULMONARY INFECTION WITH PNEUMONIA - PT ON DECADRON, RECEIVED CONVALESCENT PLASMA - CANNOT BE ON REMDESIVIR DUE TO HER LIVER FUNCTION AND RENAL FUNCTION. - E-ICU ON CONSULT FOR THIS PATIENT WITH PULMONARY CRITICAL CARE PHYSICIANS ROUNDING ON THE PATIENT VIRTUALLY. HX OF RENAL CELL CARCINOMA WITH NEPHRECTOMY AND ACUTE ON CHRONIC RENAL FAILURE (STAGE 4) - SUPPORTIVE CARE ONLY AT THIS TIME, RENAL ADJUSTMENT OF MEDICATIONS, IV FLUIDS. HYPONATREMIA - REPLENISHED WITH IV FLUIDS. - MONITOR LABS, REPLACE NEEDED. CHRONIC MYELOGENOUS LEUKEMIA - HOLDING GLEEVAC AT THIS TIME. ACUTELY ELEVATED LIVER ENZYMES DUE TO SHOCK AND COVID INFECTION - FLUIDS, SUPPORTIVE CARE, MONITOR LABS CLOSELY. - CANNOT GIVE REMDESIVIR DUE TO LIVER FAILURE MORBID OBESITY - WILL NEED TO BE ASSISTED WITH MOVEMENTS/PRONING, ETC. DVT PROPHYLAXIS WITH LOVENOX PT IS VERY HIGH RISK, I HAVE DISCUSSED HER CODE STATUS WITH HER AND ADVISED HER THAT I THINK THIS WILL TURN INTO A SITUATION WHERE SHE ENDS UP INTUBATED. SHE VOCALIZED UNDERSTANDING AND WISHED TO BE FULL CODE STATUS. I REITERATED TO LOUIE THAT SHE IS AT EXTREMELY HIGH RISK OF DYING WHILE IN THE HOSPITAL AND THAT WE WILL DO EVERYTHING WE CAN MEDICALLY TO HELP HER IMPROVE BUT WITH HER CML, RENAL FAILURE, AND OTHER COMORBID CONDITIONS SHE IS IN THE VERY HIGH RISK CATEGORY FOR POOR OUTCOME. ECHO REPORT LV - M ILD CONCENTRIC HYPERTROPHY, EJECTION FRACTION 70%, MILD PULM HTN 40-45MMHG Problems: (1) Acute respiratory failure (2) COVID-19 Admission Dx ACUTE HYPOXIC RESPIRATORY FAILURE COVID 19 PULMONARY INFECTION HX OF RENAL CELL CARCINOMA WITH NEPHRECTOMY HYPONATREMIA ACUTE ON CHRONIC RENAL FAILURE (STAGE 4) CHRONIC MYELOGENOUS LEUKEMIA ACUTELY ELEVATED LIVER ENZYMES DUE TO SHOCK MORBID OBESITY Clinical Quality Measures Admission Status Admission Dx ACUTE HYPOXIC RESPIRATORY FAILURE COVID 19 PULMONARY INFECTION HX OF RENAL CELL CARCINOMA WITH NEPHRECTOMY HYPONATREMIA ACUTE ON CHRONIC RENAL FAILURE (STAGE 4) CHRONIC MYELOGENOUS LEUKEMIA ACUTELY ELEVATED LIVER ENZYMES DUE TO SHOCK MORBID OBESITY SAMAN RAI MD Jan 01, 2021 07:17
[2021-01-01] MEDS ORDERED: hydrALAZINE (APESOLINE) 20 MG/ML VIAL ONE (07:54)
[2021-01-01] MEDS ORDERED: hydrALAZINE (APESOLINE) 20 MG/ML VIAL IV ONE (08:00)
[2021-01-01] MEDS ORDERED: DexMEDEtomidine 250 ML DRIP 250 ML IV SCH (08:00)
[2021-01-01] MEDS: DexMEDEtomidine 250 ML DRIP 250 ML IV SCH ×3 (08:02→23:33)
[2021-01-01] MEDS: FAMOTIDINE 20MG/2ML IV (PEPCID) IVP SCH (08:06)
[2021-01-01] MEDS: PANTOPRAZOLE 40 MG (PROTONIX) VIAL IV SCH (08:06)
--- NOTE | 2021-01-01 08:24 | Tele-ICU Progress Note ---
Subjective Date Seen by a Provider: Jan 01, 2021 Time Seen by a Provider: 09:14 Subjective/Events-last exam Admitted with COVID PNA on BiPAP 14/ FiO2 70%, on Decadron 6 mg/d Self Extubated yesterday, CXR same with bilateral GGO BP up at 197/57, given 10 hydralazine IV, did not work, will give 10 mg IV Labetolol SpO2 ok, WOB up slightly but not in need of intubation, spont RR 36, able to speak full sentences, Sepsis Event Evaluation Height, Weight, BMI Height: '" Weight: lbs. oz. kg; 41.18 BMI Method:Stated Focused Exam Lactate Level 12/29/20 09:27: Lactic Acid Level 0.90 Exam Exam Patient acknowledged, consented, and participated in this virtual visit which was conducted using real time audio/video Vital Signs Date Time Temp Pulse Resp B/P (MAP) Pulse Ox O2 Delivery O2 Flow Rate FiO2 01/01/21 08:17 36.2 01/01/21 08:02 86 207/61 01/01/21 06:47 73 26 89 50.00 01/01/21 06:22 NIV Bilevel 50.00 01/01/21 06:00 70 27 NIV Bilevel 55.00 01/01/21 05:00 64 26 92 NIV Bilevel 55.00 01/01/21 04:00 61 24 92 NIV Bilevel 55.00 01/01/21 04:00 NIV Bilevel 50 01/01/21 03:00 55 23 92 NIV Bilevel 55.00 01/01/21 02:22 65 24 92 55.00 01/01/21 02:21 NIV Bilevel 55.00 01/01/21 02:00 56 25 90 NIV Bilevel 50.00 01/01/21 01:00 58 01/01/21 01:00 58 23 92 NIV Bilevel 50.00 01/01/21 00:51 61 24 92 45.00 01/01/21 00:05 60 21 89 NIV Bilevel 50.00 01/01/21 00:00 Mechanical Ventilator 55 01/01/21 00:00 61 31 80 Room Air 12/31/20 23:44 51 138/54 12/31/20 23:00 50 20 93 Mechanical Ventilator 55.00 12/31/20 22:10 50 20 95 55 12/31/20 22:00 49 20 94 Mechanical Ventilator 55.00 12/31/20 21:00 51 19 95 Mechanical Ventilator 55.00 12/31/20 20:00 52 20 95 Mechanical Ventilator 55.00 12/31/20 20:00 Mechanical Ventilator 55 12/31/20 19:48 53 12/31/20 19:05 53 19 95 Mechanical Ventilator 55.00 12/31/20 19:00 54 12/31/20 18:42 50 20 96 60 12/31/20 18:00 60.00 12/31/20 16:11 36.5 70.00 12/31/20 16:00 56 19 135/51 (79) 98 Mechanical Ventilator 100.00 12/31/20 16:00 Mechanical Ventilator 70 12/31/20 15:10 58 20 100 100 12/31/20 15:00 60 22 148/76 (100) 99 Mechanical Ventilator 100.00 12/31/20 14:30 Automatic Cuff 12/31/20 14:20 72 12/31/20 14:14 100 12/31/20 14:00 Mechanical Ventilator 100.00 12/31/20 14:00 66 35 150/91 (110) 96 Mechanical Ventilator 100.00 12/31/20 13:00 25 141/74 (96) 92 NIV Bilevel 80.00 12/31/20 12:45 95 12/31/20 12:42 NIV Bilevel 80.00 12/31/20 12:00 NIV Bilevel 80 12/31/20 12:00 72 32 134/78 (96) 98 Vapotherm 40.00 100.00 12/31/20 11:37 38.0 81 42 148/76 96 NIV Bilevel 90 12/31/20 11:36 37.6 12/31/20 11:31 85 126/54 12/31/20 11:29 38.0 NIV Bilevel 90.00 12/31/20 11:27 38.0 89 35 126/54 96 NIV Bilevel 100 12/31/20 11:15 NIV Bilevel 100.00 12/31/20 11:10 89 38 96 100.00 12/31/20 11:06 38.0 12/31/20 11:00 33 126/54 (78) 84 Vapotherm 40.00 100.00 12/31/20 10:00 27 133/54 (80) 87 Vapotherm 40.00 100.00 12/31/20 09:00 87 30 120/65 (83) 90 Vapotherm 40.00 100.00 I & O 01/01/21 07:00 Intake Total 1803 ml Output Total 1325 ml Balance 478 ml Height & Weight Height: '" Weight: lbs. oz. kg; 41.18 BMI Method:Stated General Appearance: No Apparent Distress, Chronically ill, Moderate Distress, Obese HEENT: PERRL/EOMI; No Scleral Icterus (L), No Scleral Icterus (R); Other (dry mucous membranes) Neck: Normal Inspection, Supple Respiratory: No Accessory Muscle Use, Crackles, Decreased Breath Sounds Cardiovascular: Regular Rate, Rhythm, No Murmur Capillary Refill: Less Than 3 Seconds Gastrointestinal: non tender, soft, other (decreased BS) Extremity: No Calf Tenderness, No Pedal Edema, Pedal Edema Neurologic/Psychiatric: Alert, Oriented x3 (slowed speech), Normal Mood/Affect Skin: Normal Color, Warm/Dry Results Lab Laboratory Tests 12/31/20 03:30 01/01/21 03:10 Assessment/Plan Assessment/Plan COVID PNA, will continue on BiPAP and monitor oxygenation, continue Decadron Cr 2.71, not on Remdesivir\\ Monitor oxygenation, right now does not need intubation Critical Care: Critically Ill Patient Time spent with patient (mins): 15 ANANYA ALMAZAN MD Jan 01, 2021 08:24
[2021-01-01] MEDS ORDERED: LABETALOL HCL 20 MG/4 ML VIAL IV ONE (09:15)
--- NOTE | 2021-01-01 09:45 | Physical Therapy Progress Note ---
Therapy Progress Note Patient extubated herself. Checked with nurse and she states patient probably isn't stable enough to see today, hold and try in the morning. Informed nurse that we will need new orders to see her. KARIE OSULLIVAN PT Jan 01, 2021 09:45
--- NOTE | 2021-01-01 09:51 | Occ Therapy Progress Note ---
Therapy Progress Note Will continue to monitor pt. and assess for treatment when new orders sent. PT spoke to nursing on behalf of therapy and pt. extubated self. Not ready for therapy yet but therapy will check in a.m. Request new physician orders sent when medically stable and ready for skilled therapeutic treatment. [id number] NYDIA ROCHA OT Jan 01, 2021 09:51
[2021-01-01 11:16] VITALS: BP 138/88
[2021-01-01] MEDS: MICONAZOLE 2% POWDER (DESENEX AF) 90 GM TOP SCH ×2 (12:41→20:51)
[2021-01-01 15:00] VITALS: BP 138/88
[2021-01-01] MEDS: RT-ALBUTEROL INHALER HFA (VENTOLIN HFA) 18 GM IH PRN (19:47)
[2021-01-01 22:33] VITALS: BP 138/88
[2021-01-02 01:49] LABS: BASOPHILS % (AUTO) 0 % (0-10); EOSINOPHILS % (AUTO) 0 % (0-10); HEMATOCRIT 33 % (35-52); HEMOGLOBIN 11.6 g/dL (11.5-16.0); LYMPHOCYTES # (AUTO) 0.8 10^3/uL (1.0-4.0); LYMPHOCYTES % (AUTO) 7 % (12-44); MEAN CORPUSCULAR HEMOGLOBIN 30 pg (25-34); MEAN CORPUSCULAR HGB CONC 35 g/dL (32-36); MEAN CORPUSCULAR VOLUME 85 fL (80-99); MEAN PLATELET VOLUME 9.8 fL (9.0-12.2); MONOCYTES # (AUTO) 0.3 10^3/uL (0.0-1.0); MONOCYTES % (AUTO) 3 % (0-12); NEUTROPHILS # (AUTO) 10.1 10^3/uL (1.8-7.8); NEUTROPHILS % (AUTO) 85 % (42-75); PLATELET COUNT 230 10^3/uL (130-400); WHITE BLOOD COUNT 11.9 10^3/uL (4.3-11.0)
[2021-01-02 01:59] LABS: ALBUMIN 2.6 GM/DL (3.2-4.5); POTASSIUM 3.8 MMOL/L (3.6-5.0)
[2021-01-02 02:00] LABS: CALCIUM 7.5 MG/DL (8.5-10.1)
[2021-01-02 02:02] LABS: TOTAL PROTEIN 5.2 GM/DL (6.4-8.2)
[2021-01-02 02:03] LABS: BILIRUBIN,TOTAL 0.5 MG/DL (0.1-1.0)
[2021-01-02 02:05] LABS: CREATININE SERUM 2.29 MG/DL (0.60-1.30); PHOSPHORUS 2.9 MG/DL (2.3-4.7)
[2021-01-02 02:08] LABS: MAGNESIUM 2.1 MG/DL (1.6-2.4)
[2021-01-02 02:09] LABS: ABG BASE EXCESS -3.2 MMOL/L (-2.5-2.5); ABG OXYGEN SATURATION 91 % (94-100); ABG PCO2 32 MMHG (35-45); ABG PH 7.42 (7.37-7.43); ABG PO2 58 MMHG (79-93); ABG TCO2 21.6 MMOL/L (21.0-31.0)
[2021-01-02 02:11] LABS: ALLENS TEST ARTLINE
[2021-01-02 02:12] LABS: INSPIRED O2 50%; PATIENT TEMP 36.6; VENTILATOR NO
[2021-01-02 02:20] VITALS: BP 138/88
[2021-01-02] MEDS: RT-ALBUTEROL INHALER HFA (VENTOLIN HFA) 18 GM IH SCH ×6 (02:20→22:00)
[2021-01-02] MEDS: guaiFENesin SYRUP 100 MG/5 ML 10 ML (ROBITUSSIN SF) PO SCH ×6 (04:45→23:45)
[2021-01-02] MEDS: POTASSIUM CL 10MEQ/50ML IVPB 50 ML IV SCH (04:45)
[2021-01-02] MEDS: KCL 20 MEQ TAB (K-DUR) PO SCH (04:46)
[2021-01-02] MEDS: MAGNESIUM 1 GM/100 ML IVPB 100 ML IV SCH (04:46)
[2021-01-02] MEDS: DexMEDEtomidine 250 ML DRIP 250 ML IV SCH ×2 (05:33→22:06)
[2021-01-02 06:37] VITALS: BP 138/88
--- NOTE | 2021-01-02 08:46 | Progress Note ---
Subjective Subjective Date Seen by Provider: Jan 02, 2021 Time Seen by Provider: 08:40 LOUIE IS A 70 Y/O FEMALE WHO IS A NEW PATIENT TO MY PRACTICE OF A FEW MONTHS AGO. SHE HAS HX OF CML, RENAL CARCINOMA STATUS POST NEPHRECTOMY PT HAS BEEN TOLERATING BIPAP WELL PER REVIEW OF CHART AND STAFF REPORT. Review of Systems General: Fatigue, Malaise Pulmonary: Dyspnea Genitourinary: Other (BROWN IN PLACE) Neurological: Weakness, Confusion All Other Systems Reviewed All Other Systems Reviewed: Yes Objective Exam Vital Signs Vital Signs - First Documented 12/29/20 12/29/20 12/29/20 12/30/20 08:22 09:35 12:30 08:37 Temp 36.8 Pulse 82 Resp 35 B/P (MAP) 134/105 (115) Pulse Ox 98 O2 Delivery Non Rebreather O2 Flow Rate 4.00 FiO2 100 Capillary Refill : Less Than 3 Seconds General Appearance: Chronically ill, Mild Distress, Obese HEENT: PERRL/EOMI; No Scleral Icterus (L), No Scleral Icterus (R); Other (dry mucous membranes) Neck: Normal Inspection, Supple Respiratory: No Accessory Muscle Use, Crackles, Decreased Breath Sounds Cardiovascular: Regular Rate, Rhythm, No Murmur Gastrointestinal: Normal Bowel Sounds, Non Tender, Soft Back: Normal Inspection, No CVA Tenderness, No Vertebral Tenderness Extremity: No Calf Tenderness, No Pedal Edema, Pedal Edema Neurologic/Psychiatric: Alert, Normal Mood/Affect, Disoriented Skin: Normal Color, Warm/Dry Results Lab Laboratory Tests 01/02/21 01:30: White Blood Count 11.9H, Red Blood Count 3.87, Hemoglobin 11.6, Hematocrit 33L, Mean Corpuscular Volume 85, Mean Corpuscular Hemoglobin 30, Mean Corpuscular Hemoglobin Concent 35, Red Cell Distribution Width 15.3H, Platelet Count 230, Mean Platelet Volume 9.8, Immature Granulocyte % (Auto) 6, Neutrophils (%) (Auto) 85H, Lymphocytes (%) (Auto) 7L, Monocytes (%) (Auto) 3, Eosinophils (%) (Auto) 0, Basophils (%) (Auto) 0, Neutrophils # (Auto) 10.1H, Lymphocytes # (Auto) 0.8L, Monocytes # (Auto) 0.3, Eosinophils # (Auto) 0.0, Basophils # (Auto) 0.0, Immature Granulocyte # (Auto) 0.7H, Blood Gas Puncture Site ARTLINE, Blood Gas Patient Temperature 36.6, Arterial Blood pH 7.42, Arterial Blood Partial Pressure CO2 32L, Arterial Blood Partial Pressure O2 58L, Arterial Blood HCO3 21L, Arterial Blood Total CO2 21.6, Arterial Blood Oxygen Saturation 91L, A rterial Blood Base Excess -3.2L, Nathan Test ARTLINE, Blood Gas Ventilator Setting NO, Blood Gas Inspired Oxygen 50%, Sodium Level 136, Potassium Level 3.8, Chloride Level 104, Carbon Dioxide Level 18L, Anion Gap 14, Blood Urea Nitrogen 50H, Creatinine 2.29H, Estimat Glomerular Filtration Rate 21, BUN/Creatinine Ratio 22, Glucose Level 169H, Calcium Level 7.5L, Corrected Calcium 8.6, Phosphorus Level 2.9, Magnesium Level 2.1, Total Bilirubin 0.5, Aspartate Amino Transf (AST/SGOT) 71H, Alanine Aminotransferase (ALT/SGPT) 63H, Alkaline Phosphatase 74, Total Protein 5.2L, Albumin 2.6L Microbiology 12/31/20 Gram Stain - Final, Resulted 12/31/20 Sputum Culture - Preliminary, Resulted No growth 12/29/20 Urine Culture - Final, Complete NO GROWTH 12/29/20 Blood Culture - Preliminary, Resulted No growth Assessment/Plan Assessment/Plan Admission Dx ACUTE HYPOXIC RESPIRATORY FAILURE COVID 19 PULMONARY INFECTION HX OF RENAL CELL CARCINOMA WITH NEPHRECTOMY HYPONATREMIA ACUTE ON CHRONIC RENAL FAILURE (STAGE 4) CHRONIC MYELOGENOUS LEUKEMIA ACUTELY ELEVATED LIVER ENZYMES DUE TO SHOCK MORBID OBESITY Assessment and Plan ACUTE HYPOXIC RESPIRATORY FAILURE COVID 19 PULMONARY INFECTION HX OF RENAL CELL CARCINOMA WITH NEPHRECTOMY HYPONATREMIA ACUTE ON CHRONIC RENAL FAILURE (STAGE 4) CHRONIC MYELOGENOUS LEUKEMIA ACUTELY ELEVATED LIVER ENZYMES DUE TO SHOCK MORBID OBESITY ACUTE HYPOXIC RESPIRATORY FAILURE DUE TO COVID 19 PULMONARY INFECTION WITH PNEUMONIA - PT ON DECADRON, RECEIVED CONVALESCENT PLASMA - CANNOT BE ON REMDESIVIR DUE TO HER LIVER FUNCTION AND RENAL FUNCTION. - E-ICU ON CONSULT FOR THIS PATIENT WITH PULMONARY CRITICAL CARE PHYSICIANS ROUNDING ON THE PATIENT VIRTUALLY. - PT IS STILL TENUOUS, SHE IS CURRENTLY ON VAPOTHERM, SHE IS WORKING A LITTLE HARDER TO BREATHE, FAMILY WANTS TO AVOID INTUBATION IF ABLE. HX OF RENAL CELL CARCINOMA WITH NEPHRECTOMY AND ACUTE ON CHRONIC RENAL FAILURE (STAGE 4) - SUPPORTIVE CARE ONLY AT THIS TIME, RENAL ADJUSTMENT OF MEDICATIONS, IV FLUIDS. - RENAL FUNCTION IMPROVING, CONTINUE WITH SERIAL MONITORING HYPONATREMIA - REPLENISHED WITH IV FLUIDS. - MONITOR LABS, REPLACE NEEDED. CHRONIC MYELOGENOUS LEUKEMIA - HOLDING GLEEVAC AT THIS TIME. ACUTELY ELEVATED LIVER ENZYMES DUE TO SHOCK AND COVID INFECTION - FLUIDS, SUPPORTIVE CARE, MONITOR LABS CLOSELY. - CANNOT GIVE REMDESIVIR DUE TO LIVER FAILURE MORBID OBESITY - WILL NEED TO BE ASSISTED WITH MOVEMENTS/PRONING, ETC. DVT PROPHYLAXIS WITH LOVENOX PT IS VERY HIGH RISK, I HAVE DISCUSSED HER CODE STATUS WITH HER AND ADVISED HER THAT I THINK THIS WILL TURN INTO A SITUATION WHERE SHE ENDS UP INTUBATED. SHE VOCALIZED UNDERSTANDING AND WISHED TO BE FULL CODE STATUS. I REITERATED TO LOUIE THAT SHE IS AT EXTREMELY HIGH RISK OF DYING WHILE IN THE HOSPITAL AND THAT WE WILL DO EVERYTHING WE CAN MEDICALLY TO HELP HER IMPROVE BUT WITH HER CML, RENAL FAILURE, AND OTHER COMORBID CONDITIONS SHE IS IN THE VERY HIGH RISK CATEGORY FOR POOR OUTCOME. Problems: (1) Acute respiratory failure (2) COVID-19 Admission Dx ACUTE HYPOXIC RESPIRATORY FAILURE COVID 19 PULMONARY INFECTION HX OF RENAL CELL CARCINOMA WITH NEPHRECTOMY HYPONATREMIA ACUTE ON CHRONIC RENAL FAILURE (STAGE 4) CHRONIC MYELOGENOUS LEUKEMIA ACUTELY ELEVATED LIVER ENZYMES DUE TO SHOCK MORBID OBESITY Clinical Quality Measures Admission Status Admission Dx ACUTE HYPOXIC RESPIRATORY FAILURE COVID 19 PULMONARY INFECTION HX OF RENAL CELL CARCINOMA WITH NEPHRECTOMY HYPONATREMIA ACUTE ON CHRONIC RENAL FAILURE (STAGE 4) CHRONIC MYELOGENOUS LEUKEMIA ACUTELY ELEVATED LIVER ENZYMES DUE TO SHOCK MORBID OBESITY SAMAN RAI MD Jan 02, 2021 08:46
--- NOTE | 2021-01-02 08:54 | Diagnostic Imaging Report ---
INDICATION: Pneumonia. Time of exam: 3:49 AM Correlation is made with prior chest from one day earlier. Heart size is stable. Right IJ line has tip overlying the SVC. Bilateral perihilar and bibasilar infiltrates persist. These may be slightly improved on today's study compared with yesterday. Upper lung [place] are clear. There is no pneumothorax. IMPRESSION: Bilateral pulmonary infiltrates show partial clearing when compared with examination one day earlier. Dictated by: Dictated on workstation # [id number]
[2021-01-02] MEDS: FAMOTIDINE 20MG/2ML IV (PEPCID) IVP SCH (09:09)
[2021-01-02] MEDS: PANTOPRAZOLE 40 MG (PROTONIX) VIAL IV SCH (09:09)
[2021-01-02] MEDS: MICONAZOLE 2% POWDER (DESENEX AF) 90 GM TOP SCH ×2 (09:18→19:36)
[2021-01-02] MEDS: LACTATED RINGERS 1,000 ML IV SCH ×2 (09:43→20:16)
--- NOTE | 2021-01-02 10:06 | Physical Therapy Progress Note ---
Therapy Progress Note Patient currently on vapotherm. Staff aware of PT requirements of new orders to initiate treatment. Patient currently on Hold. STUART GREEN PT Jan 02, 2021 10:06
--- NOTE | 2021-01-02 10:22 | Tele-ICU Progress Note ---
Subjective Date Seen by a Provider: Jan 02, 2021 Time Seen by a Provider: 10:22 Sepsis Event Evaluation Height, Weight, BMI Height: '" Weight: lbs. oz. kg; 41.18 BMI Method:Stated Exam Exam Patient acknowledged, consented, and participated in this virtual visit which was conducted using real time audio/video Vital Signs Date Time Temp Pulse Resp B/P (MAP) Pulse Ox O2 Delivery O2 Flow Rate FiO2 01/02/21 09:39 93 Vapotherm 40.00 90.00 01/02/21 09:00 100 Vapotherm 40.00 100.00 01/02/21 09:00 100 Vapotherm 40.00 100 01/02/21 08:04 35.0 01/02/21 07:00 50 01/02/21 06:37 52 29 98 50.00 01/02/21 06:00 48 24 97 NIV Bilevel 50.00 01/02/21 05:33 43 138/88 01/02/21 05:00 45 25 95 NIV Bilevel 50.00 01/02/21 04:00 NIV Bilevel 50 01/02/21 04:00 43 26 94 NIV Bilevel 50.00 01/02/21 03:00 42 27 94 NIV Bilevel 50.00 01/02/21 02:22 35.8 01/02/21 02:20 52 30 94 50.00 01/02/21 02:00 44 25 96 NIV Bilevel 50.00 01/02/21 01:00 48 25 95 NIV Bilevel 50.00 01/02/21 01:00 50 01/02/21 00:00 68 29 92 NIV Bilevel 50.00 01/01/21 23:59 NIV Bilevel 50 01/01/21 23:33 48 138/88 01/01/21 23:00 48 26 95 NIV Bilevel 50.00 01/01/21 22:33 48 30 94 50.00 01/01/21 22:00 48 32 95 NIV Bilevel 50.00 01/01/21 21:00 49 34 93 NIV Bilevel 50.00 01/01/21 20:50 NIV Bilevel 50.00 01/01/21 20:12 NIV Bilevel 100.00 01/01/21 20:00 Vapotherm 30.00 80 01/01/21 20:00 80 98 Vapotherm 30.00 80.00 01/01/21 19:53 35.4 01/01/21 19:48 96 Vapotherm 30.00 80 01/01/21 19:00 60 01/01/21 19:00 62 95 Vapotherm 30.00 80.00 01/01/21 18:00 68 61 95 Vapotherm 30.00 80.00 01/01/21 17:00 79 30 94 Vapotherm 30.00 80.00 01/01/21 16:33 Vapotherm 40.00 100 01/01/21 16:00 72 46 95 Vapotherm 30.00 80.00 01/01/21 16:00 Vapotherm 30.00 80 01/01/21 15:58 Vapotherm 30.00 80.00 01/01/21 15:50 36.6 01/01/21 15:45 73 175/82 01/01/21 15:25 Vapotherm 40.00 100.00 01/01/21 15:00 68 31 94 70.00 01/01/21 15:00 67 31 94 NIV Bilevel 50.00 01/01/21 14:00 67 32 95 NIV Bilevel 50.00 01/01/21 13:00 69 26 96 NIV Bilevel 50.00 01/01/21 12:44 74 01/01/21 12:00 NIV Bilevel 60 01/01/21 12:00 67 33 95 NIV Bilevel 50.00 01/01/21 11:16 69 27 97 70.00 01/01/21 11:00 69 28 96 NIV Bilevel 50.00 I & O 01/02/21 07:00 Intake Total 0 ml Output Total 1825 ml Balance -1825 ml Height & Weight Height: '" Weight: lbs. oz. kg; 41.18 BMI Method:Stated General Appearance: No Apparent Distress, Chronically ill, Moderate Distress, Obese HEENT: PERRL/EOMI; No Scleral Icterus (L), No Scleral Icterus (R); Other (dry mucous membranes) Neck: Normal Inspection, Supple Respiratory: No Accessory Muscle Use, Crackles, Decreased Breath Sounds Cardiovascular: Regular Rate, Rhythm, No Murmur Capillary Refill: Less Than 3 Seconds Gastrointestinal: non tender, soft, other (decreased BS) Extremity: No Calf Tenderness, No Pedal Edema, Pedal Edema Neurologic/Psychiatric: Alert, Oriented x3 (slowed speech), Normal Mood/Affect Skin: Normal Color, Warm/Dry Results Lab Laboratory Tests 01/01/21 03:10 01/02/21 01:30 Assessment/Plan Assessment/Plan (Tele-ICU Physician , Progress Note ) Available chart/ vitals / labs / Images reviewed Video assessment done using teleICU camera, rest of exam as per RN Discussed with RN Events overnight : refusing to prone Afebrile hemodynamically stable, no pressors, I/O = neg 700 Drips: off precedex , As per RN exam : AAo , occasionaly confused , cracles are less, asking for food Consultants: Hospital course: 12/29- admitte dwith COVID PNA on remdesivir and decadraon, d dimer 3, on once a day Lovenox 12/31 vapotherm 40 lpm FiO2 100% - RR 20 - 40 12/31- intubated 01/01 - self-extubated , spont RR 36, BiPAP 22/01 FiO2 70% 01/02 - can not tolerate BIPAP , started precedex - > back to vapotherm 40 lpm FiO2 90% CXR 12/31 - worsening 01/02 - ? littele better ECHO 12/31 - EF 70% , RVSP 45 mmHg A/P Avute resp failure , CCovid PNA vapotherm 40 lpm FiO2 90% - keep neg balance COVID PNA - remdesiivir - 12/30 - remdesivir offwith ? Cr - decadron 6 iv - refusing proniong - Heparin sQ Leukocytosis - 12/29 - coag neg staph 1/2, urine MRSA swab neg , sputum 12/31 - ususal viviana Hyponatremia - admitted 118 12/29 =>12/31 to 127 - 01/02 - mormalized - cont to monitor ELZA - admit Cr 3, slow improving to 2.3 - consider diuresis id + volume status Transaminases -LFT's are elevated, need to be monitored- improving - off remdesivir , probably due to COVID - follow Lines : R IJ 12/29 (Central Line Necessity Reviewed) Shaw: RN feels needed due to drop in SpO2 when gets out of bed OG: Nutrition: po Analgesia: na Anxiety/ delirium na VTE Prophylaxis: hwp 5K q8 Stress Ulcer Prophylaxis: pepcid ( on steroids Glycemic Control: + Plans in collaboration with bedside consultants and IM MDs. Discussed with RN to reach out if any questions or concerns A total of 31 minutes of critical care time was devoted to this patient today, required to treat and/or prevent further deterioration of critical care condition ( as above ) . ALENA CRAVEN MD Jan 02, 2021 10:22
[2021-01-02] MEDS ORDERED: NS IV 1000 ML 1,000 ML IV SCH (10:30)
[2021-01-02 14:42] VITALS: BP 138/88
[2021-01-02] MEDS ORDERED: hydrALAZINE (APESOLINE) 20 MG/ML VIAL IV ONE (20:30)
[2021-01-02] MEDS ORDERED: hydrALAZINE (APESOLINE) 20 MG/ML VIAL ONE (20:38)
[2021-01-02 22:20] VITALS: BP 138/88
[2021-01-02] MEDS: RT-ALBUTEROL INHALER HFA (VENTOLIN HFA) 18 GM IH PRN (22:22)
[2021-01-02] MEDS ORDERED: LORazepam INJ 2 MG/ML (ATIVAN) VIAL ONE (22:27)
[2021-01-02] MEDS: LORazepam INJ 2 MG/ML (ATIVAN) VIAL IVP PRN ×2 (22:29→22:45)
[2021-01-03] MEDS: RT-ALBUTEROL INHALER HFA (VENTOLIN HFA) 18 GM IH SCH ×6 (02:22→22:53)
[2021-01-03 03:38] LABS: BASOPHILS % (AUTO) 0 % (0-10); EOSINOPHILS % (AUTO) 0 % (0-10); HEMATOCRIT 32 % (35-52); HEMOGLOBIN 11.3 g/dL (11.5-16.0); LYMPHOCYTES # (AUTO) 0.6 10^3/uL (1.0-4.0); LYMPHOCYTES % (AUTO) 5 % (12-44); MEAN CORPUSCULAR HEMOGLOBIN 30 pg (25-34); MEAN CORPUSCULAR HGB CONC 35 g/dL (32-36); MEAN CORPUSCULAR VOLUME 86 fL (80-99); MEAN PLATELET VOLUME 10.1 fL (9.0-12.2); MONOCYTES # (AUTO) 0.3 10^3/uL (0.0-1.0); MONOCYTES % (AUTO) 2 % (0-12); NEUTROPHILS # (AUTO) 10.9 10^3/uL (1.8-7.8); NEUTROPHILS % (AUTO) 86 % (42-75); PLATELET COUNT 242 10^3/uL (130-400); WHITE BLOOD COUNT 12.7 10^3/uL (4.3-11.0)
[2021-01-03 03:40] LABS: ABG BASE EXCESS -1.8 MMOL/L (-2.5-2.5); ABG OXYGEN SATURATION 98 % (94-100); ABG PCO2 32 MMHG (35-45); ABG PH 7.44 (7.37-7.43); ABG PO2 105 MMHG (79-93); ABG TCO2 22.6 MMOL/L (21.0-31.0)
[2021-01-03] MEDS: guaiFENesin SYRUP 100 MG/5 ML 10 ML (ROBITUSSIN SF) PO SCH ×6 (03:45→23:09)
[2021-01-03 04:10] LABS: ALBUMIN 2.3 GM/DL (3.2-4.5)
[2021-01-03 04:11] LABS: POTASSIUM 4.1 MMOL/L (3.6-5.0)
[2021-01-03 04:12] LABS: CALCIUM 7.4 MG/DL (8.5-10.1)
[2021-01-03 04:13] LABS: TOTAL PROTEIN 5.1 GM/DL (6.4-8.2)
[2021-01-03 04:15] LABS: BILIRUBIN,TOTAL 0.6 MG/DL (0.1-1.0)
[2021-01-03 04:16] LABS: PHOSPHORUS 2.1 MG/DL (2.3-4.7)
[2021-01-03 04:17] LABS: CREATININE SERUM 2.06 MG/DL (0.60-1.30)
[2021-01-03 04:20] LABS: MAGNESIUM 1.9 MG/DL (1.6-2.4)
[2021-01-03 04:24] LABS: ALLENS TEST ARTLINE
[2021-01-03 04:25] LABS: INSPIRED O2 90%; PATIENT TEMP 37.3; VENTILATOR NO
[2021-01-03] MEDS: MAGNESIUM 1 GM/100 ML IVPB 100 ML IV SCH (05:05)
[2021-01-03] MEDS: KCL 20 MEQ TAB (K-DUR) PO SCH (05:05)
[2021-01-03] MEDS: POTASSIUM CL 10MEQ/50ML IVPB 50 ML IV SCH (05:05)
[2021-01-03] MEDS: LACTATED RINGERS 1,000 ML IV SCH ×3 (06:03→19:47)
[2021-01-03] MEDS: DexMEDEtomidine 250 ML DRIP 250 ML IV SCH ×3 (06:04→20:20)
[2021-01-03] MEDS: RT-ALBUTEROL INHALER HFA (VENTOLIN HFA) 18 GM IH PRN ×5 (06:29→18:44)
--- NOTE | 2021-01-03 06:50 | Diagnostic Imaging Report ---
EXAMINATION: Chest 1 view HISTORY: COVID COMPARISON: 01/02/2021 FINDINGS: Heart borders are obscured. A right-sided IJ central line is unchanged. Increasing patchy interstitial and airspace opacities throughout both lungs greatest within the mid and lower lungs. There is blunting of the costophrenic angles. No pneumothorax. The osseous structures are intact. IMPRESSION: 1. Increasing opacities throughout both lungs concerning for worsening pneumonia. May be bilateral pleural effusions. Dictated by: Dictated on workstation # [id number]
--- NOTE | 2021-01-03 08:20 | Physical Therapy Progress Note ---
Therapy Progress Note Patient continues to have worsening pulmonary issues. PT will continue to be on Hold to allow patient to improve medical status. STUART GREEN PT Jan 03, 2021 08:20
[2021-01-03] MEDS: PANTOPRAZOLE 40 MG (PROTONIX) VIAL IV SCH (09:15)
[2021-01-03] MEDS: LORazepam INJ 2 MG/ML (ATIVAN) VIAL IVP PRN (09:17)
[2021-01-03] MEDS: MICONAZOLE 2% POWDER (DESENEX AF) 90 GM TOP SCH ×2 (09:37→19:47)
[2021-01-03] MEDS: FAMOTIDINE 20MG/2ML IV (PEPCID) IVP SCH (09:39)
[2021-01-03 10:20] VITALS: BP 157/83
--- NOTE | 2021-01-03 10:36 | Anesthesia-Procedure Note ---
Procedures/Interventions Procedure Start/Stop/Diagnosis Date of Procedure: Jan 03, 2021 Start Time: 10:14 Preprocedural Diagnosis: Covid-Resp Failure Stop Time: 10:25 Intubation RSI: Yes 100% pre-Ox, [id number]: Yes Intubation Method: orotracheal Videoscope used: Yes Grade View: 1 Medications: Propofol (100), Rocuronium (50), Succinylcholine (100) Mask Ventilation: positive Positive End Tide CO2: Yes Breath Sounds after Intubation: bilateral-equal ETT Securred @ (cm): 22 Intubated with ease: Yes Intubation Complications: no complications, O2 saturation decreased (72) Post Procedure Intubated with ease. Pt did desat to 72%. No complications noted Care turned over to: SUPERVISOR DYER GISELLA DUDLEY CRNA Jan 03, 2021 10:36
--- NOTE | 2021-01-03 11:12 | Diagnostic Imaging Report ---
INDICATION: Intubated COMPARISON: 01/03/2021 3:46 a.m. FINDINGS: Single view chest demonstrates stable support devices. Bilateral pulmonary infiltrates are unchanged. Pneumomediastinum is suspected. There is no pneumothorax. Small bilateral pleural effusions are stable. IMPRESSION: 1. Stable support devices. ET tube is in the mid to distal trachea. 2. Unchanged bilateral pulmonary infiltrates. 3. Suspect pneumomediastinum. Dictated by: Dictated on workstation # [id number]
[2021-01-03 11:37] VITALS: BP 158/90
[2021-01-03 11:51] LABS: ABG OXYGEN SATURATION 94 % (94-100); ABG PCO2 34 MMHG (35-45); ABG PH 7.42 (7.37-7.43); ABG PO2 65 MMHG (79-93); ABG TCO2 23.3 MMOL/L (21.0-31.0)
[2021-01-03 11:53] LABS: INSPIRED O2 80%; PATIENT TEMP 35.3; VENTILATOR NO
--- NOTE | 2021-01-03 12:52 | Tele-ICU Progress Note ---
Subjective Date Seen by a Provider: Jan 03, 2021 Time Seen by a Provider: 11:30 Subjective/Events-last exam She is a 70-year-old female with morbid obesity with a BMI of 42.8 kg/m admitted with Covid pneumonia and was on Vapotherm and subsequently a BiPAP ventilation which she did not tolerate and continues to be agitated and hypoxic. Subsequently needed intubation. Currently the vent settings are 500/100%/PEEP of 12/respiratory rate 16. Blood pressure so far stable and oxygen saturation are improving. Prior to intubation she refused to proning. CBC normal BUN 50 creatinine 2.06. Reviewed with the bedside RN and video visit made Review of Systems HEENT: Dysphasia, Other (intubated , sedated on vent.) Sepsis Event Evaluation Height, Weight, BMI Height: '" Weight: lbs. oz. kg; 41.18 BMI Method:Stated Exam Exam Patient acknowledged, consented, and participated in this virtual visit which was conducted using real time audio/video Vital Signs Date Time Temp Pulse Resp B/P (MAP) Pulse Ox O2 Delivery O2 Flow Rate FiO2 01/03/21 12:29 63 01/03/21 12:00 61 16 141/78 (99) 90 Mechanical Ventilator 80.00 01/03/21 11:46 Mechanical Ventilator 80.00 01/03/21 11:37 64 17 93 80 01/03/21 11:00 56 16 157/83 (107) 97 Mechanical Ventilator 100.00 01/03/21 10:20 73 16 97 100 01/03/21 10:00 52 35 129/93 (105) 95 NIV Bilevel 100.00 01/03/21 09:00 37.3 66 27 147/91 (109) 88 NIV Bilevel 100.00 01/03/21 08:00 85 186/66 (106) 89 Vapotherm 40.00 95.00 01/03/21 07:00 56 01/03/21 07:00 59 182/65 (104) 87 Vapotherm 40.00 95.00 01/03/21 06:30 91 Vapotherm 40.00 95 01/03/21 06:25 Vapotherm 40.00 95.00 01/03/21 06:04 69 138/65 01/03/21 06:00 60 40 146/71 (96) 90 Vapotherm 40.00 100.00 01/03/21 05:52 Vapotherm 40.00 100.00 01/03/21 05:00 61 41 149/73 (98) 93 Vapotherm 30.00 90.00 01/03/21 04:05 Vapotherm 30.00 90 01/03/21 04:00 59 36 148/70 (96) 94 Vapotherm 30.00 90.00 01/03/21 03:22 37.3 Vapotherm 30.00 90.00 01/03/21 03:00 62 38 164/83 (110) 94 Vapotherm 40.00 100.00 01/03/21 02:32 92 Vapotherm 40.00 100 01/03/21 02:00 60 36 164/86 (112) 96 Vapotherm 40.00 100.00 01/03/21 01:53 Vapotherm 40.00 100.00 01/03/21 01:00 70 01/03/21 01:00 65 35 162/79 (106) 96 NIV Bilevel 70.00 01/03/21 00:00 55 37 166/82 (110) 95 NIV Bilevel 70.00 01/02/21 23:55 NIV Bilevel 70 01/02/21 23:50 37.3 NIV Bilevel 70.00 01/02/21 23:00 66 38 146/80 (102) 94 NIV Bilevel 70.00 01/02/21 22:20 59 48 92 70.00 01/02/21 22:06 82 179/85 01/02/21 22:00 89 39 159/79 (105) 96 NIV Bilevel 70.00 01/02/21 21:00 82 39 154/96 (115) 96 NIV Bilevel 70.00 01/02/21 20:15 192/90 (124) Arterial Line 01/02/21 20:14 NIV Bilevel 70.00 01/02/21 20:00 83 37 170/81 (110) 97 Vapotherm 40.00 100.00 01/02/21 19:25 Vapotherm 40.00 100 01/02/21 19:00 70 01/02/21 19:00 67 37 152/108 (123) 93 Vapotherm 40.00 100.00 01/02/21 19:00 37.6 77 42 197/62 (107) 92 Vapotherm 40.00 100.00 01/02/21 18:35 91 Vapotherm 40.00 100 01/02/21 18:07 Vapotherm 40.00 100.00 01/02/21 18:00 72 23 94 NIV Bilevel 70.00 01/02/21 17:08 NIV Bilevel 70.00 01/02/21 17:04 37.2 01/02/21 17:00 76 93 NIV Bilevel 100.00 01/02/21 16:00 67 17 96 NIV Bilevel 100.00 01/02/21 16:00 98 NIV Bilevel 100 01/02/21 15:00 62 38 99 NIV Bilevel 100.00 01/02/21 14:42 35.0 43 87 01/02/21 14:06 NIV Bilevel 100.00 01/02/21 14:00 74 50 85 Vapotherm 40.00 90.00 01/02/21 13:54 87 Vapotherm 40.00 100 01/02/21 13:00 50 01/02/21 13:00 49 91 Vapotherm 40.00 90.00 I & O 01/03/21 07:00 Intake Total 4050 ml Output Total 2155 ml Balance 1895 ml Height & Weight Height: '" Weight: lbs. oz. kg; 41.18 BMI Method:Stated General Appearance: No Apparent Distress, Chronically ill, Moderate Distress, Obese HEENT: PERRL/EOMI; No Scleral Icterus (L), No Scleral Icterus (R); Other (dry mucous membranes) Neck: Full Range of Motion, Normal Inspection, Non Tender, Supple, Carotid Bruit, JVD, Limited Range of Motion, Lymphadenopathy (L), Lymphadenopathy (R), Tender Lateral, Tender Midline, Thyromegaly, Other Respiratory: No Accessory Muscle Use, Crackles, Decreased Breath Sounds, Other (intubated, on vent. sedated) Cardiovascular: Regular Rate, Rhythm, No Murmur Capillary Refill: Less Than 3 Seconds Gastrointestinal: non tender, soft, other (decreased BS) Extremity: No Calf Tenderness, No Pedal Edema, Pedal Edema Neurologic/Psychiatric: Alert, Oriented x3 (slowed speech), Normal Mood/Affect Skin: Normal Color, Warm/Dry Other comments the above review are per attending Results Lab Laboratory Tests 01/02/21 01:30 01/03/21 03:25 Meds reviewed Radiology cxr reviewed Assessment/Plan Assessment/Plan 1. Covid19 pneumonia 2. Acute hypoxic respiratory failure 3. Elevated BUN and creatinineprobably due to Covid pneumonia and a rare possibility due to remdesivir which has been discontinued 4. Elevated liver enzymes improving off the remdesivir. 5. Morbid obesity 6. Hyperglycemia probably due to steroids and she is on a sliding scale coverage Recommendations 1. Continue mechanical ventilation with a tidal volume of 500, FiO2 100%, PEEP 12, respiratory rate of 16 and monitor blood gases 2. There is a suspected pneumomediastinum for which will follow up with serial x-rays 3. Continue monitor BUN/creatinine, liver enzymes. 4. GI prophylaxis with Protonix 5. DVT prophylaxis with subcutaneous heparin 6. Hydrate patient cautiously 7. Sedation per protocol 8. Reviewed with the RN. Critical Care: Ventilator Management Time spent with patient (mins): 45 Diagnosis/Problems Diagnosis/Problems (1) Abnormal liver function (2) Acute kidney injury (3) Pneumonia due to COVID-19 virus Status: Acute (4) Acute respiratory failure (5) Abnormal glucose CECILIA FOWLER MD Jan 03, 2021 12:52
--- NOTE | 2021-01-03 13:22 | Progress Note ---
Subjective Subjective Date Seen by Provider: Jan 03, 2021 Time Seen by Provider: 08:30 LOUIE IS A 70 Y/O FEMALE WHO IS A NEW PATIENT TO MY PRACTICE OF A FEW MONTHS AGO. SHE HAS HX OF CML, RENAL CARCINOMA STATUS POST NEPHRECTOMY THIS MORNING ON MY EVALUATION OF LOUIE, SHE WAS CONFUSED, CLOSE TO OBTUNDED, RESPIRATIONS AT 45+ AND OXYGEN IN THE MID 80'S ON VAPOTHERM AT 40LPM AND 95%. THE EICU HAD RECOMMENDED INTUBATION OF THE PATIENT LAST NIGHT, BUT FAMILY WANTED TO WAIT TO SEE IF SHE COULD CALM DOWN AND AVOID INTUBATION. Review of Systems General: Fatigue, Malaise HEENT: Other Pulmonary: Dyspnea, Cough Cardiovascular: No: Chest Pain Gastrointestinal: No: Nausea, Vomiting Genitourinary: Other (BROWN IN PLACE) Neurological: Weakness, Confusion All Other Systems Reviewed All Other Systems Reviewed: Yes Objective Exam Vital Signs Vital Signs - First Documented 12/29/20 12/29/20 12/29/20 12/30/20 08:22 09:35 12:30 08:37 Temp 36.8 Pulse 82 Resp 35 B/P (MAP) 134/105 (115) Pulse Ox 98 O2 Delivery Non Rebreather O2 Flow Rate 4.00 FiO2 100 Capillary Refill : Less Than 3 Seconds General Appearance: Chronically ill, Obese, Severe Distress (WITH RESPIRATORY RATE IN THE 40'S) HEENT: PERRL/EOMI; No Scleral Icterus (L), No Scleral Icterus (R); Other (dry mucous membranes) Neck: Normal Inspection, Supple Respiratory: No Respiratory Distress, Accessory Muscle Use, Crackles, Decreased Breath Sounds Cardiovascular: Regular Rate, Rhythm, No Murmur Gastrointestinal: Normal Bowel Sounds, Non Tender, Soft Back: Normal Inspection, No CVA Tenderness, No Vertebral Tenderness Extremity: No Calf Tenderness, No Pedal Edema, Pedal Edema Neurologic/Psychiatric: Disoriented Skin: Cool (ON FEET), Mottled (ON HEELS) Results Lab Laboratory Tests 01/03/21 03:20: Blood Gas Puncture Site RGHT RAD, Blood Gas Patient Temperature 37.3, Arterial Blood pH 7.44H, Arterial Blood Partial Pressure CO2 32L, Arterial Blood Partial Pressure O2 105H, Arterial Blood HCO3 22L, Arterial Blood Total CO2 22.6, Arterial Blood Oxygen Saturation 98, Arterial Blood Base Excess -1.8, Nathan Test ARTLINE, Blood Gas Ventilator Setting NO, Blood Gas Inspired Oxygen 90% 01/03/21 03:25: White Blood Count 12.7H, Red Blood Count 3.73L, Hemoglobin 11.3L, Hematocrit 32L , Mean Corpuscular Volume 86, Mean Corpuscular Hemoglobin 30, Mean Corpuscular Hemoglobin Concent 35, Red Cell Distribution Width 15.6H, Platelet Count 242, Mean Platelet Volume 10.1, Immature Granulocyte % (Auto) 7, Neutrophils (%) (Auto) 86H, Lymphocytes (%) (Auto) 5L, Monocytes (%) (Auto) 2, Eosinophils (%) (Auto) 0, Basophils (%) (Auto) 0, Neutrophils # (Auto) 10.9H, Lymphocytes # (Auto) 0.6L, Monocytes # (Auto) 0.3, Eosinophils # (Auto) 0.0, Basophils # (Auto) 0.0, Immature Granulocyte # (Auto) 0.9H, Sodium Level 137, Potassium Level 4.1, Chloride Level 105, Carbon Dioxide Level 21, Anion Gap 11, Blood Urea Nitrogen 50H, Creatinine 2.06H, Estimat Glomerular Filtration Rate 24, BUN/Creatinine Ratio 24, Glucose Level 151H, Calcium Level 7.4L, Corrected Calcium 8.8, Phosphorus Level 2.1L, Magnesium Level 1.9, Total Bilirubin 0.6, Aspartate Amino Transf (AST/SGOT) 50H, Alanine Aminotransferase (ALT/SGPT) 47, A lkaline Phosphatase 74, Total Protein 5.1L, Albumin 2.3L, Triglycerides Level 181H 01/03/21 11:45: Blood Gas Puncture Site NA, Blood Gas Patient Temperature 35.3, Arterial Blood pH 7.42, Arterial Blood Partial Pressure CO2 34L, Arterial Blood Partial Pressure O2 65L, Arterial Blood HCO3 22L, Arterial Blood Total CO2 23.3, Arterial Blood Oxygen Saturation 94, Arterial Blood Base Excess -2.0, Nathan Test NA, Blood Gas Ventilator Setting NO, Blood Gas Inspired Oxygen 80% Microbiology 12/31/20 Gram Stain - Final, Complete 12/31/20 Sputum Culture - Final, Complete Moraxella catarrhalis 12/29/20 Urine Culture - Final, Complete NO GROWTH 12/29/20 Blood Culture - Preliminary, Resulted No growth Assessment/Plan Assessment/Plan Admission Dx ACUTE HYPOXIC RESPIRATORY FAILURE COVID 19 PULMONARY INFECTION HX OF RENAL CELL CARCINOMA WITH NEPHRECTOMY HYPONATREMIA ACUTE ON CHRONIC RENAL FAILURE (STAGE 4) CHRONIC MYELOGENOUS LEUKEMIA ACUTELY ELEVATED LIVER ENZYMES DUE TO SHOCK MORBID OBESITY Assessment and Plan ACUTE HYPOXIC RESPIRATORY FAILURE COVID 19 PULMONARY INFECTION HX OF RENAL CELL CARCINOMA WITH NEPHRECTOMY HYPONATREMIA ACUTE ON CHRONIC RENAL FAILURE (STAGE 4) CHRONIC MYELOGENOUS LEUKEMIA ACUTELY ELEVATED LIVER ENZYMES DUE TO SHOCK MORBID OBESITY ACUTE HYPOXIC RESPIRATORY FAILURE DUE TO COVID 19 PULMONARY INFECTION WITH PNEUMONIA - PT ON DECADRON, RECEIVED CONVALESCENT PLASMA - CANNOT BE ON REMDESIVIR DUE TO HER LIVER FUNCTION AND RENAL FUNCTION. - E-ICU ON CONSULT FOR THIS PATIENT WITH PULMONARY CRITICAL CARE PHYSICIANS ROUNDING ON THE PATIENT VIRTUALLY. HX OF RENAL CELL CARCINOMA WITH NEPHRECTOMY AND ACUTE ON CHRONIC RENAL FAILURE (STAGE 4) - SUPPORTIVE CARE ONLY AT THIS TIME, RENAL ADJUSTMENT OF MEDICATIONS, IV FLUIDS. HYPONATREMIA - REPLENISHED WITH IV FLUIDS. - MONITOR LABS, REPLACE NEEDED. CHRONIC MYELOGENOUS LEUKEMIA - HOLDING GLEEVAC AT THIS TIME. ACUTELY ELEVATED LIVER ENZYMES DUE TO SHOCK AND COVID INFECTION - FLUIDS, SUPPORTIVE CARE, MONITOR LABS CLOSELY. - CANNOT GIVE REMDESIVIR DUE TO LIVER FAILURE MORBID OBESITY - WILL NEED TO BE ASSISTED WITH MOVEMENTS/PRONING, ETC. DVT PROPHYLAXIS WITH LOVENOX I HAVE DISCUSSED HER CASE WITH HER NIECE BRITTANY TODAY - WE WILL PROCEED WITH INTUBATION TODAY TO GIVE THE PATIENT RESPIRATORY REST. SHE UNDERSTANDS THE POSSIBLE RAMIFICATIONS OF THE INTUBATION PROCESS. WE WILL PROCEED TODAY AND MONITOR SYMPTOMS AND MAKE A PLAN FOR FUTURE EXTUBATION. Problems: (1) Abnormal liver function (2) Acute kidney injury (3) Pneumonia due to COVID-19 virus (4) Acute respiratory failure (5) Abnormal glucose Admission Dx ACUTE HYPOXIC RESPIRATORY FAILURE COVID 19 PULMONARY INFECTION HX OF RENAL CELL CARCINOMA WITH NEPHRECTOMY HYPONATREMIA ACUTE ON CHRONIC RENAL FAILURE (STAGE 4) CHRONIC MYELOGENOUS LEUKEMIA ACUTELY ELEVATED LIVER ENZYMES DUE TO SHOCK MORBID OBESITY Clinical Quality Measures Admission Status Admission Dx ACUTE HYPOXIC RESPIRATORY FAILURE COVID 19 PULMONARY INFECTION HX OF RENAL CELL CARCINOMA WITH NEPHRECTOMY HYPONATREMIA ACUTE ON CHRONIC RENAL FAILURE (STAGE 4) CHRONIC MYELOGENOUS LEUKEMIA ACUTELY ELEVATED LIVER ENZYMES DUE TO SHOCK MORBID OBESITY SAMAN RAI MD Jan 03, 2021 13:22
[2021-01-03] MEDS: AZITHROMYCIN INJECTION 500 MG in NS (IVPB) 250 ML IV SCH (14:17)
[2021-01-03] MEDS: PROPOFOL DRIP (ICU) 100 ML IV SCH ×3 (14:18→23:09)
--- NOTE | 2021-01-03 14:28 | Diagnostic Imaging Report ---
INDICATION: Follow-up pneumomediastinum. Time of exam 2:20 p.m. Correlation is made with prior chest from earlier same day. ET tube has tip above the saqib. NG tube passes below the diaphragm. Right-sided line has tip overlying the SVC. Bilateral perihilar and bibasilar infiltrates persist. Questionable pneumomediastinum does appear to be improved. No pneumothorax is identified. IMPRESSION: Continued bilateral pulmonary infiltrates. Lucency about the mediastinum does appear to be slightly improved when compared with earlier today. Dictated by: Dictated on workstation # [id number]
[2021-01-03] MEDS ORDERED: SUCCINYLCHOLINE INJ 100 MG/5 ML SYR/VIAL INJ ONE (14:32)
[2021-01-03] MEDS ORDERED: ROCURONIUM 10 MG/ML 5 ML SYRINGE IV ONE (14:32)
[2021-01-03 14:43] VITALS: BP 140/74
[2021-01-03 18:44] VITALS: BP 153/77
[2021-01-03 22:53] VITALS: BP 157/81
[2021-01-04] VITALS (7 sets, daily range): BP systolic 125–151; BP diastolic 62–84
[2021-01-04] MEDS: RT-ALBUTEROL INHALER HFA (VENTOLIN HFA) 18 GM IH SCH ×6 (02:13→22:25)
[2021-01-04] MEDS: DexMEDEtomidine 250 ML DRIP 250 ML IV SCH ×4 (02:19→19:55)
[2021-01-04] MEDS: PROPOFOL DRIP (ICU) 100 ML IV SCH ×6 (03:26→19:56)
[2021-01-04] MEDS: guaiFENesin SYRUP 100 MG/5 ML 10 ML (ROBITUSSIN SF) PO SCH ×6 (03:29→23:36)
[2021-01-04 04:59] LABS: BASOPHILS # (AUTO) 0.1 10^3/uL (0.0-0.1); BASOPHILS % (AUTO) 0 % (0-10); EOSINOPHILS % (AUTO) 0 % (0-10); HEMATOCRIT 31 % (35-52); HEMOGLOBIN 10.8 g/dL (11.5-16.0); LYMPHOCYTES # (AUTO) 0.4 10^3/uL (1.0-4.0); LYMPHOCYTES % (AUTO) 2 % (12-44); MEAN CORPUSCULAR HEMOGLOBIN 30 pg (25-34); MEAN CORPUSCULAR HGB CONC 35 g/dL (32-36); MEAN CORPUSCULAR VOLUME 88 fL (80-99); MEAN PLATELET VOLUME 10.5 fL (9.0-12.2); MONOCYTES # (AUTO) 0.2 10^3/uL (0.0-1.0); MONOCYTES % (AUTO) 1 % (0-12); NEUTROPHILS # (AUTO) 14.8 10^3/uL (1.8-7.8); NEUTROPHILS % (AUTO) 89 % (42-75); PLATELET COUNT 249 10^3/uL (130-400); WHITE BLOOD COUNT 16.6 10^3/uL (4.3-11.0)
[2021-01-04 05:00] LABS: ABG BASE EXCESS -3.9 MMOL/L (-2.5-2.5); ABG OXYGEN SATURATION 94 % (94-100); ABG PCO2 28 MMHG (35-45); ABG PH 7.45 (7.37-7.43); ABG PO2 65 MMHG (79-93); ABG TCO2 20.3 MMOL/L (21.0-31.0)
[2021-01-04 05:14] LABS: ALLENS TEST ARTLINE
[2021-01-04 05:15] LABS: INSPIRED O2 60%; PATIENT TEMP 36.9; VENTILATOR YES
[2021-01-04 05:30] LABS: ALBUMIN 2.3 GM/DL (3.2-4.5)
[2021-01-04 05:32] LABS: CALCIUM 7.3 MG/DL (8.5-10.1)
[2021-01-04 05:33] LABS: TOTAL PROTEIN 5.3 GM/DL (6.4-8.2)
[2021-01-04 05:35] LABS: BILIRUBIN,TOTAL 0.7 MG/DL (0.1-1.0)
[2021-01-04 05:36] LABS: PHOSPHORUS 2.4 MG/DL (2.3-4.7)
[2021-01-04 05:37] LABS: CREATININE SERUM 1.92 MG/DL (0.60-1.30)
[2021-01-04] MEDS: KCL 20 MEQ TAB (K-DUR) PO SCH (05:39)
[2021-01-04] MEDS: POTASSIUM CL 10MEQ/50ML IVPB 50 ML IV SCH (05:39)
[2021-01-04] MEDS: MAGNESIUM 1 GM/100 ML IVPB 100 ML IV SCH ×5 (05:39→13:45)
[2021-01-04 05:40] LABS: MAGNESIUM 1.8 MG/DL (1.6-2.4)
[2021-01-04] MEDS: LACTATED RINGERS 1,000 ML IV SCH ×2 (05:53→16:42)
[2021-01-04 06:20] LABS: LYMPHOCYTES % (MANUAL) 4 %; MONOCYTES % (MANUAL) 3 %; NEUTROPHILS % (MANUAL) 89 %; RBC MORPH NORMAL
[2021-01-04 06:23] LABS: METAMYELOCYTES % 1 %; MYELOCYTES % 3 %
--- NOTE | 2021-01-04 07:19 | Physical Therapy Progress Note ---
Therapy Progress Note Patient intubated and sedated this a.m. PT will continue to monitor patient status and initiate treatment when patient is able to actively participate with skilled therapy. STUART GREEN PT Jan 04, 2021 07:19
[2021-01-04] MEDS: PANTOPRAZOLE 40 MG (PROTONIX) VIAL IV SCH (08:03)
[2021-01-04] MEDS: MICONAZOLE 2% POWDER (DESENEX AF) 90 GM TOP SCH ×2 (08:04→20:31)
--- NOTE | 2021-01-04 08:14 | Diagnostic Imaging Report ---
CHEST 1 VIEW, AP/PA ONLY Indication: Pneumomediastinum, pneumonia Comparison: 01/03/2021 Findings: ET tube remains in stable position. There is increasing subcutaneous gas within the chest wall. The pneumomediastinum is more conspicuous with gas seen tracking into the lower neck. No appreciable pneumothorax. Bilateral perihilar pulmonary consolidations have not appreciably changed. Impression: 1. Worsening pneumomediastinum and chest wall gas. 2. No appreciable pneumothorax. 3. Stable ET tube. Dictated by: Dictated on workstation # [id number]
--- NOTE | 2021-01-04 08:31 | Tele-ICU Progress Note ---
Progress Note video rounds completed 70 y/o f with Covid PNA and now intubated Vent settings: 16/500/50%/10 sedated on propofol and precedex Receiving Heparin 5000sc for dvt px and pantoprazole fro GI prophylaxis Decadron 6mg Azithromycin 500 PE: BP: 140/71, no pressors Pulse 65 NSR O2 sats: 92% Labs: Ab.45/28/65/19 WBC: 16.6 Hgb: 10.8 plts: 249 Na 140 K: 4 Cl: 106 CO2 18 BUN: 50 Creat: 1.92 Glu 201 IMP: COVID PNA on ventilator Based upon ARDS net TV protocol given her height of 63 inches her TV should be closer to 310 for 6ml and PCO2 is 28 suggesting overventilation and peak pressures are 36-44 Otherwise stable Focused Exam Height, Weight, BMI Height: '" Weight: lbs. oz. kg; 41.18 BMI Method:Stated ANANYA MAURO MD Jan 04, 2021 08:31
--- NOTE | 2021-01-04 12:28 | Progress Note ---
Subjective Subjective Date Seen by Provider: Jan 04, 2021 Time Seen by Provider: 10:15 Intubated. Per nursing, She has went into SVT a couple times. Nursing talking with family about code status- in event her heart stops. Review of Systems ROS Unable to Obtain: INTUBATED Pulmonary: Dyspnea Cardiovascular: No: Chest Pain Gastrointestinal: No: Nausea, Vomiting Genitourinary: Other (BROWN IN PLACE) Neurological: Weakness, Confusion All Other Systems Reviewed All Other Systems Reviewed: Yes Objective Exam Vital Signs Vital Signs Date Time Temp Pulse Resp B/P (MAP) Pulse Ox O2 Delivery O2 Flow Rate FiO2 01/04/21 11:00 60 25 92 50 01/04/21 11:00 65 24 159/92 (114) 91 Mechanical Ventilator 50.00 01/04/21 10:45 61 01/04/21 10:00 61 19 155/81 (105) 93 Mechanical Ventilator 50.00 01/04/21 09:00 60 20 145/83 (103) 93 Mechanical Ventilator 50.00 01/04/21 08:04 61 01/04/21 08:00 Mechanical Ventilator 60 01/04/21 08:00 60 23 140/73 (95) 90 Mechanical Ventilator 50.00 01/04/21 07:09 146/71 01/04/21 07:00 60 01/04/21 07:00 60 21 146/71 (96) 93 Mechanical Ventilator 50.00 01/04/21 06:53 60 22 93 50 01/04/21 06:00 61 22 140/68 (92) 93 Mechanical Ventilator 50.00 01/04/21 05:55 Mechanical Ventilator 50.00 01/04/21 05:00 65 21 140/75 (96) 95 Mechanical Ventilator 60.00 01/04/21 04:10 Mechanical Ventilator 60 01/04/21 04:00 75 25 135/72 (93) 93 Mechanical Ventilator 60.00 01/04/21 03:32 Mechanical Ventilator 60.00 01/04/21 03:28 36.9 01/04/21 03:26 150/72 01/04/21 03:00 71 23 150/69 (96) 96 Mechanical Ventilator 80.00 01/04/21 02:19 86 01/04/21 02:14 71 24 96 70 01/04/21 02:00 74 23 150/73 (98) 97 Mechanical Ventilator 80.00 01/04/21 01:00 79 01/04/21 01:00 80 25 153/75 (101) 92 Mechanical Ventilator 80.00 01/04/21 00:00 80 24 154/74 (100) 94 Mechanical Ventilator 80.00 01/03/21 23:31 Mechanical Ventilator 80 01/03/21 23:14 36.9 01/03/21 23:09 156/82 01/03/21 23:00 45 14 156/82 (106) 95 Mechanical Ventilator 80.00 01/03/21 22:53 58 21 95 80 01/03/21 22:00 56 20 158/80 (106) 94 Mechanical Ventilator 80.00 01/03/21 21:00 57 21 158/78 (104) 92 Mechanical Ventilator 80.00 01/03/21 20:20 58 01/03/21 20:12 Mechanical Ventilator 80 01/03/21 20:00 68 21 161/83 (109) 92 Mechanical Ventilator 80.00 01/03/21 19:52 67 33 154/81 (105) 91 Mechanical Ventilator 80.00 01/03/21 19:48 154/81 01/03/21 19:11 36.0 01/03/21 19:00 63 01/03/21 19:00 63 22 153/78 (103) 91 Mechanical Ventilator 80.00 01/03/21 18:44 61 24 92 80 01/03/21 18:00 66 23 148/76 (100) 90 Mechanical Ventilator 80.00 01/03/21 17:00 56 21 149/75 (99) 93 Mechanical Ventilator 80.00 01/03/21 16:10 Mechanical Ventilator 80 01/03/21 16:00 53 19 153/79 (103) 94 Mechanical Ventilator 80.00 01/03/21 15:58 36.0 01/03/21 15:00 61 18 145/79 (101) 96 Mechanical Ventilator 80.00 01/03/21 14:43 60 24 96 80 01/03/21 14:18 63 141/78 01/03/21 14:18 63 142/85 01/03/21 14:00 54 16 142/95 (111) 96 Mechanical Ventilator 80.00 01/03/21 13:00 61 16 139/91 (107) 93 Mechanical Ventilator 80.00 I & O 01/04/21 07:00 Intake Total 100 ml Output Total 1425 ml Balance -1325 ml General Appearance: Chronically ill, Moderate Distress, Obese HEENT: PERRL/EOMI; No Scleral Icterus (L), No Scleral Icterus (R); Other (dry mucous membranes) Neck: Normal Inspection, Supple Respiratory: Decreased Breath Sounds, Respiratory Distress, Rhonci Cardiovascular: Regular Rate, Rhythm, No Murmur Gastrointestinal: Normal Bowel Sounds, Non Tender, Soft Back: Normal Inspection, No CVA Tenderness, No Vertebral Tenderness Extremity: No Calf Tenderness, Pedal Edema Neurologic/Psychiatric: Other (sedated) Skin: Cool (ON FEET), Mottled (ON HEELS) Results Lab Laboratory Tests 01/04/21 04:18: White Blood Count 16.6H, Red Blood Count 3.55L, Hemoglobin 10.8L, Hematocrit 31L , Mean Corpuscular Volume 88, Mean Corpuscular Hemoglobin 30, Mean Corpuscular Hemoglobin Concent 35, Red Cell Distribution Width 15.9H, Platelet Count 249, Mean Platelet Volume 10.5, Immature Granulocyte % (Auto) 7, Neutrophils (%) (Auto) 89H, Lymphocytes (%) (Auto) 2L, Monocytes (%) (Auto) 1, Eosinophils (%) (Auto) 0, Basophils (%) (Auto) 0, Neutrophils # (Auto) 14.8H, Lymphocytes # (Auto) 0.4L, Monocytes # (Auto) 0.2, Eosinophils # (Auto) 0.0, Basophils # (Auto) 0.1, Immature Granulocyte # (Auto) 1.1H, Neutrophils % (Manual) 89, Lymphocytes % (Manual) 4, Monocytes % (Manual) 3, Metamyelocytes % 1, Myelocytes % 3, Blood Morphology Comment NORMAL, Blood Gas Puncture Site ARTLINE, Blood Gas Patient Temperature 36.9, Arterial Blood pH 7.45H, Arterial Blood Partial Pre ssure CO2 28L, Arterial Blood Partial Pressure O2 65L, Arterial Blood HCO3 19L, Arterial Blood Total CO2 20.3L, Arterial Blood Oxygen Saturation 94, Arterial Blood Base Excess -3.9L, Nathan Test ARTLINE, Blood Gas Ventilator Setting YES, Blood Gas Inspired Oxygen 60%, Sodium Level 140, Potassium Level 4.0, Chloride Level 106, Carbon Dioxide Level 18L, Anion Gap 16H, Blood Urea Nitrogen 50H, Creatinine 1.92H, Estimat Glomerular Filtration Rate 26, BUN/Creatinine Ratio 26, Glucose Level 201H, Calcium Level 7.3L, Corrected Calcium 8.7, Phosphorus Level 2.4, Magnesium Level 1.8, Total Bilirubin 0.7, Aspartate Amino Transf (AST/SGOT) 26, Alanine Aminotransferase (ALT/SGPT) 36, Alkaline Phosphatase 66, Total Protein 5.3L, Albumin 2.3L Microbiology 01/03/21 Gram Stain - Final, Resulted 01/03/21 Sputum Culture - Preliminary, Resulted Probable Moraxella Catarrhalis 12/29/20 Urine Culture - Final, Complete NO GROWTH 12/29/20 Blood Culture - Preliminary, Resulted No growth Assessment/Plan Assessment/Plan Assessment and Plan 01/04/21- intubated- continue with vent support- appreciate eICU consult. -changed code status to DNR- continue current management with the change of in the event of patient coding- we will not administer CPR as chest compressions would not be in her best interest. Problems: (1) Acute respiratory failure Qualifiers: Qualified Codes: J96.01 - Acute respiratory failure with hypoxia (2) Abnormal liver function (3) Acute kidney injury Assessment & Plan: IVF, much improved. (4) Pneumonia due to COVID-19 virus (5) Hyponatremia Assessment & Plan: improved (6) CML (chronic myelocytic leukemia) (7) Renal cell carcinoma DESI SOLIZ MD Jan 04, 2021 12:28
[2021-01-04] MEDS: AZITHROMYCIN INJECTION 500 MG in NS (IVPB) 250 ML IV SCH (16:43)
[2021-01-04 16:47] LABS: ABG BASE EXCESS -3.2 MMOL/L (-2.5-2.5); ABG OXYGEN SATURATION 91 % (94-100); ABG PCO2 42 MMHG (35-45); ABG PO2 62 MMHG (79-93); ABG TCO2 23.2 MMOL/L (21.0-31.0)
[2021-01-04 17:01] LABS: ABG PH 7.33 (7.37-7.43)
[2021-01-04 17:03] LABS: INSPIRED O2 50; PATIENT TEMP 36.5; VENTILATOR NO
[2021-01-04 17:05] LABS: ALLENS TEST YES-POS
[2021-01-05] MEDS: DexMEDEtomidine 250 ML DRIP 250 ML IV SCH ×4 (01:25→18:23)
[2021-01-05] MEDS: PROPOFOL DRIP (ICU) 100 ML IV SCH ×4 (01:26→18:16)
[2021-01-05 02:19] VITALS: BP 142/70
[2021-01-05] MEDS: RT-ALBUTEROL INHALER HFA (VENTOLIN HFA) 18 GM IH SCH ×6 (02:19→22:01)
[2021-01-05] MEDS: guaiFENesin SYRUP 100 MG/5 ML 10 ML (ROBITUSSIN SF) PO SCH ×6 (03:05→23:27)
[2021-01-05] MEDS: LACTATED RINGERS 1,000 ML IV SCH ×2 (03:06→13:04)
[2021-01-05 04:45] LABS: BASOPHILS % (AUTO) 0 % (0-10); EOSINOPHILS % (AUTO) 0 % (0-10); HEMATOCRIT 30 % (35-52); HEMOGLOBIN 9.9 g/dL (11.5-16.0); LYMPHOCYTES # (AUTO) 0.7 10^3/uL (1.0-4.0); LYMPHOCYTES % (AUTO) 5 % (12-44); MEAN CORPUSCULAR HEMOGLOBIN 30 pg (25-34); MEAN CORPUSCULAR HGB CONC 33 g/dL (32-36); MEAN CORPUSCULAR VOLUME 91 fL (80-99); MEAN PLATELET VOLUME 10.4 fL (9.0-12.2); MONOCYTES # (AUTO) 0.3 10^3/uL (0.0-1.0); MONOCYTES % (AUTO) 2 % (0-12); NEUTROPHILS % (AUTO) 81 % (42-75); PLATELET COUNT 229 10^3/uL (130-400); WHITE BLOOD COUNT 13.5 10^3/uL (4.3-11.0)
[2021-01-05 04:46] LABS: ABG BASE EXCESS -7.6 MMOL/L (-2.5-2.5); ABG OXYGEN SATURATION 98 % (94-100); ABG PCO2 36 MMHG (35-45); ABG PO2 96 MMHG (79-93); ABG TCO2 18.8 MMOL/L (21.0-31.0)
[2021-01-05 04:49] LABS: ABG PH 7.31 (7.37-7.43)
[2021-01-05 04:50] LABS: ALLENS TEST ART LINE; INSPIRED O2 90%; PATIENT TEMP 36.4; VENTILATOR YES
[2021-01-05 04:58] LABS: POTASSIUM 4.6 MMOL/L (3.6-5.0)
[2021-01-05 05:03] LABS: PHOSPHORUS 3.4 MG/DL (2.3-4.7)
[2021-01-05 05:04] LABS: CREATININE SERUM 1.65 MG/DL (0.60-1.30)
[2021-01-05 05:06] LABS: MAGNESIUM 2.4 MG/DL (1.6-2.4)
[2021-01-05] MEDS: POTASSIUM CL 10MEQ/50ML IVPB 50 ML IV SCH (05:06)
[2021-01-05] MEDS: KCL 20 MEQ TAB (K-DUR) PO SCH (05:06)
[2021-01-05] MEDS: MAGNESIUM 1 GM/100 ML IVPB 100 ML IV SCH (05:06)
[2021-01-05 07:32] VITALS: BP 129/67
[2021-01-05] MEDS: MICONAZOLE 2% POWDER (DESENEX AF) 90 GM TOP SCH ×2 (07:58→21:17)
[2021-01-05] MEDS: PANTOPRAZOLE 40 MG (PROTONIX) VIAL IV SCH (07:58)
--- NOTE | 2021-01-05 07:59 | Diagnostic Imaging Report ---
EXAMINATION: Chest radiograph, portable AP view. DATE: 01/05/2021 4:00 AM INDICATION: 70-year-old female, pneumomediastinum. Shortness of breath. COMPARISON: January 04, 2021. FINDINGS: The endotracheal tube is approximately 6.1 cm above the saqib. The nasogastric tube extends at least to the level of the proximal stomach. The tip is not well seen. The right internal jugular central venous line overlies the mid SVC. There is multifocal bilateral lung consolidation which is essentially unchanged. There is redemonstrated pneumomediastinum which also appears grossly unchanged. There is redemonstrated subcutaneous gas. IMPRESSION: 1. Grossly unchanged pneumomediastinum and multifocal bilateral lung consolidation. 2. Support lines and tubes as above. Dictated by: Dictated on workstation # [id number]
[2021-01-05 10:44] VITALS: BP 119/63
--- NOTE | 2021-01-05 13:02 | Progress Note ---
Subjective Subjective Date Seen by Provider: Jan 05, 2021 Time Seen by Provider: 12:22 intubated. prone. now DNR. No overnight events. Review of Systems ROS Unable to Obtain: INTUBATED, sedated All Other Systems Reviewed All Other Systems Reviewed: Yes Objective Exam Vital Signs Vital Signs Date Time Temp Pulse Resp B/P (MAP) Pulse Ox O2 Delivery O2 Flow Rate FiO2 01/05/21 12:53 59 01/05/21 12:00 56 17 127/68 (87) 93 Mechanical Ventilator 70.00 01/05/21 11:33 35.8 01/05/21 11:00 63 19 122/60 (80) 96 Mechanical Ventilator 70.00 01/05/21 10:44 59 19 93 70 01/05/21 10:00 53 17 136/73 (94) 95 Mechanical Ventilator 70.00 01/05/21 09:00 55 25 131/63 (85) 95 Mechanical Ventilator 70.00 01/05/21 08:00 57 22 127/62 (83) 94 Mechanical Ventilator 70.00 01/05/21 08:00 Mechanical Ventilator 70 01/05/21 07:43 37.0 01/05/21 07:32 56 31 94 70 01/05/21 07:23 61 130/78 01/05/21 07:23 61 130/78 01/05/21 07:23 61 130/78 01/05/21 07:00 54 01/05/21 07:00 54 15 133/66 (88) 94 Mechanical Ventilator 70.00 01/05/21 06:00 56 15 122/65 (84) 91 Mechanical Ventilator 70.00 01/05/21 05:22 Mechanical Ventilator 70.00 01/05/21 05:00 61 16 128/61 (83) 95 Mechanical Ventilator 90.00 01/05/21 04:30 36.4 01/05/21 04:15 Mechanical Ventilator 90.00 01/05/21 04:00 67 21 128/61 (83) 92 Mechanical Ventilator 55.00 01/05/21 04:00 Mechanical Ventilator 70 01/05/21 03:00 52 14 140/74 (96) 93 Mechanical Ventilator 55.00 01/05/21 02:19 52 29 94 55 01/05/21 02:00 51 14 143/72 (95) 95 Mechanical Ventilator 55.00 01/05/21 01:26 53 142/70 6/27/21 01:26 142/70 01/05/21 01:25 53 01/05/21 01:00 53 14 138/72 (94) 95 Mechanical Ventilator 55.00 01/05/21 01:00 52 01/05/21 00:00 54 14 141/73 (95) 95 Mechanical Ventilator 55.00 01/04/21 23:42 36.6 01/04/21 23:28 Mechanical Ventilator 55 01/04/21 23:00 53 14 147/75 (99) 95 Mechanical Ventilator 55.00 01/04/21 22:25 54 29 95 55 01/04/21 22:00 55 14 146/73 (97) 95 Mechanical Ventilator 55.00 01/04/21 21:00 54 16 145/75 (98) 94 Mechanical Ventilator 55.00 01/04/21 20:25 Mechanical Ventilator 55 01/04/21 20:00 60 19 141/75 (97) 92 Mechanical Ventilator 55.00 01/04/21 19:56 60 01/04/21 19:55 139/74 01/04/21 19:55 59 01/04/21 19:20 64 20 141/73 (95) 90 Mechanical Ventilator 55.00 01/04/21 19:19 36.2 01/04/21 19:00 64 15 137/76 (96) 91 Mechanical Ventilator 50.00 01/04/21 19:00 64 01/04/21 18:26 64 23 90 50 01/04/21 18:00 65 19 134/75 (94) 91 Mechanical Ventilator 50.00 01/04/21 17:15 68 25 91 5 01/04/21 17:00 64 15 126/68 (87) 90 Mechanical Ventilator 50.00 01/04/21 17:00 80 16 136/83 (100) 94 Mechanical Ventilator 50.00 01/04/21 16:00 56 15 140/61 (87) 90 Mechanical Ventilator 50.00 01/04/21 16:00 91 Mechanical Ventilator 50 01/04/21 15:38 36.2 01/04/21 15:00 58 15 143/60 (87) 91 Mechanical Ventilator 50.00 01/04/21 14:34 56 17 91 50 01/04/21 14:00 56 16 149/78 (101) 91 Mechanical Ventilator 50.00 01/04/21 13:54 56 152/80 01/04/21 13:53 56 01/04/21 13:00 62 18 147/86 (106) 90 Mechanical Ventilator 50.00 I & O 01/05/21 07:00 Intake Total 650 ml Output Total 1340 ml Balance -690 ml General Appearance: Chronically ill, Moderate Distress, Obese HEENT: PERRL/EOMI; No Scleral Icterus (L), No Scleral Icterus (R); Other (dry mucous membranes) Neck: Normal Inspection, Supple Respiratory: Decreased Breath Sounds, Respiratory Distress, Rhonci Cardiovascular: Regular Rate, Rhythm, No Murmur Gastrointestinal: Normal Bowel Sounds, Non Tender, Soft Back: Normal Inspection, No CVA Tenderness, No Vertebral Tenderness Extremity: No Calf Tenderness, Pedal Edema Neurologic/Psychiatric: Other (sedated) Skin: Cool (ON FEET), Mottled (ON HEELS) Results Lab Laboratory Tests 01/04/21 16:34: Blood Gas Puncture Site R RAD, Blood Gas Patient Temperature 36.5, Arterial Blood pH 7.33*L, Arterial Blood Partial Pressure CO2 42, Arterial Blood Partial Pressure O2 62L, Arterial Blood HCO3 22L, Arterial Blood Total CO2 23.2, Arterial Blood Oxygen Saturation 91L, Arterial Blood Base Excess -3.2L, Nathan Test YES-POS, Blood Gas Ventilator Setting NO, Blood Gas Inspired Oxygen 50 01/05/21 04:35: Blood Gas Puncture Site ART LINE, Blood Gas Patient Temperature 36.4, Arterial Blood pH 7.31*L, Arterial Blood Partial Pressure CO2 36, Arterial Blood Partial Pressure O2 96H, Arterial Blood HCO3 18L, Arterial Blood Total CO2 18.8L, Arterial Blood Oxygen Saturation 98, Arterial Blood Base Excess -7.6L, Nathan Test ART LINE, Blood Gas Ventilator Setting YES, Blood Gas Inspired Oxygen 90%, White Blood Count 13.5H, Red Blood Count 3.34L, Hemoglobin 9.9L, Hematocrit 30L, Mean Corpuscular Volume 91, Mean Corpuscular Hemoglobin 30, Mean Corpuscular Hemoglobin Concent 33, Red Cell Distribution Width 16.8H, Platelet Count 229, Mean Platelet Volume 10.4, Immature Granulocyte % (Auto) 11, Neutrophils (%) (Auto) 81H, Lymphocytes (%) (Auto) 5L, Monocytes (%) (Auto) 2, Eosinophils (%) (Auto) 0, Basophils (%) (Auto) 0, Neutrophils # (Auto) 11.0H, Lymphocytes # (Auto) 0.7L, Monocytes # (Auto) 0.3, Eosinophils # (Auto) 0.0, Basophils # (Auto) 0.0, Immature Granulocyte # (Auto) 1.5H, Sodium Level 138, Potassium Level 4.6, Chloride Level 107, Carbon Dioxide Level 20L, Anion Gap 11, Blood Urea Nitrogen 45H, Creatinine 1.65H, Estimat Glomerular Filtration Rate 31, BUN/Creatinine Ratio 27, Glucose Level 159H, Calcium Level 7.0L, Phosphorus Level 3.4, Magnesium Level 2.4, Triglycerides Level 230H Microbiology 01/03/21 Gram Stain - Final, Complete 01/03/21 Sputum Culture - Final, Complete Moraxella catarrhalis Usual upper respiratory viviana 12/29/20 Urine Culture - Final, Complete NO GROWTH 12/29/20 Blood Culture - Final, Complete No growth Assessment/Plan Assessment/Plan Assessment and Plan 01/04/21- intubated- continue with vent support- appreciate eICU consult. -changed code status to DNR- continue current management with the change of in the event of patient coding- we will not administer CPR as chest compressions would not be in her best interest. 01/05/21- continue COVID care. currently prone. Cr continues to improve. sputum culture- moraxella- she is on azithromycin. on heparin for dvt ppx. Dispo: prognosis guarded. Problems: (1) Acute respiratory failure Qualifiers: Qualified Codes: J96.01 - Acute respiratory failure with hypoxia (2) Abnormal liver function (3) Acute kidney injury Assessment & Plan: IVF, much improved. (4) Pneumonia due to COVID-19 virus (5) Hyponatremia Assessment & Plan: improved (6) CML (chronic myelocytic leukemia) (7) Renal cell carcinoma DESI SOLIZ MD Jan 05, 2021 13:02
[2021-01-05] MEDS: AZITHROMYCIN INJECTION 500 MG in NS (IVPB) 250 ML IV SCH (14:15)
[2021-01-05 19:04] VITALS: BP 120/57
[2021-01-05] MEDS: RT-ALBUTEROL INHALER HFA (VENTOLIN HFA) 18 GM IH PRN ×2 (19:04→21:59)
[2021-01-05 21:59] VITALS: BP 120/62
[2021-01-06] MEDS: PROPOFOL DRIP (ICU) 100 ML IV SCH ×6 (00:13→19:45)
[2021-01-06] MEDS: DexMEDEtomidine 250 ML DRIP 250 ML IV SCH ×5 (00:13→23:47)
[2021-01-06] MEDS: RT-ALBUTEROL INHALER HFA (VENTOLIN HFA) 18 GM IH PRN (02:27)
[2021-01-06 02:35] VITALS: BP 120/62
[2021-01-06] MEDS: RT-ALBUTEROL INHALER HFA (VENTOLIN HFA) 18 GM IH SCH ×6 (02:35→22:53)
[2021-01-06] MEDS ORDERED: ROCURONIUM 10 MG/ML 5 ML SYRINGE IV ONE ×2 (03:26→03:30)
[2021-01-06] MEDS: guaiFENesin SYRUP 100 MG/5 ML 10 ML (ROBITUSSIN SF) PO SCH ×6 (04:03→23:41)
[2021-01-06 04:05] LABS: BASOPHILS # (AUTO) 0.1 10^3/uL (0.0-0.1); BASOPHILS % (AUTO) 0 % (0-10); EOSINOPHILS # (AUTO) 0.1 10^3/uL (0.0-0.3); EOSINOPHILS % (AUTO) 0 % (0-10); HEMATOCRIT 32 % (35-52); HEMOGLOBIN 10.4 g/dL (11.5-16.0); LYMPHOCYTES # (AUTO) 1.4 10^3/uL (1.0-4.0); LYMPHOCYTES % (AUTO) 7 % (12-44); MEAN CORPUSCULAR HEMOGLOBIN 31 pg (25-34); MEAN CORPUSCULAR HGB CONC 33 g/dL (32-36); MEAN CORPUSCULAR VOLUME 94 fL (80-99); MEAN PLATELET VOLUME 10.6 fL (9.0-12.2); MONOCYTES # (AUTO) 0.2 10^3/uL (0.0-1.0); MONOCYTES % (AUTO) 1 % (0-12); NEUTROPHILS # (AUTO) 16.4 10^3/uL (1.8-7.8); NEUTROPHILS % (AUTO) 82 % (42-75); PLATELET COUNT 215 10^3/uL (130-400); WHITE BLOOD COUNT 20.1 10^3/uL (4.3-11.0)
[2021-01-06 04:14] LABS: POTASSIUM 4.6 MMOL/L (3.6-5.0)
[2021-01-06 04:20] LABS: CREATININE SERUM 1.49 MG/DL (0.60-1.30)
[2021-01-06] MEDS: MAGNESIUM 1 GM/100 ML IVPB 100 ML IV SCH (05:02)
[2021-01-06] MEDS: POTASSIUM CL 10MEQ/50ML IVPB 50 ML IV SCH (05:02)
[2021-01-06] MEDS: KCL 20 MEQ TAB (K-DUR) PO SCH (05:02)
[2021-01-06 06:21] LABS: ABG BASE EXCESS -4.5 MMOL/L (-2.5-2.5); ABG OXYGEN SATURATION 90 % (94-100); ABG PCO2 58 MMHG (35-45); ABG PO2 60 MMHG (79-93); ABG TCO2 24.2 MMOL/L (21.0-31.0)
[2021-01-06 06:22] LABS: ABG PH 7.21 (7.37-7.43); ALLENS TEST YES-POS; INSPIRED O2 100%; PATIENT TEMP 36.4; VENTILATOR YES
[2021-01-06 06:26] VITALS: BP 92/46
[2021-01-06] MEDS: PANTOPRAZOLE 40 MG (PROTONIX) VIAL IV SCH ×2 (07:59→19:40)
[2021-01-06] MEDS: MICONAZOLE 2% POWDER (DESENEX AF) 90 GM TOP SCH ×2 (07:59→19:41)
[2021-01-06] MEDS ORDERED: NOREPINEPHRINE 8 MG/250 ML 250 ML IV ONE (08:00)
[2021-01-06] MEDS: LACTATED RINGERS 1,000 ML IV SCH (08:00)
--- NOTE | 2021-01-06 08:00 | Physical Therapy Progress Note ---
Therapy Progress Note Patient intubated and sedated this a.m. PT will continue to monitor patient status and initiate treatment when patient is able to actively participate with skilled therapy. STUART GREEN PT Jan 06, 2021 08:00
[2021-01-06] MEDS: NOREPINEPHRINE 8 MG/250 ML 250 ML IV SCH ×2 (08:04→19:13)
--- NOTE | 2021-01-06 08:25 | Diagnostic Imaging Report ---
Indication: Followup pneumomediastinum and pneumonia. Time of exam: 2:45 AM Comparison is made with prior chest one day earlier. Support lines and catheters remain in place. There is extensive infiltrate throughout both lungs particularly on the left side similar to prior exam. There continues to be subcutaneous gas in the chest lemos bilaterally as well as soft tissues of the neck. No definite pneumothorax is seen. The pneumomediastinum appears to have resolved since yesterday's exam. Impression: Continued extensive bilateral pulmonary infiltrates and subcutaneous emphysema. The previously noted pneumomediastinum has resolved. No pneumothorax is detected. Dictated by: Dictated on workstation # [id number]
--- NOTE | 2021-01-06 08:50 | Progress Note ---
Subjective Subjective Date Seen by Provider: Jan 06, 2021 Time Seen by Provider: 08:40 LOUIE IS A 70 Y/O FEMALE WHO IS A NEW PATIENT TO MY PRACTICE OF A FEW MONTHS AGO. SHE HAS HX OF CML, RENAL CARCINOMA STATUS POST NEPHRECTOMY LOUIE WAS INTUBATED ON 01/03/21, OVER THE WEEKEND SHE HAS BEEN STABLE ON THE VENTILATOR. Review of Systems ROS Unable to Obtain: INTUBATED, sedated Pulmonary: Other (PT ON VENTILATOR) All Other Systems Reviewed All Other Systems Reviewed: Yes Objective Exam Vital Signs Vital Signs - First Documented 12/31/20 12/31/20 12/31/20 12/31/20 00:00 01:00 02:45 08:00 Temp 37.9 Pulse 75 Resp 39 B/P (MAP) 125/65 (85) Pulse Ox 92 O2 Delivery Vapotherm O2 Flow Rate 40.00 90.00 FiO2 100 Capillary Refill : Less Than 3 Seconds General Appearance: Chronically ill, Obese HEENT: No Scleral Icterus (L), No Scleral Icterus (R) Neck: Normal Inspection, Supple Respiratory: Decreased Breath Sounds, Rhonci, Other (PT ON VENTILATOR) Cardiovascular: Regular Rate, Rhythm, No Murmur Gastrointestinal: Normal Bowel Sounds, Non Tender, Soft Back: Normal Inspection, No CVA Tenderness, No Vertebral Tenderness Extremity: No Calf Tenderness, Pedal Edema Neurologic/Psychiatric: Other (sedated) Skin: Cool (ON FEET), Mottled (ON HEELS) Results Lab Laboratory Tests 01/05/21 17:10: Glucometer 135H 01/06/21 03:58: White Blood Count 20.1H, Red Blood Count 3.40L, Hemoglobin 10.4L, Hematocrit 32L , Mean Corpuscular Volume 94, Mean Corpuscular Hemoglobin 31, Mean Corpuscular Hemoglobin Concent 33, Red Cell Distribution Width 17.4H, Platelet Count 215, Mean Platelet Volume 10.6, Immature Granulocyte % (Auto) 10, Neutrophils (%) (Auto) 82H, Lymphocytes (%) (Auto) 7L, Monocytes (%) (Auto) 1, Eosinophils (%) (Auto) 0, Basophils (%) (Auto) 0, Neutrophils # (Auto) 16.4H, Lymphocytes # (Auto) 1.4, Monocytes # (Auto) 0.2, Eosinophils # (Auto) 0.1, Basophils # (Auto) 0.1, Immature Granulocyte # (Auto) 1.9H, Sodium Level 139, Potassium Level 4.6, Chloride Level 109H, Carbon Dioxide Level 21, Anion Gap 9, Blood Urea Nitrogen 48H, Creatinine 1.49H, Estimat Glomerular Filtration Rate 35, BUN/Creatinine Ratio 32, Glucose Level 106H, Calcium Level 7.0L, Phosphorus Level 3.0, Magnesium Level 2.0 01/06/21 06:13: Blood Gas Puncture Site LEFT RADIAL, Blood Gas Patient Temperature 36.4, Arterial Blood pH 7.21*L, Arterial Blood Partial Pressure CO2 58H, Arterial Blood Partial Pressure O2 60L, Arterial Blood HCO3 22L, Arterial Blood Total CO2 24.2, Arterial Blood Oxygen Saturation 90L, Arterial Blood Base Excess -4.5L, Nathan Test YES-POS, Blood Gas Ventilator Setting YES, Blood Gas Inspired Oxygen 100% Microbiology 01/03/21 Gram Stain - Final, Complete 01/03/21 Sputum Culture - Final, Complete Moraxella catarrhalis Usual upper respiratory viviana 12/29/20 Urine Culture - Final, Complete NO GROWTH 12/29/20 Blood Culture - Final, Complete No growth Assessment/Plan Assessment/Plan Admission Dx ACUTE HYPOXIC RESPIRATORY FAILURE COVID 19 PULMONARY INFECTION HX OF RENAL CELL CARCINOMA WITH NEPHRECTOMY HYPONATREMIA ACUTE ON CHRONIC RENAL FAILURE (STAGE 4) CHRONIC MYELOGENOUS LEUKEMIA ACUTELY ELEVATED LIVER ENZYMES DUE TO SHOCK MORBID OBESITY Assessment and Plan ACUTE HYPOXIC RESPIRATORY FAILURE COVID 19 PULMONARY INFECTION HX OF RENAL CELL CARCINOMA WITH NEPHRECTOMY HYPONATREMIA ACUTE ON CHRONIC RENAL FAILURE (STAGE 4) CHRONIC MYELOGENOUS LEUKEMIA ACUTELY ELEVATED LIVER ENZYMES DUE TO SHOCK MORBID OBESITY ACUTE HYPOXIC RESPIRATORY FAILURE DUE TO COVID 19 PULMONARY INFECTION WITH PNEUMONIA - PT ON DECADRON, RECEIVED CONVALESCENT PLASMA - CANNOT BE ON REMDESIVIR DUE TO HER LIVER FUNCTION AND RENAL FUNCTION. - E-ICU ON CONSULT FOR THIS PATIENT WITH PULMONARY CRITICAL CARE PHYSICIANS ROUNDING ON THE PATIENT VIRTUALLY. - PT MECHANICALLY VENTILATED HX OF RENAL CELL CARCINOMA WITH NEPHRECTOMY AND ACUTE ON CHRONIC RENAL FAILURE (STAGE 4) - SUPPORTIVE CARE ONLY AT THIS TIME, RENAL ADJUSTMENT OF MEDICATIONS, IV FLUIDS. HYPONATREMIA - REPLENISHED WITH IV FLUIDS. - MONITOR LABS, REPLACE NEEDED. CHRONIC MYELOGENOUS LEUKEMIA - HOLDING GLEEVAC AT THIS TIME. ACUTELY ELEVATED LIVER ENZYMES DUE TO SHOCK AND COVID INFECTION - FLUIDS, SUPPORTIVE CARE, MONITOR LABS CLOSELY. - CANNOT GIVE REMDESIVIR DUE TO LIVER FAILURE MORBID OBESITY - WILL NEED TO BE ASSISTED WITH MOVEMENTS/PRONING, ETC. DVT PROPHYLAXIS WITH LOVENOX Problems: (1) Acute respiratory failure Qualifiers: Qualified Codes: J96.01 - Acute respiratory failure with hypoxia (2) Abnormal liver function (3) Acute kidney injury Assessment & Plan: IVF, much improved. (4) Pneumonia due to COVID-19 virus (5) Hyponatremia Assessment & Plan: improved (6) CML (chronic myelocytic leukemia) (7) Renal cell carcinoma Admission Dx ACUTE HYPOXIC RESPIRATORY FAILURE COVID 19 PULMONARY INFECTION HX OF RENAL CELL CARCINOMA WITH NEPHRECTOMY HYPONATREMIA ACUTE ON CHRONIC RENAL FAILURE (STAGE 4) CHRONIC MYELOGENOUS LEUKEMIA ACUTELY ELEVATED LIVER ENZYMES DUE TO SHOCK MORBID OBESITY Clinical Quality Measures Admission Status Admission Dx ACUTE HYPOXIC RESPIRATORY FAILURE COVID 19 PULMONARY INFECTION HX OF RENAL CELL CARCINOMA WITH NEPHRECTOMY HYPONATREMIA ACUTE ON CHRONIC RENAL FAILURE (STAGE 4) CHRONIC MYELOGENOUS LEUKEMIA ACUTELY ELEVATED LIVER ENZYMES DUE TO SHOCK MORBID OBESITY SAMAN RAI MD Jan 06, 2021 08:50
[2021-01-06 11:24] VITALS: BP 98/48
[2021-01-06] MEDS ORDERED: FUROSEMIDE INJECTION 120 MG in D5W 100 ML IVPB 108 ML IV SCH (11:30)
--- NOTE | 2021-01-06 11:30 | Tele-ICU Progress Note ---
Subjective Date Seen by a Provider: Jan 06, 2021 Time Seen by a Provider: 11:29 Sepsis Event Evaluation Height, Weight, BMI Height: '" Weight: lbs. oz. kg; 41.18 BMI Method:Stated Exam Exam Patient acknowledged, consented, and participated in this virtual visit which was conducted using real time audio/video Vital Signs Date Time Temp Pulse Resp B/P (MAP) Pulse Ox O2 Delivery O2 Flow Rate FiO2 01/06/21 10:00 65 26 142/57 (85) 91 Mechanical Ventilator 100.00 01/06/21 09:00 70 28 129/54 (79) 94 Mechanical Ventilator 100.00 01/06/21 08:04 83/49 01/06/21 08:00 63 24 126/50 (75) 90 Mechanical Ventilator 100.00 01/06/21 08:00 Mechanical Ventilator 100 01/06/21 07:44 36.2 01/06/21 07:00 61 28 81/39 (53) 88 Mechanical Ventilator 100.00 01/06/21 07:00 62 01/06/21 06:26 66 29 87 100 01/06/21 06:15 66 99/49 01/06/21 06:00 66 28 99/49 (66) 88 Mechanical Ventilator 100.00 01/06/21 05:37 66 109/48 01/06/21 05:37 66 109/48 01/06/21 05:00 66 19 102/51 (73) 88 Mechanical Ventilator 100.00 01/06/21 04:35 64 20 89 100 01/06/21 04:30 Mechanical Ventilator 100 01/06/21 04:15 Mechanical Ventilator 100.00 01/06/21 04:00 36.6 01/06/21 04:00 75 17 117/52 (80) 80 Mechanical Ventilator 75.00 01/06/21 03:00 64 10 95/55 (59) 77 Mechanical Ventilator 75.00 01/06/21 02:35 63 22 90 70 01/06/21 02:00 66 25 116/57 (81) 90 Mechanical Ventilator 75.00 01/06/21 01:00 69 01/06/21 01:00 69 26 115/58 (88) 91 Mechanical Ventilator 75.00 01/06/21 00:15 36.2 01/06/21 00:14 63 116/62 01/06/21 00:13 63 116/62 01/06/21 00:13 63 01/06/21 00:00 63 26 116/62 (82) 90 Mechanical Ventilator 75.00 01/05/21 23:43 Mechanical Ventilator 70 01/05/21 23:33 Mechanical Ventilator 75.00 01/05/21 23:00 63 21 118/58 (78) 89 Mechanical Ventilator 70.00 01/05/21 22:00 63 21 120/62 (81) 90 Mechanical Ventilator 70.00 01/05/21 21:59 63 22 90 70 01/05/21 21:00 62 20 121/61 (81) 91 Mechanical Ventilator 70.00 01/05/21 20:00 63 20 122/64 (83) 91 Mechanical Ventilator 70.00 01/05/21 19:45 37.0 01/05/21 19:41 Mechanical Ventilator 70 01/05/21 19:20 63 20 23/76 (59) 91 Mechanical Ventilator 70.00 01/05/21 19:04 63 20 91 70 01/05/21 19:00 75 19 120/57 (78) 90 Mechanical Ventilator 70.00 01/05/21 19:00 64 01/05/21 18:16 119/67 01/05/21 18:16 119/67 01/05/21 18:00 74 26 124/70 (88) 90 Mechanical Ventilator 70.00 01/05/21 17:00 70 21 116/57 (76) 90 Mechanical Ventilator 70.00 01/05/21 16:00 Mechanical Ventilator 70 01/05/21 16:00 68 19 122/64 (83) 91 Mechanical Ventilator 70.00 01/05/21 15:47 36.2 01/05/21 15:00 74 19 101/53 (69) 90 Mechanical Ventilator 70.00 01/05/21 14:00 59 17 124/62 (82) 92 Mechanical Ventilator 70.00 01/05/21 13:05 60 01/05/21 13:05 60 01/05/21 13:05 60 01/05/21 13:00 57 16 129/68 (88) 94 Mechanical Ventilator 70.00 01/05/21 12:53 59 01/05/21 12:00 Mechanical Ventilator 70 01/05/21 12:00 56 17 127/68 (87) 93 Mechanical Ventilator 70.00 01/05/21 11:33 35.8 I & O 01/06/21 07:00 Intake Total 2750 ml Output Total 1800 ml Balance 950 ml Height & Weight Height: '" Weight: lbs. oz. kg; 41.18 BMI Method:Stated General Appearance: Chronically ill, Moderate Distress, Obese HEENT: PERRL/EOMI; No Scleral Icterus (L), No Scleral Icterus (R); Other (dry mucous membranes) Neck: Normal Inspection, Supple Respiratory: Decreased Breath Sounds, Respiratory Distress, Rhonci Cardiovascular: Regular Rate, Rhythm, No Murmur Capillary Refill: Less Than 3 Seconds Gastrointestinal: non tender, soft, other (decreased BS) Extremity: No Calf Tenderness, Pedal Edema Neurologic/Psychiatric: Other (sedated) Skin: Cool (ON FEET), Mottled (ON HEELS) Results Lab Laboratory Tests 01/05/21 04:35 01/06/21 03:58 Assessment/Plan Assessment/Plan Available chart/ vitals / labs / Images reviewed Video assessment done using teleICU camera, rest of exam as per RN Discussed with RN Events overnight : Un-proned to supine, then after mult meds, iv push paralytics, and vent changes re-proned due to tachypnia and lowered sats not responding to rx/vent interventions. Afebrile , BP low this am no pressors, I/O = pos 1L Drips: propofol 40 precedex , lasi As per RN exam : sedated ., moves spontaneously Consultants: Hospital course: 12/29- admitte dwith COVID PNA on remdesivir and decadraon, d dimer 3, on once a day Lovenox 12/31 vapotherm 40 lpm FiO2 100% - RR 20 - 40 12/31- intubated 01/01 - self-extubated , spont RR 36, BiPAP 14/7 FiO2 70% 01/02 - can not tolerate BIPAP , started precedex - > back to vapotherm 40 lpm FiO2 90% (01/03) Re-intubated 01/06 - 100% peep 14 , hypotensive - levo started ECHO 12/31 - EF 70% , RVSP 45 mmHg A/P Avute resp failure , Covid PNA Vent 100% peep 14 rr 18 ( spon 25) 360 - PAP 35 - keep neg balance - will start on lasix gtt 01/06 - proning - sedation propofol - TLG 230 on 01.06 - will try to wean off - versed gtt 01/06 COVID PNA - remdesiivir - 12/30 - remdesivir off with ? Cr - decadron 6 iv - Heparin sQ Shock - starting on levo - suspect due to worsening acidosis - will increase TV to 350 ( 6 cc/ per IBW based on brandon 162 cm ) - also with increased WBC consider new infection - check line cx and PCT Pneumomediastinum 01/04 cxr - Sq emphesema same exam as per RN report . cxr 01/06 improved - will follow with cxr Leukocytosis - 12/29 - coag neg staph 07/13, urine MRSA swab neg , sputum 12/31 -, sputum 01/03 - moraxella - z max 01/03 - will do cx from line , check PCT Hyponatremia - admitted 118 12/29 =>12/31 to 127 - 01/02 - normalized - cont to monitor ELZA - admit Cr 3, slow improving to 1.5 - gentle diuresis with + volume status -> goal to keep even Transaminases -LFT's are elevated, need to be monitored-normalized - off remdesivir , probably due to COVID Lines : R IJ 12/29 (Central Line Necessity Reviewed) Shaw: RN feels needed due to drop in SpO2 when gets out of bed OG: + Nutrition: TF Analgesia: na Anxiety/ delirium na VTE Prophylaxis: hep 5K q8 Stress Ulcer Prophylaxis: pepcid ( on steroids Glycemic Control: + Plans in collaboration with bedside consultants and IM MDs. Discussed with RN to reach out if any questions or concerns A total of 33 minutes of critical care time was devoted to this patient today, required to treat and/or prevent further deterioration of critical care condition ( as above ) . ALENA CRAVEN MD Jan 06, 2021 11:30
[2021-01-06 13:46] VITALS: BP 111/50
[2021-01-06] MEDS: MIDAZOLAM DRIP PRE-MIX 100 ML IV SCH (13:59)
[2021-01-06] MEDS: AZITHROMYCIN INJECTION 500 MG in NS (IVPB) 250 ML IV SCH (14:04)
[2021-01-06 18:23] VITALS: BP 109/49
[2021-01-06 22:54] VITALS: BP 114/48
[2021-01-07] MEDS ORDERED: MIDAZOLAM DRIP PRE-MIX 100 ML IV ONE (01:41)
[2021-01-07 02:05] VITALS: BP 112/49
[2021-01-07] MEDS: RT-ALBUTEROL INHALER HFA (VENTOLIN HFA) 18 GM IH SCH ×6 (02:05→21:21)
[2021-01-07] MEDS: PROPOFOL DRIP (ICU) 100 ML IV SCH ×4 (02:49→23:22)
[2021-01-07] MEDS: guaiFENesin SYRUP 100 MG/5 ML 10 ML (ROBITUSSIN SF) PO SCH ×5 (04:13→23:20)
[2021-01-07 04:21] LABS: BASOPHILS % (AUTO) 0 % (0-10); EOSINOPHILS # (AUTO) 0.1 10^3/uL (0.0-0.3); EOSINOPHILS % (AUTO) 1 % (0-10); HEMATOCRIT 29 % (35-52); HEMOGLOBIN 9.2 g/dL (11.5-16.0); LYMPHOCYTES # (AUTO) 0.7 10^3/uL (1.0-4.0); LYMPHOCYTES % (AUTO) 4 % (12-44); MEAN CORPUSCULAR HEMOGLOBIN 30 pg (25-34); MEAN CORPUSCULAR HGB CONC 32 g/dL (32-36); MEAN CORPUSCULAR VOLUME 91 fL (80-99); MEAN PLATELET VOLUME 10.9 fL (9.0-12.2); MONOCYTES # (AUTO) 0.1 10^3/uL (0.0-1.0); MONOCYTES % (AUTO) 1 % (0-12); NEUTROPHILS # (AUTO) 15.4 10^3/uL (1.8-7.8); NEUTROPHILS % (AUTO) 88 % (42-75); PLATELET COUNT 187 10^3/uL (130-400); WHITE BLOOD COUNT 17.5 10^3/uL (4.3-11.0)
[2021-01-07 04:24] LABS: ABG BASE EXCESS -4.8 MMOL/L (-2.5-2.5); ABG OXYGEN SATURATION 95 % (94-100); ABG PCO2 39 MMHG (35-45); ABG PO2 72 MMHG (79-93); ABG TCO2 21.9 MMOL/L (21.0-31.0)
[2021-01-07 04:25] LABS: ABG PH 7.35 (7.37-7.43); INSPIRED O2 100%; VENTILATOR YES
[2021-01-07] MEDS: MIDAZOLAM DRIP PRE-MIX 100 ML IV SCH ×2 (04:38→23:24)
[2021-01-07] MEDS: LACTATED RINGERS 1,000 ML IV SCH ×2 (04:38→23:20)
[2021-01-07 04:44] LABS: POTASSIUM 4.9 MMOL/L (3.6-5.0)
[2021-01-07 04:45] LABS: ALBUMIN 1.8 GM/DL (3.2-4.5); CALCIUM 6.8 MG/DL (8.5-10.1)
[2021-01-07 04:50] LABS: CREATININE SERUM 1.74 MG/DL (0.60-1.30); PHOSPHORUS 4.3 MG/DL (2.3-4.7)
[2021-01-07 04:52] LABS: MAGNESIUM 1.9 MG/DL (1.6-2.4)
[2021-01-07] MEDS: POTASSIUM CL 10MEQ/50ML IVPB 50 ML IV SCH (05:14)
[2021-01-07] MEDS: MAGNESIUM 1 GM/100 ML IVPB 100 ML IV SCH (05:14)
[2021-01-07] MEDS: KCL 20 MEQ TAB (K-DUR) PO SCH (05:14)
[2021-01-07] MEDS: NOREPINEPHRINE 8 MG/250 ML 250 ML IV SCH ×2 (05:14→19:25)
[2021-01-07 06:52] VITALS: BP 92/59
--- NOTE | 2021-01-07 07:50 | Physical Therapy Progress Note ---
Therapy Progress Note Patient intubated and sedated this a.m. PT will continue to monitor patient status and initiate treatment when patient is able to actively participate with skilled therapy. STUART GREEN PT Jan 07, 2021 07:50
[2021-01-07] MEDS: PANTOPRAZOLE 40 MG (PROTONIX) VIAL IV SCH ×2 (08:09→19:34)
[2021-01-07] MEDS: MICONAZOLE 2% POWDER (DESENEX AF) 90 GM TOP SCH ×2 (08:09→19:35)
--- NOTE | 2021-01-07 08:42 | Progress Note ---
Subjective Subjective Date Seen by Provider: Jan 07, 2021 Time Seen by Provider: 09:10 LOUIE IS A 70 Y/O FEMALE WHO IS A NEW PATIENT TO MY PRACTICE OF A FEW MONTHS AGO. SHE HAS HX OF CML, RENAL CARCINOMA STATUS POST NEPHRECTOMY PT ON PRESSORS. WHITE COUNT INCREASING, HEMOGLOBIN STABLE Review of Systems ROS Unable to Obtain: INTUBATED, sedated All Other Systems Reviewed All Other Systems Reviewed: Yes Objective Exam Vital Signs Vital Signs - First Documented 01/01/21 01/01/21 01/01/21 01/01/21 00:00 00:05 08:02 08:17 Temp 36.2 Pulse 61 Resp 31 B/P (MAP) 207/61 Pulse Ox 80 O2 Delivery Room Air O2 Flow Rate 50.00 FiO2 55 Capillary Refill : Less Than 3 Seconds General Appearance: Chronically ill, Other (PT VENTILATED) HEENT: No Scleral Icterus (L), No Scleral Icterus (R); Other (dry mucous membranes) Neck: Normal Inspection, Supple Respiratory: Decreased Breath Sounds, Rhonci, Other (PT ON VENT) Cardiovascular: Regular Rate, Rhythm, No Murmur Gastrointestinal: Normal Bowel Sounds, Non Tender, Soft Back: Normal Inspection, No CVA Tenderness, No Vertebral Tenderness Extremity: No Calf Tenderness, Pedal Edema Neurologic/Psychiatric: Other (sedated) Skin: Cool (ON FEET), Mottled (ON HEELS) Results Lab Laboratory Tests 01/07/21 04:00: White Blood Count 17.5H, Red Blood Count 3.12L, Hemoglobin 9.2L, Hematocrit 29L, Mean Corpuscular Volume 91, Mean Corpuscular Hemoglobin 30, Mean Corpuscular Hemoglobin Concent 32, Red Cell Distribution Width 17.5H, Platelet Count 187, Mean Platelet Volume 10.9, Immature Granulocyte % (Auto) 6, Neutrophils (%) (Auto) 88H, Lymphocytes (%) (Auto) 4L, Monocytes (%) (Auto) 1, Eosinophils (%) (Auto) 1, Basophils (%) (Auto) 0, Neutrophils # (Auto) 15.4H, Lymphocytes # (Auto) 0.7L, Monocytes # (Auto) 0.1, Eosinophils # (Auto) 0.1, Basophils # (Auto) 0.0, Immature Granulocyte # (Auto) 1.1H, Sodium Level 137, Potassium Level 4.9, Chloride Level 108H, Carbon Dioxide Level 19L, Anion Gap 10, Blood Urea Nitrogen 55H, Creatinine 1.74H, Estimat Glomerular Filtration Rate 29, BUN/Creatinine Ratio 32, Glucose Level 85, Calcium Level 6.8L, Phosphorus Level 4.3, Magnesium Level 1.9, B-Type Natriuretic Peptide 801.8H, Albumin 1.8L, Triglycerides Level 296H, Procalcitonin 2.88H 01/07/21 04:07: Blood Gas Puncture Site LEFT BRACHIAL, Blood Gas Patient Temperature 35.0, Arterial Blood pH 7.35L, Arterial Blood Partial Pressure CO2 39, Arterial Blood Partial Pressure O2 72L, Arterial Blood HCO3 21L, Arterial Blood Total CO2 21.9, Arterial Blood Oxygen Saturation 95, Arterial Blood Base Excess -4.8L, Nathan Test NA, Blood Gas Ventilator Setting YES, Blood Gas Inspired Oxygen 100% Microbiology 01/03/21 Gram Stain - Final, Complete 01/03/21 Sputum Culture - Final, Complete Moraxella catarrhalis Usual upper respiratory viviana 12/29/20 Urine Culture - Final, Complete NO GROWTH 12/29/20 Blood Culture - Final, Complete No growth Assessment/Plan Assessment/Plan Admission Dx ACUTE HYPOXIC RESPIRATORY FAILURE COVID 19 PULMONARY INFECTION HX OF RENAL CELL CARCINOMA WITH NEPHRECTOMY HYPONATREMIA ACUTE ON CHRONIC RENAL FAILURE (STAGE 4) CHRONIC MYELOGENOUS LEUKEMIA ACUTELY ELEVATED LIVER ENZYMES DUE TO SHOCK MORBID OBESITY Assessment and Plan ACUTE HYPOXIC RESPIRATORY FAILURE COVID 19 PULMONARY INFECTION HX OF RENAL CELL CARCINOMA WITH NEPHRECTOMY HYPONATREMIA ACUTE ON CHRONIC RENAL FAILURE (STAGE 4) CHRONIC MYELOGENOUS LEUKEMIA ACUTELY ELEVATED LIVER ENZYMES DUE TO SHOCK MORBID OBESITY ACUTE HYPOXIC RESPIRATORY FAILURE DUE TO COVID 19 PULMONARY INFECTION WITH PNEUMONIA - PT ON DECADRON, RECEIVED CONVALESCENT PLASMA - CANNOT BE ON REMDESIVIR DUE TO HER LIVER FUNCTION AND RENAL FUNCTION. - E-ICU ON CONSULT FOR THIS PATIENT WITH PULMONARY CRITICAL CARE PHYSICIANS ROUNDING ON THE PATIENT VIRTUALLY. - PT MECHANICALLY VENTILATED - WHITE COUNT SLIGHTLY IMPROVED HX OF RENAL CELL CARCINOMA WITH NEPHRECTOMY AND ACUTE ON CHRONIC RENAL FAILURE (STAGE 4) - SUPPORTIVE CARE ONLY AT THIS TIME, RENAL ADJUSTMENT OF MEDICATIONS, IV FLUIDS. HYPONATREMIA - REPLENISHED WITH IV FLUIDS. - MONITOR LABS, REPLACE NEEDED. CHRONIC MYELOGENOUS LEUKEMIA - HOLDING GLEEVAC AT THIS TIME. ACUTELY ELEVATED LIVER ENZYMES DUE TO SHOCK AND COVID INFECTION - FLUIDS, SUPPORTIVE CARE, MONITOR LABS CLOSELY. - CANNOT GIVE REMDESIVIR DUE TO LIVER FAILURE MORBID OBESITY - WILL NEED TO BE ASSISTED WITH MOVEMENTS/PRONING, ETC. DVT PROPHYLAXIS WITH LOVENOX Problems: (1) Acute respiratory failure Qualifiers: Qualified Codes: J96.01 - Acute respiratory failure with hypoxia (2) Abnormal liver function (3) Acute kidney injury Assessment & Plan: IVF, much improved. (4) Pneumonia due to COVID-19 virus (5) Hyponatremia Assessment & Plan: improved (6) CML (chronic myelocytic leukemia) (7) Renal cell carcinoma Admission Dx ACUTE HYPOXIC RESPIRATORY FAILURE COVID 19 PULMONARY INFECTION HX OF RENAL CELL CARCINOMA WITH NEPHRECTOMY HYPONATREMIA ACUTE ON CHRONIC RENAL FAILURE (STAGE 4) CHRONIC MYELOGENOUS LEUKEMIA ACUTELY ELEVATED LIVER ENZYMES DUE TO SHOCK MORBID OBESITY Clinical Quality Measures Admission Status Admission Dx ACUTE HYPOXIC RESPIRATORY FAILURE COVID 19 PULMONARY INFECTION HX OF RENAL CELL CARCINOMA WITH NEPHRECTOMY HYPONATREMIA ACUTE ON CHRONIC RENAL FAILURE (STAGE 4) CHRONIC MYELOGENOUS LEUKEMIA ACUTELY ELEVATED LIVER ENZYMES DUE TO SHOCK MORBID OBESITY SAMAN RAI MD Jan 07, 2021 08:42
--- NOTE | 2021-01-07 09:09 | Diagnostic Imaging Report ---
EXAMINATION: CHEST 1 VIEW, AP/PA ONLY. INDICATION: Covid positive, pneumonia. COMPARISON: 01/06/2021. FINDINGS: Stable ET and enteric tubes with the tip of the enteric tube likely in the proximal stomach. Stable right IJ central venous catheter. No change in bilateral pulmonary consolidations with air bronchograms. No pneumothorax. Small volume of chest wall gas is unchanged. Potential small pleural effusions versus subpleural consolidations are unchanged. Grossly stable cardiac silhouette. IMPRESSION: 1. Stable support devices. 2. No change in bilateral pulmonary consolidations. 3. The report was faxed to Infection Control by [email or web address]@9:08 AM. Dictated by: Dictated on workstation # [id number]
--- NOTE | 2021-01-07 09:29 | Tele-ICU Progress Note ---
Subjective Date Seen by a Provider: Jan 07, 2021 Time Seen by a Provider: 09:29 Sepsis Event Evaluation Height, Weight, BMI Height: '" Weight: lbs. oz. kg; 41.18 BMI Method:Stated Exam Exam Patient acknowledged, consented, and participated in this virtual visit which was conducted using real time audio/video Vital Signs Date Time Temp Pulse Resp B/P (MAP) Pulse Ox O2 Delivery O2 Flow Rate FiO2 01/07/21 08:33 63 81/41 01/07/21 08:18 36.0 01/07/21 06:52 60 28 90 55 01/07/21 06:00 62 3 90/59 (69) 91 Mechanical Ventilator 100.00 01/07/21 05:15 61 36 90/48 (62) 92 Mechanical Ventilator 100.00 01/07/21 04:55 Mechanical Ventilator 100 01/07/21 04:38 62 01/07/21 04:30 35.8 01/07/21 04:15 62 36 86/50 (62) 91 Mechanical Ventilator 100.00 01/07/21 03:30 63 37 92/45 (61) 88 Mechanical Ventilator 100.00 01/07/21 03:15 61 13 90 Mechanical Ventilator 100.00 01/07/21 03:00 61 29 116/51 (72) 89 Mechanical Ventilator 55.00 01/07/21 02:49 60 112/49 01/07/21 02:05 60 34 92 55 01/07/21 02:00 61 30 112/49 (70) 92 Mechanical Ventilator 55.00 01/07/21 01:57 55.00 01/07/21 01:00 60 01/07/21 01:00 60 28 120/51 (74) 94 Mechanical Ventilator 65.00 01/07/21 00:00 60 33 114/53 (73) 92 Mechanical Ventilator 65.00 01/06/21 23:47 58 115/49 01/06/21 23:41 36.0 01/06/21 23:40 Mechanical Ventilator 65.00 01/06/21 23:32 Mechanical Ventilator 80 01/06/21 23:00 58 17 115/49 (71) 97 Mechanical Ventilator 80.00 01/06/21 22:54 59 22 96 80 01/06/21 22:03 Mechanical Ventilator 80.00 01/06/21 22:00 60 20 103/49 (67) 97 Mechanical Ventilator 90.00 01/06/21 21:00 60 20 107/49 (68) 96 Mechanical Ventilator 90.00 01/06/21 20:00 61 22 111/48 (69) 96 Mechanical Ventilator 90.00 01/06/21 19:57 Mechanical Ventilator 90 01/06/21 19:45 62 105/48 01/06/21 19:41 36.4 62 26 105/48 (67) 97 Mechanical Ventilator 90.00 01/06/21 19:00 63 01/06/21 19:00 63 20 108/47 (67) 97 Mechanical Ventilator 100.00 01/06/21 18:23 63 26 97 100 01/06/21 18:00 62 25 97/45 (62) 95 Mechanical Ventilator 100.00 01/06/21 17:56 62 01/06/21 17:00 63 22 103/47 (65) 96 Mechanical Ventilator 100.00 01/06/21 16:00 36.4 01/06/21 16:00 64 31 106/47 (66) 98 Mechanical Ventilator 100.00 01/06/21 16:00 Mechanical Ventilator 100 01/06/21 15:00 66 26 96/48 (64) 97 Mechanical Ventilator 100.00 01/06/21 14:00 62 29 91/48 (62) 96 Mechanical Ventilator 100.00 01/06/21 13:59 63 01/06/21 13:46 63 31 96 100 01/06/21 13:00 62 01/06/21 13:00 62 19 111/50 (70) 98 Mechanical Ventilator 100.00 01/06/21 12:00 63 32 104/49 (67) 96 Mechanical Ventilator 100.00 01/06/21 12:00 Mechanical Ventilator 100 01/06/21 11:55 64 01/06/21 11:54 62 01/06/21 11:51 63 01/06/21 11:24 63 24 96 100 01/06/21 11:00 63 28 98/48 (65) 90 Mechanical Ventilator 100.00 01/06/21 10:00 65 26 142/57 (85) 91 Mechanical Ventilator 100.00 I & O 01/07/21 07:00 Intake Total 100 ml Output Total 1515 ml Balance -1415 ml Height & Weight Height: '" Weight: lbs. oz. kg; 41.18 BMI Method:Stated General Appearance: Chronically ill, Moderate Distress, Obese HEENT: PERRL/EOMI; No Scleral Icterus (L), No Scleral Icterus (R); Other (dry mucous membranes) Neck: Normal Inspection, Supple Respiratory: Decreased Breath Sounds, Respiratory Distress, Rhonci Cardiovascular: Regular Rate, Rhythm, No Murmur Capillary Refill: Less Than 3 Seconds Gastrointestinal: non tender, soft, other (decreased BS) Extremity: No Calf Tenderness, Pedal Edema Neurologic/Psychiatric: Other (sedated) Skin: Cool (ON FEET), Mottled (ON HEELS) Results Lab Laboratory Tests 01/06/21 03:58 01/07/21 04:00 Assessment/Plan Assessment/Plan Available chart/ vitals / labs / Images reviewed Video assessment done using teleICU camera, rest of exam as per RN Discussed with RN Events overnight : no events , - proned til 4 am Afebrile , BP low this am no pressors, I/O = neg 1 L Drips: propofol 20 , versed 5 , precedex , As per RN exam : sedated ., moves spontaneously Consultants: Hospital course: 12/29- admitte dwith COVID PNA on remdesivir and decadraon, d dimer 3, on once a day Lovenox 12/31 vapotherm 40 lpm FiO2 100% - RR 20 - 40 12/31- intubated 01/01 - self-extubated , spont RR 36, BiPAP 14/7 FiO2 70% 01/02 - can not tolerate BIPAP , started precedex - > back to vapotherm 40 lpm FiO2 90% (01/03) Re-intubated 01/06 - 100% peep 14 , hypotensive - levo started , lasix gtt started ECHO 12/31 - EF 70% , RVSP 45 mmHg A/P Avute resp failure , Covid PNA Vent 100% peep 14 rr 18 ( spon 25) 350 - PAP 35 - keep neg balance - will start on lasix gtt 01/06 - sedation propofol - TLG 230 on 01.06 , 296 on 01/07 - will try to wean off - versed gtt 01/06 -RASS -3 , no sedation vacation with high O2 need COVID PNA - remdesiivir - 12/30 - remdesivir off with ? Cr - decadron 6 iv - Heparin sQ Shock - on levo - will increase TV to 350 ( 6 cc/ per IBW based on brandon 162 cm ) - also with increased WBC consider new infection Pneumomediastinum 01/04 cxr - Sq emphesema same exam as per RN report . cxr 01/06 improved - will follow with cxr Leukocytosis - 12/29 - coag neg staph 1/, urine MRSA swab neg , sputum 12/31 -, sputum 01/03 - moraxella - z max 01/03 - will do cx from line , PCT elevated - follow Hyponatremia - admitted 118 12/29 =>12/31 to 127 - 01/02 - normalized - cont to monitor ELZA - admit Cr 3, slow improving to 1.5 - gentle diuresis with lasix on 01/06 - no improvement in Fio2 , but Cr rising again - will stop diuresis-> goal to keep even Coffee grounds in NG 01/06 - TF on hold, on LIS Transaminases -LFT's are elevated, need to be monitored-normalized - off remdesivir , probably due to COVID Lines : R IJ 12/29 (Central Line Necessity Reviewed) Shaw: RN feels needed due to drop in SpO2 when gets out of bed OG: + Nutrition: TF on hold last 24 h Analgesia: na Anxiety/ delirium na VTE Prophylaxis: hep 5K q8 - on 01/06 for possible GIB Stress Ulcer Prophylaxis: pepcid ( on steroids Glycemic Control: + Plans in collaboration with bedside consultants and IM MDs. Discussed with RN to reach out if any questions or concerns A total of 33 minutes of critical care time was devoted to this patient today, required to treat and/or prevent further deterioration of critical care condition ( as above ) . ALENA CRAVEN MD Jan 07, 2021 09:29
[2021-01-07] MEDS ORDERED: ROCURONIUM 10 MG/ML 5 ML SYRINGE IV PRN (09:30)
[2021-01-07 09:49] VITALS: BP 109/52
[2021-01-07] MEDS: LACRI-LUBE OPTHALMIC OINT 3.5 GM TUBE OU PRN (09:54)
[2021-01-07] MEDS: DexMEDEtomidine 250 ML DRIP 250 ML IV SCH ×2 (10:01→23:21)
[2021-01-07] MEDS: AZITHROMYCIN INJECTION 500 MG in NS (IVPB) 250 ML IV SCH (14:20)
[2021-01-07 14:35] VITALS: BP 118/52
[2021-01-07 18:50] VITALS: BP 134/59
[2021-01-07] MEDS ORDERED: NOREPINEPHRINE 8 MG/250 ML 250 ML IV ONE (19:13)
[2021-01-07 21:14] VITALS: BP 134/63
[2021-01-08] MEDS ORDERED: ROCURONIUM 10 MG/ML 5 ML SYRINGE IV ONE ×2 (01:07→01:15)
[2021-01-08 01:23] VITALS: BP 127/59
[2021-01-08] MEDS: RT-ALBUTEROL INHALER HFA (VENTOLIN HFA) 18 GM IH SCH ×6 (01:30→21:25)
[2021-01-08] MEDS: guaiFENesin SYRUP 100 MG/5 ML 10 ML (ROBITUSSIN SF) PO SCH ×6 (02:27→23:09)
[2021-01-08 02:28] LABS: ABG BASE EXCESS -6.3 MMOL/L (-2.5-2.5); ABG OXYGEN SATURATION 99 % (94-100); ABG PCO2 52 MMHG (35-45); ABG PO2 153 MMHG (79-93); ABG TCO2 21.9 MMOL/L (21.0-31.0); BASOPHILS % (AUTO) 0 % (0-10); EOSINOPHILS % (AUTO) 0 % (0-10); HEMATOCRIT 29 % (35-52); HEMOGLOBIN 9.5 g/dL (11.5-16.0); LYMPHOCYTES # (AUTO) 0.7 10^3/uL (1.0-4.0); LYMPHOCYTES % (AUTO) 3 % (12-44); MEAN CORPUSCULAR HEMOGLOBIN 30 pg (25-34); MEAN CORPUSCULAR HGB CONC 33 g/dL (32-36); MEAN CORPUSCULAR VOLUME 91 fL (80-99); MEAN PLATELET VOLUME 11.1 fL (9.0-12.2); MONOCYTES # (AUTO) 0.5 10^3/uL (0.0-1.0); MONOCYTES % (AUTO) 2 % (0-12); NEUTROPHILS # (AUTO) 19.1 10^3/uL (1.8-7.8); NEUTROPHILS % (AUTO) 88 % (42-75); PLATELET COUNT 240 10^3/uL (130-400); WHITE BLOOD COUNT 21.6 10^3/uL (4.3-11.0)
[2021-01-08 02:30] LABS: ABG PH 7.21 (7.37-7.43)
[2021-01-08 02:31] LABS: ALLENS TEST YES-POS; INSPIRED O2 100%; PATIENT TEMP 36.6; VENTILATOR YES
[2021-01-08 02:39] LABS: POTASSIUM 5.4 MMOL/L (3.6-5.0)
[2021-01-08 02:40] LABS: CALCIUM 7.1 MG/DL (8.5-10.1)
[2021-01-08 02:44] LABS: CREATININE SERUM 1.94 MG/DL (0.60-1.30); PHOSPHORUS 5.6 MG/DL (2.3-4.7)
[2021-01-08 02:46] LABS: MAGNESIUM 1.9 MG/DL (1.6-2.4)
[2021-01-08] MEDS: POTASSIUM CL 10MEQ/50ML IVPB 50 ML IV SCH (02:49)
[2021-01-08] MEDS: MAGNESIUM 1 GM/100 ML IVPB 100 ML IV SCH (02:49)
[2021-01-08] MEDS: NOREPINEPHRINE 8 MG/250 ML 250 ML IV SCH ×2 (02:49→15:28)
[2021-01-08] MEDS: KCL 20 MEQ TAB (K-DUR) PO SCH (02:49)
[2021-01-08] MEDS: PROPOFOL DRIP (ICU) 100 ML IV SCH ×3 (05:03→20:31)
[2021-01-08 05:37] LABS: ABG BASE EXCESS -6.2 MMOL/L (-2.5-2.5); ABG OXYGEN SATURATION 99 % (94-100); ABG PCO2 28 MMHG (35-45); ABG PH 7.42 (7.37-7.43); ABG PO2 125 MMHG (79-93); ABG TCO2 18.4 MMOL/L (21.0-31.0)
[2021-01-08 05:39] LABS: ALLENS TEST YES-POS; INSPIRED O2 80%; PATIENT TEMP 36.3; VENTILATOR YES
[2021-01-08 06:52] VITALS: BP 130/57
--- NOTE | 2021-01-08 07:59 | Physical Therapy Progress Note ---
Therapy Progress Note Patient intubated and sedated this a.m. PT will continue to monitor patient status and initiate treatment when patient is able to actively participate with skilled therapy. KARIE OSULLIVAN PT Jan 08, 2021 07:58
--- NOTE | 2021-01-08 08:49 | Diagnostic Imaging Report ---
INDICATION: Covid 19 pneumonia and intubation. COMPARISON: Correlation is made with the prior chest from 1 day earlier. FINDINGS: The ET tube has its tip above the saqib. The right IJ line has its tip overlying the SVC. The NG tube passes below the diaphragm. Extensive bilateral pulmonary infiltrates persist. There is no pneumothorax. IMPRESSION: No change in the bilateral infiltrates when compared with the exam of one day earlier. The report was faxed to Infection Control by [email or web address]:50 AM. Dictated by: Dictated on workstation # [id number]
[2021-01-08] MEDS: PANTOPRAZOLE 40 MG (PROTONIX) VIAL IV SCH ×2 (09:00→19:28)
[2021-01-08] MEDS: MICONAZOLE 2% POWDER (DESENEX AF) 90 GM TOP SCH ×2 (09:01→19:28)
[2021-01-08] MEDS ORDERED: ALBUMIN 25% 25 GM/100 ML 100 ML IV ONE (09:45)
--- NOTE | 2021-01-08 09:49 | Tele-ICU Progress Note ---
Subjective Date Seen by a Provider: Jan 08, 2021 Time Seen by a Provider: 09:48 Sepsis Event Evaluation Height, Weight, BMI Height: '" Weight: lbs. oz. kg; 41.18 BMI Method:Stated Exam Exam Patient acknowledged, consented, and participated in this virtual visit which was conducted using real time audio/video Vital Signs Date Time Temp Pulse Resp B/P (MAP) Pulse Ox O2 Delivery O2 Flow Rate FiO2 01/08/21 09:00 36.4 77 27 135/61 (85) 92 Mechanical Ventilator 70.00 01/08/21 08:00 36.4 79 26 125/58 (80) 94 Mechanical Ventilator 70.00 01/08/21 07:10 Mechanical Ventilator 70.00 01/08/21 07:00 36.3 78 22 126/57 (80) 97 Mechanical Ventilator 70.00 01/08/21 06:52 75 24 97 80 01/08/21 06:37 76 01/08/21 06:00 36.3 75 21 129/55 (79) 97 Mechanical Ventilator 80.00 01/08/21 05:07 Mechanical Ventilator 80.00 01/08/21 05:03 108/49 01/08/21 05:00 36.3 75 23 108/49 (68) 96 Mechanical Ventilator 90.00 01/08/21 04:14 Mechanical Ventilator 90.00 01/08/21 04:00 36.3 77 22 113/50 (71) 98 Mechanical Ventilator 100.00 01/08/21 03:00 36.4 84 19 102/50 (67) 98 Mechanical Ventilator 100.00 01/08/21 03:00 Mechanical Ventilator 90 01/08/21 02:30 36.5 86 18 109/49 (69) 98 Mechanical Ventilator 100.00 01/08/21 02:29 110/51 01/08/21 02:25 01/08/21 02:23 80/44 01/08/21 02:00 36.8 76 24 97 Mechanical Ventilator 100.00 01/08/21 01:23 75 25 97 100 01/08/21 01:00 76 01/08/21 01:00 36.8 76 25 132/58 (82) 97 Mechanical Ventilator 90.00 01/08/21 00:00 36.9 76 25 123/90 (101) 97 Mechanical Ventilator 90.00 01/07/21 23:27 Mechanical Ventilator 90 01/07/21 23:24 78 01/07/21 23:22 125/61 01/07/21 23:21 77 01/07/21 23:00 36.7 76 25 127/61 (83) 97 Mechanical Ventilator 90.00 01/07/21 22:00 36.4 75 27 128/60 (82) 97 Mechanical Ventilator 90.00 01/07/21 21:36 Mechanical Ventilator 90.00 01/07/21 21:27 137/63 01/07/21 21:14 72 22 97 90 01/07/21 21:00 36.0 71 23 135/65 (88) 98 Mechanical Ventilator 100.00 01/07/21 20:02 35.8 01/07/21 20:00 35.8 70 12 133/63 (86) 98 Mechanical Ventilator 100.00 01/07/21 19:53 92/49 01/07/21 19:41 Mechanical Ventilator 100 01/07/21 19:27 36.0 Mechanical Ventilator 100.00 01/07/21 19:25 135/58 01/07/21 19:00 71 26 131/58 (82) 98 Mechanical Ventilator 100.00 01/07/21 19:00 71 01/07/21 18:50 71 22 98 100 01/07/21 18:00 70 23 137/58 (84) 98 Mechanical Ventilator 100.00 01/07/21 17:44 70 123/50 01/07/21 17:00 73 21 123/51 (75) 98 Mechanical Ventilator 100.00 01/07/21 16:25 36.2 01/07/21 16:15 Mechanical Ventilator 100 01/07/21 14:35 73 21 97 55 01/07/21 13:00 73 01/07/21 12:30 36.2 01/07/21 12:15 Mechanical Ventilator 100 01/07/21 12:00 76 27 118/52 (74) 97 Mechanical Ventilator 100.00 01/07/21 10:01 70 108/52 01/07/21 09:49 68 37 88 55 I & O 01/08/21 07:00 Intake Total 1930 ml Output Total 1700 ml Balance 230 ml Height & Weight Height: '" Weight: lbs. oz. kg; 41.18 BMI Method:Stated General Appearance: Chronically ill, Moderate Distress, Obese HEENT: PERRL/EOMI; No Scleral Icterus (L), No Scleral Icterus (R); Other (dry mucous membranes) Neck: Normal Inspection, Supple Respiratory: Decreased Breath Sounds, Respiratory Distress, Rhonci Cardiovascular: Regular Rate, Rhythm, No Murmur Capillary Refill: Less Than 3 Seconds Gastrointestinal: non tender, soft, other (decreased BS) Extremity: No Calf Tenderness, Pedal Edema Neurologic/Psychiatric: Other (sedated) Skin: Cool (ON FEET), Mottled (ON HEELS) Results Lab Laboratory Tests 01/07/21 04:00 01/08/21 02:11 Assessment/Plan Assessment/Plan Available chart/ vitals / labs / Images reviewed Video assessment done using teleICU camera, rest of exam as per RN Discussed with RN Events overnight : proned til 4 am - dropped BP when turned supine Afebrile , BP low this am no pressors, I/O = neg 1 L Drips: propofol 20 , versed 5 , precedex , levo 0,06 As per RN exam : sedated ., moves spontaneously RASS-3 Consultants: Hospital course: 12/29- admitte dwith COVID PNA on remdesivir and decadraon, d dimer 3, on once a day Lovenox 12/31 vapotherm 40 lpm FiO2 100% - RR 20 - 40 12/31- intubated 01/01 - self-extubated , spont RR 36, BiPAP 22/01 FiO2 70% 01/02 - can not tolerate BIPAP , started precedex - > back to vapotherm 40 lpm FiO2 90% (01/03) Re-intubated 01/06 - 100% peep 14 , hypotensive - levo started , lasix gtt started 01/07 - stopped lasix with ? cr , peep 14 100% 01/08 70% peep 14 ECHO 12/31 - EF 70% , RVSP 45 mmHg A/P Avute resp failure , Covid PNA PC Vent 70% peep 14 rr 18 ( spon 25) 350 - PAP 35 - keep neg balance - - sedation propofol - TLG 230 on 01.06 , 296 on 01/07 - will try to wean off - versed gtt 01/06 -RASS -3 , no sedation vacation with high O2 need COVID PNA - remdesiivir - 12/30 - remdesivir off with ? Cr - decadron 6 iv - Heparin sQ - on hold for possible GIB 01/06 - is stable HB consider to resume tomorrow Shock - on levo - also with increased WBC consider new infection Pneumomediastinum 01/04 cxr - Sq emphesema same exam as per RN report . cxr 01/06 improved - will follow with cxr Leukocytosis - 12/29 - coag neg staph 07/13, urine MRSA swab neg , sputum 12/31 -, sputum 01/03 - moraxella - z max 01/03 - will do cx from line , PCT elevated - follow Hyponatremia - admitted 118 12/29 =>12/31 to 127 - 01/02 - normalized - cont to monitor ELZA - admit Cr 3, slow improving to 1.5 - gentle diuresis with lasix on 01/06 - no improvement in Fio2 , but Cr rising again off diuresis-> goal to keep even , also will give albumin trnafusion as volume expansion - recheck bmp at 14.00 - ? rising K Coffee grounds in NG 01/06 - TF on hold, on LIS x24 h - pink minmal secretions - will stert TF 01/08 - PPI BID Transaminases -LFT's are elevated, need to be monitored-normalized - off remdesivir , probably due to COVID Lines : R IJ 12/29 (Central Line Necessity Reviewed) Shaw: RN feels needed due to drop in SpO2 when gets out of bed OG: + Nutrition: TF on hold last 24 h Analgesia: na Anxiety/ delirium na VTE Prophylaxis: hep 5K q8 - on hols 01/06 for possible GIB - NEED TO RESUME Stress Ulcer Prophylaxis: PPI BID Glycemic Control: + Plans in collaboration with bedside consultants and IM MDs. Discussed with RN to reach out if any questions or concerns A total of 36 minutes of critical care time was devoted to this patient today, required to treat and/or prevent further deterioration of critical care conditio n ( as above ) . ALENA CRAVEN MD Jan 08, 2021 09:49
--- NOTE | 2021-01-08 09:50 | Progress Note ---
Subjective Subjective Date Seen by Provider: Jan 08, 2021 Time Seen by Provider: 09:50 LOUIE IS A 70 Y/O FEMALE WHO IS A NEW PATIENT TO MY PRACTICE OF A FEW MONTHS AGO. SHE HAS HX OF CML, RENAL CARCINOMA STATUS POST NEPHRECTOMY STAFF REPORTS PT HAS NOT HAD ANY CHANGES IN HER RESPIRATORY STATUS, NO IMPROVEMENT, PEEP STILL AT 14, FIO2 AT 80 Review of Systems ROS Unable to Obtain: INTUBATED, sedated All Other Systems Reviewed All Other Systems Reviewed: Yes Objective Exam Vital Signs Vital Signs - First Documented 01/02/21 01/02/21 01/02/21 01/02/21 00:00 02:22 04:00 05:33 Temp 35.8 Pulse 68 Resp 29 B/P (MAP) 138/88 Pulse Ox 92 O2 Delivery NIV Bilevel O2 Flow Rate 50.00 FiO2 50 Capillary Refill : Less Than 3 Seconds General Appearance: Chronically ill, Obese, Other (PT VENTILATED) HEENT: PERRL/EOMI; No Scleral Icterus (L), No Scleral Icterus (R); Other (dry mucous membranes) Neck: Normal Inspection, Supple Respiratory: Decreased Breath Sounds, Respiratory Distress, Rhonci Cardiovascular: No Murmur, Tachycardia Gastrointestinal: Normal Bowel Sounds, Non Tender, Soft Back: Normal Inspection, No CVA Tenderness, No Vertebral Tenderness Extremity: No Calf Tenderness, Pedal Edema Neurologic/Psychiatric: Other (sedated) Skin: Cool (ON FEET), Mottled (ON HEELS) Results Lab Laboratory Tests 01/08/21 02:11: White Blood Count 21.6H, Red Blood Count 3.16L, Hemoglobin 9.5L, Hematocrit 29L, Mean Corpuscular Volume 91, Mean Corpuscular Hemoglobin 30, Mean Corpuscular Hemoglobin Concent 33, Red Cell Distribution Width 17.6H, Platelet Count 240, Mean Platelet Volume 11.1, Immature Granulocyte % (Auto) 6, Neutrophils (%) (Auto) 88H, Lymphocytes (%) (Auto) 3L, Monocytes (%) (Auto) 2, Eosinophils (%) (Auto) 0, Basophils (%) (Auto) 0, Neutrophils # (Auto) 19.1H, Lymphocytes # (Auto) 0.7L, Monocytes # (Auto) 0.5, Eosinophils # (Auto) 0.0, Basophils # (Auto) 0.0, Immature Granulocyte # (Auto) 1.3H, Blood Gas Puncture Site RIGHT RADIAL, Blood Gas Patient Temperature 36.6, Arterial Blood pH 7.21*L, Arterial Blood Partial Pressure CO2 52H, Arterial Blood Partial Pressure O2 153H, Arterial Blood HCO3 20L, Arterial Blood Total CO2 21.9, Arterial Blood Oxygen Saturation 99, Arterial Blood Base Excess -6.3L, Nathan Test YES-POS, Blood Gas Ventilator Setting YES, Blood Gas Inspired Oxygen 100%, Sodium Level 138, Potassium Level 5.4H, Chloride Level 107, Carbon Dioxide Level 18L, Anion Gap 13, Blood Urea Nitrogen 60H, Creatinine 1.94H, Estimat Glomerular Filtration Rate 26, BUN/Creatinine Ratio 31, Glucose Level 98, Calcium Level 7.1L, Phosphorus Level 5.6H, Magnesium Level 1.9 01/08/21 05:08: Blood Gas Puncture Site LEFT RADIAL, Blood Gas Patient Temperature 36.3, Arterial Blood pH 7.42, Arterial Blood Partial Pressure CO2 28L, Arterial Blood Partial Pressure O2 125H, Arterial Blood HCO3 18L, Arterial Blood Total CO2 18.4L, Arterial Blood Oxygen Saturation 99, Arterial Blood Base Excess -6.2L, Nathan Test YES-POS, Blood Gas Ventilator Setting YES, Blood Gas Inspired Oxygen 80% Microbiology 01/06/21 Blood Culture - Preliminary, Resulted No growth 01/03/21 Gram Stain - Final, Complete 01/03/21 Sputum Culture - Final, Complete Moraxella catarrhalis Usual upper respiratory viviana 12/29/20 Urine Culture - Final, Complete NO GROWTH Assessment/Plan Assessment/Plan Admission Dx ACUTE HYPOXIC RESPIRATORY FAILURE COVID 19 PULMONARY INFECTION HX OF RENAL CELL CARCINOMA WITH NEPHRECTOMY HYPONATREMIA ACUTE ON CHRONIC RENAL FAILURE (STAGE 4) CHRONIC MYELOGENOUS LEUKEMIA ACUTELY ELEVATED LIVER ENZYMES DUE TO SHOCK MORBID OBESITY Assessment and Plan ACUTE HYPOXIC RESPIRATORY FAILURE COVID 19 PULMONARY INFECTION HX OF RENAL CELL CARCINOMA WITH NEPHRECTOMY HYPONATREMIA ACUTE ON CHRONIC RENAL FAILURE (STAGE 4) CHRONIC MYELOGENOUS LEUKEMIA ACUTELY ELEVATED LIVER ENZYMES DUE TO SHOCK MORBID OBESITY ACUTE HYPOXIC RESPIRATORY FAILURE DUE TO COVID 19 PULMONARY INFECTION WITH PNEUMONIA - PT ON DECADRON, RECEIVED CONVALESCENT PLASMA - CANNOT BE ON REMDESIVIR DUE TO HER LIVER FUNCTION AND RENAL FUNCTION. - E-ICU ON CONSULT FOR THIS PATIENT WITH PULMONARY CRITICAL CARE PHYSICIANS ROUNDING ON THE PATIENT VIRTUALLY. - PT MECHANICALLY VENTILATED - WHITE COUNT INCREASED TODAY HX OF RENAL CELL CARCINOMA WITH NEPHRECTOMY AND ACUTE ON CHRONIC RENAL FAILURE (STAGE 4) - SUPPORTIVE CARE ONLY AT THIS TIME, RENAL ADJUSTMENT OF MEDICATIONS, IV FLUIDS. HYPONATREMIA - REPLENISHED WITH IV FLUIDS. - MONITOR LABS, REPLACE NEEDED. CHRONIC MYELOGENOUS LEUKEMIA - HOLDING GLEEVAC AT THIS TIME. ACUTELY ELEVATED LIVER ENZYMES DUE TO SHOCK AND COVID INFECTION - FLUIDS, SUPPORTIVE CARE, MONITOR LABS CLOSELY. - CANNOT GIVE REMDESIVIR DUE TO LIVER FAILURE MORBID OBESITY - WILL NEED TO BE ASSISTED WITH MOVEMENTS/PRONING, ETC. DVT PROPHYLAXIS WITH LOVENOX Problems: (1) Acute respiratory failure Qualifiers: Qualified Codes: J96.01 - Acute respiratory failure with hypoxia (2) Abnormal liver function (3) Acute kidney injury Assessment & Plan: IVF, much improved. (4) Pneumonia due to COVID-19 virus (5) Hyponatremia Assessment & Plan: improved (6) CML (chronic myelocytic leukemia) (7) Renal cell carcinoma Admission Dx ACUTE HYPOXIC RESPIRATORY FAILURE COVID 19 PULMONARY INFECTION HX OF RENAL CELL CARCINOMA WITH NEPHRECTOMY HYPONATREMIA ACUTE ON CHRONIC RENAL FAILURE (STAGE 4) CHRONIC MYELOGENOUS LEUKEMIA ACUTELY ELEVATED LIVER ENZYMES DUE TO SHOCK MORBID OBESITY Clinical Quality Measures Admission Status Admission Dx ACUTE HYPOXIC RESPIRATORY FAILURE COVID 19 PULMONARY INFECTION HX OF RENAL CELL CARCINOMA WITH NEPHRECTOMY HYPONATREMIA ACUTE ON CHRONIC RENAL FAILURE (STAGE 4) CHRONIC MYELOGENOUS LEUKEMIA ACUTELY ELEVATED LIVER ENZYMES DUE TO SHOCK MORBID OBESITY SAMAN RAI MD Jan 08, 2021 09:50
[2021-01-08 10:57] VITALS: BP 146/64
[2021-01-08] MEDS: DexMEDEtomidine 250 ML DRIP 250 ML IV SCH (13:48)
[2021-01-08] MEDS: MIDAZOLAM DRIP PRE-MIX 100 ML IV SCH (13:48)
[2021-01-08 14:27] VITALS: BP 117/58
[2021-01-08 14:53] LABS: CALCIUM 7.4 MG/DL (8.5-10.1); CREATININE SERUM 1.95 MG/DL (0.60-1.30); POTASSIUM 5.6 MMOL/L (3.6-5.0)
[2021-01-08] MEDS ORDERED: SOD POLYSTERENE 15 GM/60 ML (KAYEXALATE) UNIT DOSE PR NR (15:45)
[2021-01-08] MEDS ORDERED: CALCIUM CHLORIDE 1 GM/10 ML (IMS) SYR IV NR (15:45)
[2021-01-08] MEDS ORDERED: inSUlin (REGULAR) HUMAN 1 UNIT/0.01 ML (CHARGE PER UNIT) IV NR (15:45)
[2021-01-08] MEDS ORDERED: SODIUM BICARB 8.4% 50 MEQ/50 ML (ABBOTT) SYR IV NR (15:45)
[2021-01-08] MEDS ORDERED: DEXTROSE 50% 50 ML (IMS) SYR IV NR (15:45)
[2021-01-08 18:53] VITALS: BP 113/57
[2021-01-08 19:56] LABS: POTASSIUM 5.1 MMOL/L (3.6-5.0)
[2021-01-08 19:57] LABS: CALCIUM 7.4 MG/DL (8.5-10.1)
[2021-01-08 20:02] LABS: CREATININE SERUM 2.02 MG/DL (0.60-1.30)
[2021-01-08] MEDS: ALBUMIN 25% 25 GM/100 ML 100 ML IV SCH (20:29)
[2021-01-08 21:25] VITALS: BP 114/61
[2021-01-08] MEDS: LACTATED RINGERS 1,000 ML IV SCH (23:12)
[2021-01-09] MEDS: PROPOFOL DRIP (ICU) 100 ML IV SCH ×4 (00:45→17:55)
[2021-01-09] MEDS: NOREPINEPHRINE 8 MG/250 ML 250 ML IV SCH ×3 (00:54→22:24)
[2021-01-09] MEDS: RT-ALBUTEROL INHALER HFA (VENTOLIN HFA) 18 GM IH PRN (02:33)
[2021-01-09 02:34] VITALS: BP 145/69
[2021-01-09 02:42] LABS: BASOPHILS % (AUTO) 0 % (0-10); EOSINOPHILS % (AUTO) 0 % (0-10); HEMATOCRIT 23 % (35-52); HEMOGLOBIN 7.7 g/dL (11.5-16.0); LYMPHOCYTES # (AUTO) 0.5 10^3/uL (1.0-4.0); LYMPHOCYTES % (AUTO) 4 % (12-44); MEAN CORPUSCULAR HEMOGLOBIN 30 pg (25-34); MEAN CORPUSCULAR HGB CONC 33 g/dL (32-36); MEAN CORPUSCULAR VOLUME 90 fL (80-99); MEAN PLATELET VOLUME 11.5 fL (9.0-12.2); MONOCYTES # (AUTO) 0.3 10^3/uL (0.0-1.0); MONOCYTES % (AUTO) 2 % (0-12); NEUTROPHILS # (AUTO) 11.6 10^3/uL (1.8-7.8); NEUTROPHILS % (AUTO) 89 % (42-75); PLATELET COUNT 193 10^3/uL (130-400)
[2021-01-09] MEDS: RT-ALBUTEROL INHALER HFA (VENTOLIN HFA) 18 GM IH SCH ×6 (02:45→22:24)
[2021-01-09 02:49] LABS: CALCIUM 7.6 MG/DL (8.5-10.1)
[2021-01-09 02:50] LABS: ABG BASE EXCESS -3.9 MMOL/L (-2.5-2.5); ABG OXYGEN SATURATION 96 % (94-100); ABG PCO2 42 MMHG (35-45); ABG PO2 81 MMHG (79-93); ABG TCO2 22.7 MMOL/L (21.0-31.0)
[2021-01-09 02:53] LABS: CREATININE SERUM 1.99 MG/DL (0.60-1.30); PHOSPHORUS 4.8 MG/DL (2.3-4.7)
[2021-01-09 02:54] LABS: ABG PH 7.32 (7.37-7.43); ALLENS TEST YES-POS; PATIENT TEMP 36.2; VENTILATOR YES
[2021-01-09] MEDS: POTASSIUM CL 10MEQ/50ML IVPB 50 ML IV SCH (03:02)
[2021-01-09] MEDS: MAGNESIUM 1 GM/100 ML IVPB 100 ML IV SCH (03:03)
[2021-01-09] MEDS: KCL 20 MEQ TAB (K-DUR) PO SCH (03:03)
[2021-01-09] MEDS: guaiFENesin SYRUP 100 MG/5 ML 10 ML (ROBITUSSIN SF) PO SCH ×6 (04:13→23:33)
[2021-01-09] MEDS: ALBUMIN 25% 25 GM/100 ML 100 ML IV SCH ×2 (05:22→13:48)
[2021-01-09] MEDS: DexMEDEtomidine 250 ML DRIP 250 ML IV SCH ×2 (05:22→22:21)
[2021-01-09 07:04] VITALS: BP 133/63
--- NOTE | 2021-01-09 07:21 | Diagnostic Imaging Report ---
Reason for examination: COVID. Upright AP portable chest was obtained and compared to yesterday. Right IJ central line remains in place. ET tube tip is between the clavicles and saqib. An NG tube is in place but the tip is difficult to visualize. Cardiomediastinal silhouette is unchanged. Bilateral 5 lobe infiltrates consistent with COVID pneumonia. No significant change. No pneumothorax or cavitation. IMPRESSION: 1. Support lines and tubes are in good position where visible. 2. Unchanged bilateral infiltrates. Report was faxed to [facility] Infection Control by mayi at 7:20AM. Dictated by: Dictated on workstation # [id number]
--- NOTE | 2021-01-09 07:56 | Physical Therapy Progress Note ---
Therapy Progress Note Patient intubated and sedated this a.m. PT will continue to monitor patient status and initiate treatment when patient is able to actively participate with skilled therapy. STUART GREEN PT Jan 09, 2021 07:56
[2021-01-09] MEDS: PANTOPRAZOLE 40 MG (PROTONIX) VIAL IV SCH ×2 (08:05→20:24)
[2021-01-09] MEDS: MICONAZOLE 2% POWDER (DESENEX AF) 90 GM TOP SCH ×2 (08:05→20:24)
[2021-01-09] MEDS: MIDAZOLAM DRIP PRE-MIX 100 ML IV SCH ×2 (08:30→21:39)
--- NOTE | 2021-01-09 08:57 | Progress Note ---
Subjective Subjective Date Seen by Provider: Jan 09, 2021 Time Seen by Provider: 18:30 LOUIE IS A 70 Y/O FEMALE WHO IS A NEW PATIENT TO MY PRACTICE OF A FEW MONTHS AGO. SHE HAS HX OF CML, RENAL CARCINOMA STATUS POST NEPHRECTOMY STAFF REPORTS THAT SHE WAS STABLE AFTER PRONING TODAY. Review of Systems ROS Unable to Obtain: INTUBATED, sedated All Other Systems Reviewed All Other Systems Reviewed: Yes Objective Exam Vital Signs Vital Signs - First Documented 01/03/21 01/03/21 01/03/21 00:00 02:32 03:22 Temp 37.3 Pulse 55 Resp 37 B/P (MAP) 166/82 (110) Pulse Ox 95 O2 Delivery NIV Bilevel O2 Flow Rate 70.00 FiO2 100 Capillary Refill : Less Than 3 Seconds General Appearance: Chronically ill, Moderate Distress, Obese HEENT: PERRL/EOMI; No Scleral Icterus (L), No Scleral Icterus (R); Other (dry mucous membranes) Neck: Normal Inspection, Supple Respiratory: Decreased Breath Sounds, Respiratory Distress, Rhonci Cardiovascular: Regular Rate, Rhythm, No Murmur Gastrointestinal: Normal Bowel Sounds, Non Tender, Soft Back: Normal Inspection, No CVA Tenderness, No Vertebral Tenderness Extremity: No Calf Tenderness, Pedal Edema Neurologic/Psychiatric: Other (sedated) Skin: Cool (ON FEET), Mottled (ON HEELS) Results Lab Laboratory Tests 01/08/21 11:30: Glucometer 99 01/08/21 14:25: Sodium Level 138, Potassium Level 5.6H, Chloride Level 108H, Carbon Dioxide Level 17L, Anion Gap 13, Blood Urea Nitrogen 60H, Creatinine 1.95H, Estimat Glomerular Filtration Rate 25, BUN/Creatinine Ratio 31, Glucose Level 116H, Ca lcium Level 7.4L 01/08/21 17:15: Glucometer 112H 01/08/21 19:22: Sodium Level 141, Potassium Level 5.1H, Chloride Level 110H, Carbon Dioxide Level 20L, Anion Gap 11, Blood Urea Nitrogen 62H, Creatinine 2.02H, Estimat Glomerular Filtration Rate 24, BUN/Creatinine Ratio 31, Glucose Level 117H, Calcium Level 7.4L 01/09/21 01:39: White Blood Count 13.0H, Red Blood Count 2.56L, Hemoglobin 7.7L, Hematocrit 23L, Mean Corpuscular Volume 90, Mean Corpuscular Hemoglobin 30, Mean Corpuscular Hemoglobin Concent 33, Red Cell Distribution Width 17.3H, Platelet Count 193, Mean Platelet Volume 11.5, Immature Granulocyte % (Auto) 5, Neutrophils (%) (Auto) 89H, Lymphocytes (%) (Auto) 4L, Monocytes (%) (Auto) 2, Eosinophils (%) (Auto) 0, Basophils (%) (Auto) 0, Neutrophils # (Auto) 11.6H, Lymphocytes # (Auto) 0.5L, Monocytes # (Auto) 0.3, Eosinophils # (Auto) 0.0, Basophils # (Auto) 0.0, Immature Granulocyte # (Auto) 0.6H, Sodium Level 142, Potassium Level 5.0, Chloride Level 110H, Carbon Dioxide Level 20L, Anion Gap 12, Blood Urea Nitrogen 62H, Creatinine 1.99H, Estimat Glomerular Filtration Rate 25, BUN/Creatinine Ratio 31, Glucose Level 111H, Calcium Level 7.6L, Phosphorus Level 4.8H, Magnesium Level 2.0, Triglycerides Level 252H 01/09/21 02:41: Blood Gas Puncture Site L RADIAL, Blood Gas Patient Temperature 36.2, Arterial Blood pH 7.32*L, Arterial Blood Partial Pressure CO2 42, Arterial Blood Partial Pressure O2 81, Arterial Blood HCO3 21L, Arterial Blood Total CO2 22.7, Arterial Blood Oxygen Saturation 96, Arterial Blood Base Excess -3.9L, Nathan Test YES- POS, Blood Gas Ventilator Setting YES, Blood Gas Inspired Oxygen NA Microbiology 01/06/21 Blood Culture - Preliminary, Resulted No growth 01/03/21 Gram Stain - Final, Complete 01/03/21 Sputum Culture - Final, Complete Moraxella catarrhalis Usual upper respiratory viviana 12/29/20 Urine Culture - Final, Complete NO GROWTH Assessment/Plan Assessment/Plan Admission Dx ACUTE HYPOXIC RESPIRATORY FAILURE COVID 19 PULMONARY INFECTION HX OF RENAL CELL CARCINOMA WITH NEPHRECTOMY HYPONATREMIA ACUTE ON CHRONIC RENAL FAILURE (STAGE 4) CHRONIC MYELOGENOUS LEUKEMIA ACUTELY ELEVATED LIVER ENZYMES DUE TO SHOCK MORBID OBESITY Assessment and Plan ACUTE HYPOXIC RESPIRATORY FAILURE COVID 19 PULMONARY INFECTION HX OF RENAL CELL CARCINOMA WITH NEPHRECTOMY HYPONATREMIA ACUTE ON CHRONIC RENAL FAILURE (STAGE 4) CHRONIC MYELOGENOUS LEUKEMIA ACUTELY ELEVATED LIVER ENZYMES DUE TO SHOCK MORBID OBESITY ACUTE HYPOXIC RESPIRATORY FAILURE DUE TO COVID 19 PULMONARY INFECTION WITH PNEUMONIA - PT ON DECADRON, RECEIVED CONVALESCENT PLASMA - CANNOT BE ON REMDESIVIR DUE TO HER LIVER FUNCTION AND RENAL FUNCTION. - E-ICU ON CONSULT FOR THIS PATIENT WITH PULMONARY CRITICAL CARE PHYSICIANS ROUNDING ON THE PATIENT VIRTUALLY. - PT MECHANICALLY VENTILATED - WHITE COUNT IMPROVED ANEMIA - HGB DECREASED - WILL REPEAT IN MORNING - MAY NEED BLOOD TRANSFUSION TOMORROW IF HGB DROPS BELOW 7 HX OF RENAL CELL CARCINOMA WITH NEPHRECTOMY AND ACUTE ON CHRONIC RENAL FAILURE (STAGE 4) - SUPPORTIVE CARE ONLY AT THIS TIME, RENAL ADJUSTMENT OF MEDICATIONS, IV FLUIDS. HYPONATREMIA - REPLENISHED WITH IV FLUIDS. - MONITOR LABS, REPLACE NEEDED. CHRONIC MYELOGENOUS LEUKEMIA - HOLDING GLEEVAC AT THIS TIME. ACUTELY ELEVATED LIVER ENZYMES DUE TO SHOCK AND COVID INFECTION - FLUIDS, SUPPORTIVE CARE, MONITOR LABS CLOSELY. - CANNOT GIVE REMDESIVIR DUE TO LIVER FAILURE MORBID OBESITY - WILL NEED TO BE ASSISTED WITH MOVEMENTS/PRONING, ETC. DISCUSSED WITH HER NIECE BRITTANY TODAY - SHE WOULD LIKE TO HAVE A DISCUSSION OF FUTURE PLANS FOR THE PATIENT, WILL NEED TO DISCUSS POSSIBLE TERMINAL EXTUBATION - PT'S NIECE DOES NOT WANT TO BE THE ONE TO MAKE THAT DECISION, SHE WOULD LIKE FOR THIS TO BE A MEDICAL PROVIDER DECISION BASED ON BEST CASE/WORST CASE SCENARIO FOR THE PATIENT. DVT PROPHYLAXIS WITH LOVENOX Problems: (1) Acute respiratory failure Qualifiers: Qualified Codes: J96.01 - Acute respiratory failure with hypoxia (2) Abnormal liver function (3) Acute kidney injury (4) Pneumonia due to COVID-19 virus (5) Hyponatremia Assessment & Plan: improved (6) CML (chronic myelocytic leukemia) (7) Renal cell carcinoma Admission Dx ACUTE HYPOXIC RESPIRATORY FAILURE COVID 19 PULMONARY INFECTION HX OF RENAL CELL CARCINOMA WITH NEPHRECTOMY HYPONATREMIA ACUTE ON CHRONIC RENAL FAILURE (STAGE 4) CHRONIC MYELOGENOUS LEUKEMIA ACUTELY ELEVATED LIVER ENZYMES DUE TO SHOCK MORBID OBESITY Clinical Quality Measures Admission Status Admission Dx ACUTE HYPOXIC RESPIRATORY FAILURE COVID 19 PULMONARY INFECTION HX OF RENAL CELL CARCINOMA WITH NEPHRECTOMY HYPONATREMIA ACUTE ON CHRONIC RENAL FAILURE (STAGE 4) CHRONIC MYELOGENOUS LEUKEMIA ACUTELY ELEVATED LIVER ENZYMES DUE TO SHOCK MORBID OBESITY SAMAN RAI MD Jan 09, 2021 08:56
--- NOTE | 2021-01-09 10:05 | Tele-ICU Progress Note ---
Subjective Date Seen by a Provider: Jan 09, 2021 Time Seen by a Provider: 10:05 Sepsis Event Evaluation Height, Weight, BMI Height: '" Weight: lbs. oz. kg; 41.18 BMI Method:Stated Exam Exam Patient acknowledged, consented, and participated in this virtual visit which was conducted using real time audio/video Vital Signs Date Time Temp Pulse Resp B/P (MAP) Pulse Ox O2 Delivery O2 Flow Rate FiO2 01/09/21 08:30 65 28 133/63 01/09/21 08:04 36.1 01/09/21 08:00 36.2 01/09/21 07:04 65 28 92 80 01/09/21 07:00 65 01/09/21 06:00 66 30 135/62 (86) 92 Mechanical Ventilator 80.00 01/09/21 05:22 64 01/09/21 05:21 137/65 01/09/21 05:00 64 28 137/65 (89) 92 Mechanical Ventilator 80.00 01/09/21 04:00 64 28 139/65 (89) 92 Mechanical Ventilator 80.00 01/09/21 03:54 36.2 01/09/21 03:03 Mechanical Ventilator 80 01/09/21 03:00 64 27 143/67 (92) 94 Mechanical Ventilator 80.00 01/09/21 02:34 65 28 94 80 01/09/21 02:00 65 29 135/70 (91) 94 Mechanical Ventilator 80.00 01/09/21 01:00 70 01/09/21 01:00 67 29 132/63 (86) 92 Mechanical Ventilator 80.00 01/09/21 00:45 121/62 01/09/21 00:00 36.9 71 30 120/60 (80) 95 Mechanical Ventilator 80.00 01/08/21 23:43 Mechanical Ventilator 80.00 01/08/21 23:41 Mechanical Ventilator 90.00 01/08/21 23:41 Mechanical Ventilator 60 01/08/21 23:32 Mechanical Ventilator 100.00 01/08/21 23:00 37.0 71 30 128/64 (85) 91 Mechanical Ventilator 60.00 01/08/21 22:00 37.0 75 29 126/63 (84) 92 Mechanical Ventilator 60.00 01/08/21 21:25 73 28 93 60 01/08/21 21:00 37.0 72 28 114/61 (78) 92 Mechanical Ventilator 60.00 01/08/21 20:31 118/60 01/08/21 20:00 37.0 72 29 117/61 (79) 92 Mechanical Ventilator 60.00 01/08/21 19:31 Mechanical Ventilator 60 01/08/21 19:27 Mechanical Ventilator 60.00 01/08/21 19:00 37.0 74 28 120/59 (79) 96 Mechanical Ventilator 55.00 01/08/21 19:00 76 01/08/21 18:53 75 18 94 60 01/08/21 18:00 36.9 80 27 132/57 (82) 92 Mechanical Ventilator 55.00 01/08/21 17:45 36.9 01/08/21 17:00 36.9 92 30 149/67 (94) 94 Mechanical Ventilator 55.00 01/08/21 16:27 Mechanical Ventilator 65 01/08/21 16:00 36.7 87 30 139/63 (88) 94 Mechanical Ventilator 55.00 01/08/21 15:53 35.6 01/08/21 15:00 36.6 87 32 123/57 (79) 92 Mechanical Ventilator 55.00 01/08/21 14:27 80 18 95 55 01/08/21 14:00 36.6 81 30 116/53 (74) 88 Mechanical Ventilator 55.00 01/08/21 13:48 80 27 142/72 01/08/21 13:48 80 142/72 01/08/21 13:00 36.5 80 30 124/63 (83) 92 Mechanical Ventilator 55.00 01/08/21 12:30 Mechanical Ventilator 65 01/08/21 12:27 80 01/08/21 12:06 55.00 01/08/21 12:00 36.5 80 28 132/66 (88) 94 Mechanical Ventilator 70.00 01/08/21 11:57 79 129/66 01/08/21 11:00 Mechanical Ventilator 60.00 01/08/21 11:00 36.4 76 29 141/69 (93) 93 Mechanical Ventilator 70.00 01/08/21 10:57 77 29 93 65 I & O 01/09/21 07:00 Intake Total 2850 ml Output Total 1475 ml Balance 1375 ml Height & Weight Height: '" Weight: lbs. oz. kg; 41.18 BMI Method:Stated General Appearance: Chronically ill, Moderate Distress, Obese HEENT: PERRL/EOMI; No Scleral Icterus (L), No Scleral Icterus (R); Other (dry mucous membranes) Neck: Normal Inspection, Supple Respiratory: Decreased Breath Sounds, Respiratory Distress, Rhonci Cardiovascular: Regular Rate, Rhythm, No Murmur Capillary Refill: Less Than 3 Seconds Gastrointestinal: non tender, soft, other (decreased BS) Extremity: No Calf Tenderness, Pedal Edema Neurologic/Psychiatric: Other (sedated) Skin: Cool (ON FEET), Mottled (ON HEELS) Results Lab Laboratory Tests 01/08/21 02:11 01/08/21 14:25 01/08/21 19:22 01/09/21 01:39 Assessment/Plan Assessment/Plan Discussed with RN Events overnight : proned til 4 am - dropped BP when turned supine Afebrile , BP low this am no pressors, I/O =pos 400 Drips: propofol 20 , versed 5 , precedex ,levo OFF As per RN exam : sedated ., moves spontaneously RASS-3 Consultants: Hospital course: 12/29- admitte dwith COVID PNA on remdesivir and decadraon, d dimer 3, on once a day Lovenox 12/31 vapotherm 40 lpm FiO2 100% - RR 20 - 40 12/31- intubated 01/01 - self-extubated , spont RR 36, BiPAP 22/01 FiO2 70% 01/02 - can not tolerate BIPAP , started precedex - > back to vapotherm 40 lpm FiO2 90% (01/03) Re-intubated 01/06 - 100% peep 14 , hypotensive - levo started , lasix gtt started 01/07 - stopped lasix with ? cr , peep 14 100% 01/08 70% peep 14 01/09 - off pressors , but ?fio2 to 80 , LOOSE STOOLS , OFF ABX ECHO 12/31 - EF 70% , RVSP 45 mmHg A/P Acute resp failure , Covid PNA PC Vent 80% peep 14 rr 18 ( spon 25) 350 - PAP 35 - keep neg balance KEEP PRONING - sedation propofol - TLG 230 on 01.06 , 296 on 01/07 - will try to wean off - versed gtt 01/06 -RASS -3 , no sedation vacation with high O2 need COVID PNA - remdesiivir - 12/30 - remdesivir off with ? Cr - decadron 6 iv -START TO TITRATE DOWN - Heparin sQ - on hold for possible GIB 01/06 - is stable HB consider to resume tomorrow Shock - on levo - also with increased WBC consider new infection Pneumomediastinum 01/04 cxr - Sq emphesema same exam as per RN report . cxr 01/06 improved - will follow with cxr Leukocytosis - 12/29 - coag neg staph 07/13, urine MRSA swab neg , sputum 12/31 -, sputum 01/03 - moraxella - z max 01/03- 01/09 - OFF ABX NOW - follow - Hyponatremia - admitted 118 12/29 =>12/31 to 127 - 01/02 - normalized - cont to monitor ELZA - admit Cr 3, slow improving to 1.5 - gentle diuresis with lasix on 01/06 - no improvement in Fio2 , but Cr rising again off diuresis-> goal to keep even , also will give albumin trnafusion as volume expansion - hyperK on 01/08 -Tx -ed , stable now Cr and K Coffee grounds in NG 01/06 - TF on hold, on LIS x24 h - pink minmal secretions - 01/09 WITH ? hB WILL START LIS AGAIN AND FOLLOW CLOSELY - PPI BID Transaminases -LFT's are elevated, need to be monitored-normalized - off remdesivir , probably due to COVID Lines : R IJ 12/29 (Central Line Necessity Reviewed) Shaw: RN feels needed due to drop in SpO2 when gets out of bed OG: + Nutrition: TF on hold last 24 h Analgesia: na Anxiety/ delirium na VTE Prophylaxis: hep 5K q8 - on hols 01/06 for possible GIB - NEED TO RESUME IN FUTURE Stress Ulcer Prophylaxis: PPI BID Glycemic Control: + Plans in collaboration with bedside consultants and IM MDs. Discussed with RN to reach out if any questions or concerns A total of 36 minutes of critical care time was devoted to this patient today, required to treat and/or prevent further deterioration of critical care condition ( as above ) . ALENA CRAVEN MD Jan 09, 2021 10:05
[2021-01-09 10:30] VITALS: BP 146/64
[2021-01-09] MEDS ORDERED: ROCURONIUM 10 MG/ML 5 ML SYRINGE IV ONE ×2 (10:30)
[2021-01-09 14:26] VITALS: BP 160/72
[2021-01-09] MEDS: LACTATED RINGERS 1,000 ML IV SCH (17:55)
[2021-01-09 18:55] VITALS: BP 160/77
[2021-01-09 22:25] VITALS: BP 155/82
[2021-01-10] VITALS (7 sets, daily range): BP systolic 115–163; BP diastolic 52–87
[2021-01-10] MEDS: guaiFENesin SYRUP 100 MG/5 ML 10 ML (ROBITUSSIN SF) PO SCH ×5 (00:24→20:03)
[2021-01-10] MEDS: RT-ALBUTEROL INHALER HFA (VENTOLIN HFA) 18 GM IH SCH ×6 (02:09→21:22)
[2021-01-10] MEDS ORDERED: ROCURONIUM 10 MG/ML 5 ML SYRINGE IV ONE ×2 (03:30→03:45)
[2021-01-10] MEDS: PROPOFOL DRIP (ICU) 100 ML IV SCH ×5 (03:33→20:02)
[2021-01-10 05:09] LABS: BASOPHILS % (AUTO) 0 % (0-10); EOSINOPHILS % (AUTO) 0 % (0-10); HEMATOCRIT 24 % (35-52); HEMOGLOBIN 7.9 g/dL (11.5-16.0); LYMPHOCYTES # (AUTO) 0.7 10^3/uL (1.0-4.0); LYMPHOCYTES % (AUTO) 5 % (12-44); MEAN CORPUSCULAR HEMOGLOBIN 30 pg (25-34); MEAN CORPUSCULAR HGB CONC 32 g/dL (32-36); MEAN CORPUSCULAR VOLUME 94 fL (80-99); MEAN PLATELET VOLUME 10.9 fL (9.0-12.2); MONOCYTES # (AUTO) 0.4 10^3/uL (0.0-1.0); MONOCYTES % (AUTO) 3 % (0-12); NEUTROPHILS # (AUTO) 11.4 10^3/uL (1.8-7.8); NEUTROPHILS % (AUTO) 85 % (42-75); PLATELET COUNT 175 10^3/uL (130-400); WHITE BLOOD COUNT 13.4 10^3/uL (4.3-11.0)
[2021-01-10 05:11] LABS: ABG BASE EXCESS -4.5 MMOL/L (-2.5-2.5); ABG OXYGEN SATURATION 92 % (94-100); ABG PCO2 55 MMHG (35-45); ABG PO2 72 MMHG (79-93); ABG TCO2 23.9 MMOL/L (21.0-31.0)
[2021-01-10 05:15] LABS: ALLENS TEST YES-POS; INSPIRED O2 70%; PATIENT TEMP 36.2; VENTILATOR YES
[2021-01-10 05:26] LABS: ABG PH 7.22 (7.37-7.43)
[2021-01-10 05:33] LABS: POTASSIUM 4.8 MMOL/L (3.6-5.0)
[2021-01-10 05:34] LABS: CALCIUM 7.5 MG/DL (8.5-10.1)
[2021-01-10 05:39] LABS: BAND NEUTROPHILS 4 %; CREATININE SERUM 1.86 MG/DL (0.60-1.30); LYMPHOCYTES % (MANUAL) 10 %; MONOCYTES % (MANUAL) 2 %; NEUTROPHILS % (MANUAL) 83 %; PHOSPHORUS 5.1 MG/DL (2.3-4.7)
[2021-01-10] MEDS: KCL 20 MEQ TAB (K-DUR) PO SCH (06:11)
[2021-01-10] MEDS: POTASSIUM CL 10MEQ/50ML IVPB 50 ML IV SCH (06:11)
[2021-01-10] MEDS: MAGNESIUM 1 GM/100 ML IVPB 100 ML IV SCH (06:11)
--- NOTE | 2021-01-10 08:21 | Diagnostic Imaging Report ---
EXAMINATION: Chest 1 view HISTORY: COVID positive, intubated COMPARISON: 01/09/2021 FINDINGS: Heart size and pulmonary vasculature are stable. Stable patchy interstitial and airspace opacities seen throughout both lungs. No pneumothorax. Medical support lines and tubes are unchanged. The osseous structures are intact. IMPRESSION: 1. Stable patchy interstitial airspace opacities compared to 01/09/2021. Dictated by: Dictated on workstation # [id number]
[2021-01-10] MEDS: PANTOPRAZOLE 40 MG (PROTONIX) VIAL IV SCH ×2 (08:42→20:03)
[2021-01-10] MEDS: MICONAZOLE 2% POWDER (DESENEX AF) 90 GM TOP SCH ×2 (08:42→20:04)
--- NOTE | 2021-01-10 09:04 | Tele-ICU Progress Note ---
Subjective Date Seen by a Provider: Jan 10, 2021 Time Seen by a Provider: 09:30 Subjective/Events-last exam COVID + FiO2 70% same, other vent settings- PCRV 18, Vt 350, PEEP 14, SpO2 91%, getting pronned, drops SpO2 when suctionid into mid 80's, getting IV Propofol @ 25 Precedex at 0.5, IV Versed 6, RASS -3 Peak Paw 30's No pressors, CXR shows increased HS, bilateral GGO, ET ok, probable bilateral pleural effusions intubated 12/31, self extubated, re intubated since 01/03 still on IV Decadron Review of Systems General: Other (sedated) HEENT: No Head Aches, No Eye Pain, No Ear Pain, No Dysphasia, No Sinus Congestion, No Post Nasal Drip, No Sore Throat Pulmonary: Dyspnea, Cough Cardiovascular: No: Chest Pain, Palpitations, Orthopnea, Paroxysmal Noc. Dyspnea, Edema, Lt Headedness Gastrointestinal: No: Nausea, Vomiting, Abdominal Pain, Diarrhea, Constipation, Melena, Hematochezia Genitourinary: No Dysuria, No Frequency, No Incontinence, No Hematuria, No Retention Musculoskeletal: No: other, neck pain, shoulder pain, arm pain, back pain, hand pain, leg pain, foot pain Neurological: No: Weakness, Numbness, Incoordination, Change in speech, Confusion, Seizures, Other Sepsis Event Evaluation Height, Weight, BMI Height: '" Weight: lbs. oz. kg; 41.18 BMI Method:Stated Exam Exam Patient acknowledged, consented, and participated in this virtual visit which was conducted using real time audio/video Vital Signs Date Time Temp Pulse Resp B/P (MAP) Pulse Ox O2 Delivery O2 Flow Rate FiO2 01/10/21 08:47 62 111/59 01/10/21 08:00 62 19 115/64 (81) 94 Mechanical Ventilator 70.00 01/10/21 08:00 35.0 01/10/21 07:00 63 01/10/21 07:00 63 21 124/63 (83) 93 Mechanical Ventilator 70.00 01/10/21 06:59 64 21 94 70 01/10/21 06:00 58 19 136/70 (92) 93 Mechanical Ventilator 70.00 01/10/21 05:00 60 21 138/73 (94) 94 Mechanical Ventilator 70.00 01/10/21 04:50 36.2 01/10/21 04:29 Mechanical Ventilator 70 01/10/21 04:00 63 18 135/72 (93) 92 Mechanical Ventilator 70.00 01/10/21 03:48 35.3 53 93 01/10/21 03:33 151/82 01/10/21 03:00 54 18 144/72 (96) 94 Mechanical Ventilator 70.00 01/10/21 02:09 53 18 93 70 01/10/21 02:00 53 17 163/83 (109) 94 Mechanical Ventilator 70.00 01/10/21 01:00 53 18 162/74 (103) 93 Mechanical Ventilator 70.00 01/10/21 01:00 53 01/10/21 00:17 35.3 01/10/21 00:00 55 18 162/80 (107) 94 Mechanical Ventilator 70.00 01/10/21 00:00 57 155/82 01/09/21 23:34 94 Mechanical Ventilator 70 01/09/21 23:00 55 18 164/77 (106) 94 Mechanical Ventilator 70.00 01/09/21 22:25 57 18 95 70 01/09/21 22:21 57 153/79 01/09/21 22:00 57 17 160/80 (106) 94 Mechanical Ventilator 70.00 01/09/21 21:39 57 153/79 01/09/21 21:00 59 17 154/81 (105) 94 Mechanical Ventilator 70.00 01/09/21 20:30 94 Mechanical Ventilator 70 01/09/21 20:23 60 18 168/79 (108) 95 Mechanical Ventilator 70.00 01/09/21 20:00 61 17 165/79 (107) 95 Mechanical Ventilator 80.00 01/09/21 19:59 36.5 01/09/21 19:35 36.7 01/09/21 19:00 62 01/09/21 19:00 62 17 164/79 (107) 94 Mechanical Ventilator 80.00 01/09/21 18:55 63 18 95 75 01/09/21 18:00 64 17 161/78 (105) 94 Mechanical Ventilator 80.00 01/09/21 17:55 63 159/74 01/09/21 17:46 37.0 01/09/21 17:00 61 18 159/74 (102) 94 Mechanical Ventilator 80.00 01/09/21 16:29 Mechanical Ventilator 80 01/09/21 16:00 63 19 161/75 (103) 93 Mechanical Ventilator 80.00 01/09/21 15:36 36.2 01/09/21 15:00 66 19 159/75 (103) 92 Mechanical Ventilator 80.00 01/09/21 14:26 67 20 92 75 01/09/21 14:00 68 19 160/72 (101) 90 Mechanical Ventilator 80.00 01/09/21 13:48 65 143/65 01/09/21 13:00 65 01/09/21 13:00 70 18 155/73 (100) 92 Mechanical Ventilator 80.00 01/09/21 12:15 Mechanical Ventilator 80 01/09/21 12:03 71 143/65 01/09/21 12:00 71 19 148/68 (94) 92 Mechanical Ventilator 80.00 01/09/21 11:40 35.9 01/09/21 11:00 73 15 140/66 (90) 91 Mechanical Ventilator 80.00 01/09/21 10:30 72 20 92 80 01/09/21 10:00 65 28 150/69 (96) 93 Mechanical Ventilator 80.00 I & O 01/10/21 07:00 Intake Total 0 ml Output Total 1050 ml Balance -1050 ml Height & Weight Height: '" Weight: lbs. oz. kg; 41.18 BMI Method:Stated General Appearance: Chronically ill, Moderate Distress, Obese HEENT: PERRL/EOMI; No Scleral Icterus (L), No Scleral Icterus (R); Other (dry mucous membranes) Neck: Normal Inspection, Supple Respiratory: Decreased Breath Sounds, Respiratory Distress, Rhonci Cardiovascular: Regular Rate, Rhythm, No Murmur Capillary Refill: Less Than 3 Seconds Gastrointestinal: normal bowel sounds, non tender, soft, other (decreased BS) Extremity: Normal Capillary Refill, No Calf Tenderness, Pedal Edema Neurologic/Psychiatric: Other (sedated) Skin: Cool (ON FEET), Mottled (ON HEELS) Results Lab Laboratory Tests 01/08/21 14:25 01/08/21 19:22 01/09/21 01:39 01/10/21 04:48 Assessment/Plan Assessment/Plan Discussed with RN Events overnight : proned til 4 am - dropped BP when turned supine Afebrile , BP low this am no pressors, I/O =pos 400 Drips: propofol 20 , versed 5 , precedex ,levo OFF As per RN exam : sedated ., moves spontaneously RASS-3 Consultants: O Hospital course: 12/29- admitte dwith COVID PNA on remdesivir and decadraon, d dimer 3, on once a day Lovenox 12/31 vapotherm 40 lpm FiO2 100% - RR 20 - 40 12/31- intubated 01/01 - self-extubated , spont RR 36, BiPAP 14/7 FiO2 70% 01/02 - can not tolerate BIPAP , started precedex - > back to vapotherm 40 lpm FiO2 90% (01/03) Re-intubated 01/06 - 100% peep 14 , hypotensive - levo started , lasix gtt started 01/07 - stopped lasix with ? cr , peep 14 100% 01/08 70% peep 14 01/09 - off pressors , but fio2 to 80 , LOOSE STOOLS , OFF ABX ECHO 12/31 - EF 70% , RVSP 45 mmHg A/P Acute resp failure , Covid PNA PC Vent 80% peep 14 rr 18 ( spon 25) 350 - PAP 35 - keep neg balance KEEP PRONING - sedation propofol - TLG 230 on 01.06 , 296 on 01/07 - will try to wean off - versed gtt 01/06 -RASS -3 , no sedation vacation with high O2 need COVID PNA - remdesiivir - 12/30 - remdesivir off with ? Cr - decadron 6 iv -START TO TITRATE DOWN - Heparin sQ - on hold for possible GIB 01/06 - is stable HB consider to resume tomorrow Shock - on levo - also with increased WBC consider new infection Pneumomediastinum 01/04 cxr - Sq emphesema same exam as per RN report . cxr 01/06 improved - will follow with cxr Leukocytosis - 12/29 - coag neg staph 07/13, urine MRSA swab neg , sputum 12/31 -, sputum 01/03 - moraxella - z max 01/03- 01/09 - OFF ABX NOW - follow - Hyponatremia Page 1 of 2 LOUIE LEONG [facility] - [facility] This is a permanent part of the medical record. Do not discard. admitted 118 12/29 =>12/31 to 127 - 01/02 - normalized - cont to monitor ELZA - admit Cr 3, slow improving to 1.5 - gentle diuresis with lasix on 01/06 - no improvement in Fio2 , but Cr rising again off diuresis-> goal to keep even , also will give albumin trnafusion as volume expansion - hyperK on 01/08 -Tx -ed , stable now Cr and K Coffee grounds in NG 01/06 - TF on hold, on LIS x24 h - pink minmal secretions - 01/09 WITH hB WILL START LIS AGAIN AND FOLLOW CLOSELY - PPI BID Transaminases -LFT's are elevated, need to be monitored-normalized - off remdesivir , probably due to COVID Lines : R IJ 12/29 (Central Line Necessity Reviewed) Shaw: RN feels needed due to drop in SpO2 when gets out of bed OG: + Nutrition: TF on hold last 24 h Analgesia: na Anxiety/ delirium na VTE Prophylaxis: hep 5K q8 - on hols 01/06 for possible GIB - NEED TO RESUME IN FUTURE Stress Ulcer Prophylaxis: PPI BID Glycemic Control: 01/09/2021 10:20 THC Physician - Brief Progress Note Still needs high vent support will continue, same vent settings, sedation and IV decadron, pronning does not appear to be helpful, will stop outlook very guarded, will check LFT's, Cr a little better Critical Care: Critically Ill Patient Time spent with patient (mins): 35 ANANYA ALMAZAN MD Jan 10, 2021 09:04
[2021-01-10] MEDS: NOREPINEPHRINE 8 MG/250 ML 250 ML IV SCH ×2 (12:19→22:17)
--- NOTE | 2021-01-10 13:42 | Progress Note ---
Subjective Subjective Date Seen by Provider: Jan 10, 2021 Time Seen by Provider: 11:00 LOUIE IS A 70 Y/O FEMALE WHO IS A NEW PATIENT TO MY PRACTICE OF A FEW MONTHS AGO. SHE HAS HX OF CML, RENAL CARCINOMA STATUS POST NEPHRECTOMY STAFF REPORTS THAT SHE IS NO LONGER ABLE TO BE PLACED IN A PRONE POSITION DUE TO INSTABILITY. ABG pH 7.22, pCO2 55, pO2 72, HCO3 22, O2 SAT 92% Review of Systems ROS Unable to Obtain: INTUBATED, sedated General: Other (sedated) HEENT: No Head Aches, No Eye Pain, No Ear Pain, No Dysphasia, No Sinus Congestion, No Post Nasal Drip, No Sore Throat Pulmonary: Dyspnea, Cough Cardiovascular: No: Chest Pain, Palpitations, Orthopnea, Paroxysmal Noc. Dyspnea, Edema, Lt Headedness Gastrointestinal: No: Nausea, Vomiting, Abdominal Pain, Diarrhea, Constipation, Melena, Hematochezia Genitourinary: No Dysuria, No Frequency, No Incontinence, No Hematuria, No Retention Musculoskeletal: No: other, neck pain, shoulder pain, arm pain, back pain, hand pain, leg pain, foot pain Neurological: No: Weakness, Numbness, Incoordination, Change in speech, Confusion, Seizures, Other All Other Systems Reviewed All Other Systems Reviewed: Yes Objective Exam Vital Signs Vital Signs - First Documented 01/04/21 01/04/21 01/04/21 00:00 02:14 03:28 Temp 36.9 Pulse 80 Resp 24 B/P (MAP) 154/74 (100) Pulse Ox 94 O2 Delivery Mechanical Ventilator O2 Flow Rate 80.00 FiO2 70 Capillary Refill : Less Than 3 Seconds General Appearance: Chronically ill, Moderate Distress, Obese HEENT: No Scleral Icterus (L), No Scleral Icterus (R); Other (dry mucous membranes) Neck: Normal Inspection, Supple Respiratory: Crackles (BASE), Decreased Breath Sounds, Respiratory Distress, Rhonci Cardiovascular: Regular Rate, Rhythm, No Murmur Gastrointestinal: Normal Bowel Sounds, Non Tender, Soft Extremity: No Calf Tenderness, Pedal Edema Neurologic/Psychiatric: Other (sedated) Skin: Cool (ON FEET) Results Lab Laboratory Tests 01/09/21 17:46: Glucometer 131H 01/10/21 04:48: White Blood Count 13.4H, Red Blood Count 2.60L, Hemoglobin 7.9L, Hematocrit 24L, Mean Corpuscular Volume 94, Mean Corpuscular Hemoglobin 30, Mean Corpuscular Hemoglobin Concent 32, Red Cell Distribution Width 17.8H, Platelet Count 175, Mean Platelet Volume 10.9, Immature Granulocyte % (Auto) 7, Neutrophils (%) (Auto) 85H, Lymphocytes (%) (Auto) 5L, Monocytes (%) (Auto) 3, Eosinophils (%) (Auto) 0, Basophils (%) (Auto) 0, Neutrophils # (Auto) 11.4H, Lymphocytes # (Auto) 0.7L, Monocytes # (Auto) 0.4, Eosinophils # (Auto) 0.0, Basophils # (Auto) 0.0, Immature Granulocyte # (Auto) 0.9H, Neutrophils % (Manual) 83, Lymphocytes % (Manual) 10, Monocytes % (Manual) 2, Band Neutrophils 4, Sodium Level 140, Potassium Level 4.8, Chloride Level 108H, Carbon Dioxide Level 20L, Anion Gap 12, Blood Urea Nitrogen 63H, Creatinine 1.86H, Estimat Glomerular Filtration Rate 27, BUN/Creatinine Ratio 34, Glucose Level 109H, Calcium Level 7.5L, Phosphorus Level 5.1H, Magnesium Level 2.0 01/10/21 05:05: Blood Gas Puncture Site R RADIAL, Blood Gas Patient Temperature 36.2, Arterial Blood pH 7.22*L, Arterial Blood Partial Pressure CO2 55H, Arterial Blood Partial Pressure O2 72L, Arterial Blood HCO3 22L, Arterial Blood Total CO2 23.9, Arterial Blood Oxygen Saturation 92L, Arterial Blood Base Excess -4.5L, Nathan Test YES-POS, Blood Gas Ventilator Setting YES, Blood Gas Inspired Oxygen 70% 01/10/21 11:50: Glucometer 105 Microbiology 01/06/21 Blood Culture - Preliminary, Resulted No growth 01/03/21 Gram Stain - Final, Complete 01/03/21 Sputum Culture - Final, Complete Moraxella catarrhalis Usual upper respiratory viviana 12/29/20 Urine Culture - Final, Complete NO GROWTH Assessment/Plan Assessment/Plan Admission Dx ACUTE HYPOXIC RESPIRATORY FAILURE COVID 19 PULMONARY INFECTION HX OF RENAL CELL CARCINOMA WITH NEPHRECTOMY HYPONATREMIA ACUTE ON CHRONIC RENAL FAILURE (STAGE 4) CHRONIC MYELOGENOUS LEUKEMIA ACUTELY ELEVATED LIVER ENZYMES DUE TO SHOCK MORBID OBESITY Assessment and Plan ACUTE HYPOXIC RESPIRATORY FAILURE COVID 19 PULMONARY INFECTION HX OF RENAL CELL CARCINOMA WITH NEPHRECTOMY HYPONATREMIA ACUTE ON CHRONIC RENAL FAILURE (STAGE 4) CHRONIC MYELOGENOUS LEUKEMIA ACUTELY ELEVATED LIVER ENZYMES DUE TO SHOCK MORBID OBESITY ACUTE HYPOXIC RESPIRATORY FAILURE DUE TO COVID 19 PULMONARY INFECTION WITH PNEUMONIA - PT ON DECADRON, RECEIVED CONVALESCENT PLASMA - CANNOT BE ON REMDESIVIR DUE TO HER LIVER FUNCTION AND RENAL FUNCTION. - E-ICU ON CONSULT FOR THIS PATIENT WITH PULMONARY CRITICAL CARE PHYSICIANS ROUNDING ON THE PATIENT VIRTUALLY. - PT MECHANICALLY VENTILATED - WHITE COUNT IMPROVED - DECADRON DOSE DECREASED - CXR WORSENING IN APPEARANCE. ANEMIA - HGB DECREASED - WILL REPEAT IN MORNING - MAY NEED BLOOD TRANSFUSION IF HGB DROPS BELOW 7 HX OF RENAL CELL CARCINOMA WITH NEPHRECTOMY AND ACUTE ON CHRONIC RENAL FAILURE (STAGE 4) - SUPPORTIVE CARE ONLY AT THIS TIME, RENAL ADJUSTMENT OF MEDICATIONS, IV FLUIDS. HYPONATREMIA - REPLENISHED WITH IV FLUIDS. - MONITOR LABS, REPLACE NEEDED. CHRONIC MYELOGENOUS LEUKEMIA - HOLDING GLEEVAC AT THIS TIME. ACUTELY ELEVATED LIVER ENZYMES DUE TO SHOCK AND COVID INFECTION - FLUIDS, SUPPORTIVE CARE, MONITOR LABS CLOSELY. - CANNOT GIVE REMDESIVIR DUE TO LIVER FAILURE MORBID OBESITY - WILL NEED TO BE ASSISTED WITH MOVEMENTS/PRONING, ETC. DISCUSSED WITH EICU PROVIDER DR. ALMAZAN AND THEN WITH HER NIECE CHRISTINE - THE PLAN WILL BE FOR PT TO STAY INTUBATED FOR NOW, WILL RE-EVALUATE HER STATUS ON WEDNESDAY OF NEXT WEEK TO MAKE THE DETERMINATION TO IF WE WILL BE PLACING A TRACHEOSTOMY TUBE AND THEN MAKING PLANS FOR TRANSFER TO A LONG-TERM CARE HOSPITAL VERSUS DISCUSSING TERMINAL EXTUBATION. FAMILY IS AWARE OF HOW GRAVELY ILL THE PT IS AND HOW TENUOUS OUR PLANS ARE AT THIS TIME PENDING CHANGES IN PT STATUS. DVT PROPHYLAXIS WITH LOVENOX Problems: (1) Acute respiratory failure Qualifiers: Qualified Codes: J96.01 - Acute respiratory failure with hypoxia (2) Abnormal liver function (3) Acute kidney injury (4) Pneumonia due to COVID-19 virus (5) Hyponatremia Assessment & Plan: improved (6) CML (chronic myelocytic leukemia) (7) Renal cell carcinoma Admission Dx ACUTE HYPOXIC RESPIRATORY FAILURE COVID 19 PULMONARY INFECTION HX OF RENAL CELL CARCINOMA WITH NEPHRECTOMY HYPONATREMIA ACUTE ON CHRONIC RENAL FAILURE (STAGE 4) CHRONIC MYELOGENOUS LEUKEMIA ACUTELY ELEVATED LIVER ENZYMES DUE TO SHOCK MORBID OBESITY Clinical Quality Measures Admission Status Admission Dx ACUTE HYPOXIC RESPIRATORY FAILURE COVID 19 PULMONARY INFECTION HX OF RENAL CELL CARCINOMA WITH NEPHRECTOMY HYPONATREMIA ACUTE ON CHRONIC RENAL FAILURE (STAGE 4) CHRONIC MYELOGENOUS LEUKEMIA ACUTELY ELEVATED LIVER ENZYMES DUE TO SHOCK MORBID OBESITY SAMAN RAI MD Jan 10, 2021 13:42
[2021-01-10] MEDS: MIDAZOLAM DRIP PRE-MIX 100 ML IV SCH (14:03)
[2021-01-10] MEDS: LACTATED RINGERS 1,000 ML IV SCH (14:03)
[2021-01-10] MEDS: DexMEDEtomidine 250 ML DRIP 250 ML IV SCH (14:54)
[2021-01-11] MEDS: guaiFENesin SYRUP 100 MG/5 ML 10 ML (ROBITUSSIN SF) PO SCH ×7 (00:12→23:45)
[2021-01-11] MEDS: PROPOFOL DRIP (ICU) 100 ML IV SCH ×4 (01:30→16:54)
[2021-01-11 02:07] VITALS: BP 118/49
[2021-01-11] MEDS: RT-ALBUTEROL INHALER HFA (VENTOLIN HFA) 18 GM IH SCH ×6 (02:07→22:17)
[2021-01-11] MEDS: POTASSIUM CL 10MEQ/50ML IVPB 50 ML IV SCH (02:18)
[2021-01-11] MEDS: MAGNESIUM 1 GM/100 ML IVPB 100 ML IV SCH (02:18)
[2021-01-11] MEDS: KCL 20 MEQ TAB (K-DUR) PO SCH (02:18)
[2021-01-11 04:18] LABS: ABG OXYGEN SATURATION 92 % (94-100); ABG PCO2 50 MMHG (35-45); ABG PO2 68 MMHG (79-93); ABG TCO2 22.5 MMOL/L (21.0-31.0); ALLENS TEST YES-POS
[2021-01-11 04:19] LABS: INSPIRED O2 80%; PATIENT TEMP 37.5; VENTILATOR YES
[2021-01-11 04:20] LABS: ABG PH 7.25 (7.37-7.43)
[2021-01-11] MEDS: LACTATED RINGERS 1,000 ML IV SCH (06:06)
[2021-01-11] MEDS: DexMEDEtomidine 250 ML DRIP 250 ML IV SCH ×2 (06:07→16:54)
[2021-01-11] MEDS: MIDAZOLAM DRIP PRE-MIX 100 ML IV SCH ×2 (06:07→16:55)
[2021-01-11 07:16] VITALS: BP 115/46
[2021-01-11 07:44] LABS: BASOPHILS # (AUTO) 0.1 10^3/uL (0.0-0.1); BASOPHILS % (AUTO) 0 % (0-10); EOSINOPHILS # (AUTO) 0.1 10^3/uL (0.0-0.3); EOSINOPHILS % (AUTO) 1 % (0-10); HEMATOCRIT 25 % (35-52); HEMOGLOBIN 7.8 g/dL (11.5-16.0); LYMPHOCYTES # (AUTO) 1.2 10^3/uL (1.0-4.0); LYMPHOCYTES % (AUTO) 9 % (12-44); MEAN CORPUSCULAR HEMOGLOBIN 30 pg (25-34); MEAN CORPUSCULAR HGB CONC 32 g/dL (32-36); MEAN CORPUSCULAR VOLUME 96 fL (80-99); MEAN PLATELET VOLUME 11.4 fL (9.0-12.2); MONOCYTES # (AUTO) 0.4 10^3/uL (0.0-1.0); MONOCYTES % (AUTO) 3 % (0-12); NEUTROPHILS # (AUTO) 10.4 10^3/uL (1.8-7.8); NEUTROPHILS % (AUTO) 78 % (42-75); PLATELET COUNT 183 10^3/uL (130-400); WHITE BLOOD COUNT 13.3 10^3/uL (4.3-11.0)
[2021-01-11 07:46] LABS: POTASSIUM 4.7 MMOL/L (3.6-5.0)
[2021-01-11 07:47] LABS: CALCIUM 7.5 MG/DL (8.5-10.1); SMEAR SCAN COMMENT NO
[2021-01-11 07:51] LABS: CREATININE SERUM 1.87 MG/DL (0.60-1.30); PHOSPHORUS 4.1 MG/DL (2.3-4.7)
[2021-01-11 07:54] LABS: MAGNESIUM 1.9 MG/DL (1.6-2.4)
--- NOTE | 2021-01-11 09:12 | Tele-ICU Progress Note ---
Progress Note video rounds completed 70 y/o female with Covid PNA on full ventilatory support AC 18/80%/PEEP 14 TV 350 sedated and comfortable Patienty is DNR LABS: wbc: 13.7 Hgb: 7.8 AB.25/50/68/21 Na 140 K: 4.8 Cl 108 BUN: 63 Creat: stable at 1.8 Glu: 109 PLan: contiine full vent support and comfort care Focused Exam Height, Weight, BMI Height: '" Weight: lbs. oz. kg; 41.18 BMI Method:Stated ANANYA MAURO MD Jan 11, 2021 09:12
[2021-01-11] MEDS: MICONAZOLE 2% POWDER (DESENEX AF) 90 GM TOP SCH ×2 (09:25→21:04)
[2021-01-11] MEDS: PANTOPRAZOLE 40 MG (PROTONIX) VIAL IV SCH ×2 (09:25→21:46)
[2021-01-11] MEDS: NOREPINEPHRINE 8 MG/250 ML 250 ML IV SCH ×2 (10:29→21:46)
[2021-01-11 11:17] VITALS: BP 125/60
[2021-01-11] MEDS: RT-ALBUTEROL INHALER HFA (VENTOLIN HFA) 18 GM IH PRN ×2 (11:17→14:42)
--- NOTE | 2021-01-11 14:13 | Progress Note ---
Subjective Date Seen by a Provider: Jan 11, 2021 Time Seen by a Provider: 14:07 Subjective/Events-last exam Fwup acute respiratory failure, COVID-19 pneumonia, History of renal cell carcinoma with nephrectomy, acute on chronic renal failure, CML. Patient still sedated on ventilator. Objective Exam Vital Signs Date Time Temp Pulse Resp B/P (MAP) Pulse Ox O2 Delivery O2 Flow Rate FiO2 01/11/21 13:00 81 01/11/21 13:00 36.6 77 35 119/59 (79) 92 Mechanical Ventilator 70.00 01/11/21 12:00 36.8 82 33 130/59 (82) 90 Mechanical Ventilator 70.00 01/11/21 11:17 82 18 90 80 01/11/21 11:00 37.0 86 25 132/50 (77) 90 Mechanical Ventilator 70.00 01/11/21 10:00 37.0 89 101/50 (67) 88 Mechanical Ventilator 70.00 01/11/21 09:26 90 01/11/21 09:00 36.7 86 21 115/46 (69) 89 Mechanical Ventilator 70.00 01/11/21 08:00 36.7 89 22 112/50 (70) 90 Mechanical Ventilator 70.00 01/11/21 08:00 88 Mechanical Ventilator 80 01/11/21 07:16 87 22 89 80 01/11/21 07:00 36.6 86 21 111/50 (70) 90 Mechanical Ventilator 70.00 01/11/21 07:00 86 01/11/21 06:08 86 111/43 01/11/21 06:07 86 22 111/43 01/11/21 06:07 86 111/43 01/11/21 06:00 86 22 111/43 (65) 90 Mechanical Ventilator 70.00 01/11/21 05:00 87 21 114/47 (69) 90 Mechanical Ventilator 70.00 01/11/21 04:00 90 Mechanical Ventilator 80 01/11/21 04:00 89 29 109/50 (69) 90 Mechanical Ventilator 70.00 01/11/21 03:00 84 21 118/46 (70) 91 Mechanical Ventilator 70.00 01/11/21 02:07 82 21 91 80 01/11/21 02:00 80 20 117/46 (69) 91 Mechanical Ventilator 70.00 01/11/21 01:30 78 115/52 01/11/21 01:00 77 19 119/47 (71) 92 Mechanical Ventilator 70.00 01/11/21 01:00 78 01/11/21 00:00 75 25 116/52 (73) 93 Mechanical Ventilator 70.00 01/10/21 23:59 93 Mechanical Ventilator 80 01/10/21 23:00 74 18 110/47 (68) 93 Mechanical Ventilator 70.00 01/10/21 22:00 72 115/48 (70) 95 Mechanical Ventilator 70.00 01/10/21 21:22 72 19 95 80 01/10/21 21:00 70 18 117/52 (73) 94 Mechanical Ventilator 70.00 01/10/21 20:02 68 123/61 01/10/21 20:00 70 18 119/53 (75) 91 Mechanical Ventilator 70.00 01/10/21 20:00 94 Mechanical Ventilator 80 01/10/21 19:00 68 33 119/55 (76) 95 Mechanical Ventilator 70.00 01/10/21 19:00 68 01/10/21 18:02 71 18 92 80 01/10/21 18:00 70 28 123/61 (81) 93 Mechanical Ventilator 70.00 01/10/21 17:00 72 18 125/58 (80) 96 Mechanical Ventilator 70.00 01/10/21 16:00 77 20 135/64 (87) 95 Mechanical Ventilator 70.00 01/10/21 16:00 91 Mechanical Ventilator 70 01/10/21 15:28 37.0 01/10/21 15:00 74 15 123/56 (78) 93 Mechanical Ventilator 70.00 01/10/21 14:54 73 115/60 01/10/21 14:54 77 115/60 I & O 01/11/21 07:00 Intake Total 0 ml Output Total 1100 ml Balance -1100 ml Capillary Refill : Less Than 3 Seconds General Appearance: Other (sedated) HEENT: Other (ET tube and OG tube in place) Respiratory: Decreased Breath Sounds Cardiovascular: Regular Rate, Rhythm Gastrointestinal: normal bowel sounds, soft Extremity: Pedal Edema Neurologic/Psychiatric: Other (sedated) Results Lab Laboratory Tests 01/10/21 17:31: Glucometer 96 01/11/21 03:40: White Blood Count 13.3H, Red Blood Count 2.57L, Hemoglobin 7.8L, Hematocrit 25L, Mean Corpuscular Volume 96, Mean Corpuscular Hemoglobin 30, Mean Corpuscular Hemoglobin Concent 32, Red Cell Distribution Width 17.7H, Platelet Count 183, Mean Platelet Volume 11.4, Immature Granulocyte % (Auto) 9, Neutrophils (%) (Auto) 78H, Lymphocytes (%) (Auto) 9L, Monocytes (%) (Auto) 3, Eosinophils (%) (Auto) 1, Basophils (%) (Auto) 0, Neutrophils # (Auto) 10.4H, Lymphocytes # (Auto) 1.2, Monocytes # (Auto) 0.4, Eosinophils # (Auto) 0.1, Basophils # (Auto) 0.1, Immature Granulocyte # (Auto) 1.2H, Blood Gas Puncture Site LEFT RADIAL, Blood Gas Patient Temperature 37.5, Arterial Blood pH 7.25*L, Arterial Blood Partial Pressure CO2 50H, Arterial Blood Partial Pressure O2 68L, Arterial Blood HCO3 21L, Arterial Blood Total CO2 22.5, Arterial Blood Oxygen Saturation 92L, Arterial Blood Base Excess -5.0L, Nathan Test YES-POS, Blood Gas Ventilator Setting YES, Blood Gas Inspired Oxygen 80%, Sodium Level 143, Potassium Level 4.7, Chloride Level 111H, Carbon Dioxide Level 19L, Anion Gap 13, Blood Urea Nitrogen 65H, Creatinine 1.87H, Estimat Glomerular Filtration Rate 27, BUN/Creatinine Ratio 35, Glucose Level 75, Calcium Level 7.5L, Phosphorus Level 4.1, Magnesium Level 1.9, Triglycerides Level 395H, Smear Scan NO Microbiology 01/06/21 Blood Culture - Preliminary, Resulted No growth 01/03/21 Gram Stain - Final, Complete 01/03/21 Sputum Culture - Final, Complete Moraxella catarrhalis Usual upper respiratory viviana 12/29/20 Urine Culture - Final, Complete NO GROWTH Assessment/Plan Assessment/Plan Assess & Plan/Chief Complaint 1. Acute Respiratory Failure--continues on sedation with ventilatory support, prognosis very guarded 2. COVID-19 Pneumonia--off dexamethsone, off IV abx, continue with lovenox for DVT prophylaxis 3. Acute on Chronic Renal Failure--monitoring with treatment--has improved 4. Acute on Chronic Anemia--monitoring H/H 5. History of Renal Cell Carcinoma with Nephrectomy as well as CML--treatment currently on hold CARY MARCUM DO Jan 11, 2021 14:13
[2021-01-11 14:43] VITALS: BP 114/57
[2021-01-11 18:52] VITALS: BP 124/55
[2021-01-11 22:17] VITALS: BP 134/61
[2021-01-12 02:46] VITALS: BP 134/61
[2021-01-12] MEDS: RT-ALBUTEROL INHALER HFA (VENTOLIN HFA) 18 GM IH SCH ×6 (02:46→22:29)
[2021-01-12] MEDS: guaiFENesin SYRUP 100 MG/5 ML 10 ML (ROBITUSSIN SF) PO SCH ×6 (03:45→23:46)
[2021-01-12 04:42] LABS: BASOPHILS % (AUTO) 0 % (0-10); EOSINOPHILS # (AUTO) 0.1 10^3/uL (0.0-0.3); EOSINOPHILS % (AUTO) 1 % (0-10); HEMATOCRIT 24 % (35-52); HEMOGLOBIN 7.5 g/dL (11.5-16.0); LYMPHOCYTES # (AUTO) 1.1 10^3/uL (1.0-4.0); LYMPHOCYTES % (AUTO) 8 % (12-44); MEAN CORPUSCULAR HEMOGLOBIN 30 pg (25-34); MEAN CORPUSCULAR HGB CONC 32 g/dL (32-36); MEAN CORPUSCULAR VOLUME 94 fL (80-99); MEAN PLATELET VOLUME 11.3 fL (9.0-12.2); MONOCYTES # (AUTO) 0.4 10^3/uL (0.0-1.0); MONOCYTES % (AUTO) 3 % (0-12); NEUTROPHILS # (AUTO) 10.9 10^3/uL (1.8-7.8); NEUTROPHILS % (AUTO) 80 % (42-75); PLATELET COUNT 170 10^3/uL (130-400); WHITE BLOOD COUNT 13.7 10^3/uL (4.3-11.0)
[2021-01-12 04:52] LABS: POTASSIUM 4.9 MMOL/L (3.6-5.0)
[2021-01-12 04:53] LABS: CALCIUM 7.4 MG/DL (8.5-10.1)
[2021-01-12 04:58] LABS: PHOSPHORUS 5.3 MG/DL (2.3-4.7)
[2021-01-12 05:00] LABS: MAGNESIUM 1.9 MG/DL (1.6-2.4)
[2021-01-12] MEDS: POTASSIUM CL 10MEQ/50ML IVPB 50 ML IV SCH (06:08)
[2021-01-12] MEDS: MAGNESIUM 1 GM/100 ML IVPB 100 ML IV SCH (06:08)
[2021-01-12] MEDS: KCL 20 MEQ TAB (K-DUR) PO SCH (06:08)
[2021-01-12] MEDS: PROPOFOL DRIP (ICU) 100 ML IV SCH ×4 (06:09→19:33)
[2021-01-12] MEDS: MIDAZOLAM DRIP PRE-MIX 100 ML IV SCH ×2 (06:09→13:49)
[2021-01-12] MEDS: DexMEDEtomidine 250 ML DRIP 250 ML IV SCH ×2 (06:10→13:51)
[2021-01-12 07:15] VITALS: BP 110/49
--- NOTE | 2021-01-12 08:13 | Tele-ICU Progress Note ---
Progress Note video rounds completed 70 y/o female with Covid PNA on vent. Setting stable: AC: 18/75%/PEEP 14 Sedated and comfortable with propofol/precedex PE: heavily sedated Pulse: 67 BP: 110/47 T: 35.9 O2 sat 94% Labs: wbc 13.7 Hgb 7.5 Plts: 170 Na 143 K: 4.9 Cl 111 CO2 18 BUN up to 70 Creat up to 2.0 Glu 87 Overall stable with no improvement or deterioration. Patient is DNR Continue full supportive care Wean as feasable Focused Exam Height, Weight, BMI Height: '" Weight: lbs. oz. kg; 41.18 BMI Method:Stated ANANYA MAURO MD Jan 12, 2021 08:12
--- NOTE | 2021-01-12 08:45 | Progress Note ---
Subjective Date Seen by a Provider: Jan 12, 2021 Time Seen by a Provider: 08:41 Subjective/Events-last exam Fwup acute respiratory failure, COVID-19 pneumonia, History of renal cell carcinoma with nephrectomy, acute on chronic renal failure, CML. Patient still sedated on ventilator. FiO2 is down to 75%. Objective Exam Vital Signs Date Time Temp Pulse Resp B/P (MAP) Pulse Ox O2 Delivery O2 Flow Rate FiO2 01/12/21 07:15 70 18 96 75 01/12/21 07:00 69 01/12/21 06:10 80 01/12/21 06:09 80 01/12/21 06:09 80 01/12/21 06:00 36.1 68 18 114/50 (71) 94 Mechanical Ventilator 70.00 01/12/21 05:00 36.2 70 18 105/51 (69) 92 Mechanical Ventilator 70.00 01/12/21 04:00 36.3 74 18 128/55 (79) 92 Mechanical Ventilator 70.00 01/12/21 04:00 90 Mechanical Ventilator 75 01/12/21 03:00 36.2 72 18 108/47 (67) 92 Mechanical Ventilator 70.00 01/12/21 02:46 75 18 93 75 01/12/21 02:00 36.3 64 18 113/46 (68) 94 Mechanical Ventilator 70.00 01/12/21 01:00 36.3 64 18 132/60 (84) 94 Mechanical Ventilator 70.00 01/12/21 00:40 64 01/12/21 00:00 36.4 66 19 130/58 (82) 93 Mechanical Ventilator 70.00 01/11/21 23:59 88 Mechanical Ventilator 80 01/11/21 23:00 36.4 68 19 132/58 (82) 92 Mechanical Ventilator 70.00 01/11/21 22:17 68 18 96 80 01/11/21 22:00 36.5 67 18 134/58 (83) 95 Mechanical Ventilator 70.00 01/11/21 21:00 36.5 67 18 133/55 (81) 93 Mechanical Ventilator 70.00 01/11/21 20:00 36.6 68 18 125/56 (79) 92 Mechanical Ventilator 70.00 01/11/21 20:00 90 Mechanical Ventilator 80 01/11/21 19:00 36.6 71 18 123/56 (78) 94 Mechanical Ventilator 70.00 01/11/21 19:00 71 01/11/21 18:52 70 18 94 80 01/11/21 18:00 36.7 71 18 123/54 (75) 91 Mechanical Ventilator 70.00 01/11/21 17:00 36.5 72 18 118/54 (74) 92 Mechanical Ventilator 70.00 01/11/21 16:55 71 01/11/21 16:54 71 01/11/21 16:54 71 01/11/21 16:00 88 Mechanical Ventilator 80 01/11/21 16:00 36.7 74 18 122/56 (78) 92 Mechanical Ventilator 70.00 01/11/21 15:00 36.8 76 20 118/53 (74) 90 Mechanical Ventilator 70.00 01/11/21 14:43 75 18 90 80 01/11/21 14:00 36.8 76 19 108/60 (76) 93 Mechanical Ventilator 70.00 01/11/21 13:00 81 01/11/21 13:00 36.6 77 35 119/59 (79) 92 Mechanical Ventilator 70.00 01/11/21 12:00 88 Mechanical Ventilator 80 01/11/21 12:00 36.8 82 33 130/59 (82) 90 Mechanical Ventilator 70.00 01/11/21 11:17 82 18 90 80 01/11/21 11:00 37.0 86 25 132/50 (77) 90 Mechanical Ventilator 70.00 01/11/21 10:00 37.0 89 101/50 (67) 88 Mechanical Ventilator 70.00 01/11/21 09:26 90 01/11/21 09:00 36.7 86 21 115/46 (69) 89 Mechanical Ventilator 70.00 I & O 01/12/21 07:00 Intake Total 180 ml Output Total 855 ml Balance -675 ml Capillary Refill : Less Than 3 Seconds General Appearance: Other (sedated) HEENT: Other (ET tube and OG tubes in place) Respiratory: Lungs Clear, Decreased Breath Sounds Cardiovascular: Regular Rate, Rhythm, Systolic Murmur Gastrointestinal: normal bowel sounds, soft Extremity: Non Tender, No Calf Tenderness, No Pedal Edema Neurologic/Psychiatric: Other (sedated) Results Lab Laboratory Tests 01/11/21 17:17: Glucometer 93 01/12/21 04:33: White Blood Count 13.7H, Red Blood Count 2.49L, Hemoglobin 7.5L, Hematocrit 24L, Mean Corpuscular Volume 94, Mean Corpuscular Hemoglobin 30, Mean Corpuscular Hemoglobin Concent 32, Red Cell Distribution Width 17.2H, Platelet Count 170, Mean Platelet Volume 11.3, Immature Granulocyte % (Auto) 9, Neutrophils (%) ( Auto) 80H, Lymphocytes (%) (Auto) 8L, Monocytes (%) (Auto) 3, Eosinophils (%) (Auto) 1, Basophils (%) (Auto) 0, Neutrophils # (Auto) 10.9H, Lymphocytes # (Auto) 1.1, Monocytes # (Auto) 0.4, Eosinophils # (Auto) 0.1, Basophils # (Auto) 0.0, Immature Granulocyte # (Auto) 1.2H, Sodium Level 143, Potassium Level 4.9, Chloride Level 111H, Carbon Dioxide Level 18L, Anion Gap 14, Blood Urea Nitrogen 70H, Creatinine 2.00H, Estimat Glomerular Filtration Rate 25, BUN/Creatinine Ratio 35, Glucose Level 87, Calcium Level 7.4L, Phosphorus Level 5.3H, Magnesium Level 1.9 Microbiology 01/06/21 Blood Culture - Final, Complete No growth 01/03/21 Gram Stain - Final, Complete 01/03/21 Sputum Culture - Final, Complete Moraxella catarrhalis Usual upper respiratory viviana 12/29/20 Urine Culture - Final, Complete NO GROWTH Assessment/Plan Assessment/Plan Assess & Plan/Chief Complaint 1. Acute Respiratory Failure--continues on sedation with ventilatory support, prognosis very guarded 2. COVID-19 Pneumonia--off dexamethsone, off IV abx, continue with lovenox for DVT prophylaxis 3. Acute on Chronic Renal Failure--monitoring with treatment--has improved 4. Acute on Chronic Anemia--H/H down to 7.5 today so will give 1u pRBCs 5. History of Renal Cell Carcinoma with Nephrectomy as well as CML--treatment currently on hold CARY MARCUM DO Jan 12, 2021 08:45
[2021-01-12] MEDS: MICONAZOLE 2% POWDER (DESENEX AF) 90 GM TOP SCH ×2 (09:03→19:34)
[2021-01-12] MEDS: PANTOPRAZOLE 40 MG (PROTONIX) VIAL IV SCH ×2 (09:03→19:33)
[2021-01-12] MEDS: LACRI-LUBE OPTHALMIC OINT 3.5 GM TUBE OU PRN (09:12)
[2021-01-12] MEDS: NOREPINEPHRINE 8 MG/250 ML 250 ML IV SCH ×2 (09:13→19:05)
[2021-01-12 10:40] VITALS: BP 115/58
[2021-01-12 14:36] VITALS: BP 100/52
[2021-01-12] MEDS: LACTATED RINGERS 1,000 ML IV SCH (16:15)
[2021-01-12 19:32] VITALS: BP 145/56
[2021-01-12] MEDS: LACRI-LUBE OPTHALMIC OINT 3.5 GM TUBE OU SCH (19:34)
[2021-01-12 22:29] VITALS: BP 150/48
[2021-01-13] MEDS: PROPOFOL DRIP (ICU) 100 ML IV SCH ×3 (02:21→11:38)
[2021-01-13] MEDS: DexMEDEtomidine 250 ML DRIP 250 ML IV SCH ×3 (02:22→23:40)
[2021-01-13 02:42] VITALS: BP 130/50
[2021-01-13] MEDS: RT-ALBUTEROL INHALER HFA (VENTOLIN HFA) 18 GM IH SCH ×6 (02:42→21:38)
[2021-01-13] MEDS: guaiFENesin SYRUP 100 MG/5 ML 10 ML (ROBITUSSIN SF) PO SCH ×6 (04:18→23:40)
[2021-01-13 05:40] LABS: BASOPHILS % (AUTO) 0 % (0-10); EOSINOPHILS # (AUTO) 0.2 10^3/uL (0.0-0.3); EOSINOPHILS % (AUTO) 2 % (0-10); HEMATOCRIT 25 % (35-52); HEMOGLOBIN 7.8 g/dL (11.5-16.0); LYMPHOCYTES # (AUTO) 0.8 10^3/uL (1.0-4.0); LYMPHOCYTES % (AUTO) 5 % (12-44); MEAN CORPUSCULAR HEMOGLOBIN 30 pg (25-34); MEAN CORPUSCULAR HGB CONC 32 g/dL (32-36); MEAN CORPUSCULAR VOLUME 95 fL (80-99); MEAN PLATELET VOLUME 11.2 fL (9.0-12.2); MONOCYTES # (AUTO) 0.3 10^3/uL (0.0-1.0); MONOCYTES % (AUTO) 2 % (0-12); NEUTROPHILS # (AUTO) 12.6 10^3/uL (1.8-7.8); NEUTROPHILS % (AUTO) 83 % (42-75); PLATELET COUNT 179 10^3/uL (130-400); WHITE BLOOD COUNT 15.3 10^3/uL (4.3-11.0)
[2021-01-13 05:42] LABS: ABG BASE EXCESS -6.3 MMOL/L (-2.5-2.5); ABG OXYGEN SATURATION 88 % (94-100); ABG PCO2 39 MMHG (35-45); ABG PO2 54 MMHG (79-93); ABG TCO2 20.1 MMOL/L (21.0-31.0)
[2021-01-13 05:53] LABS: ALLENS TEST YES-POS; INSPIRED O2 80%; PATIENT TEMP 36.8; VENTILATOR YES
[2021-01-13 05:54] LABS: POTASSIUM 4.8 MMOL/L (3.6-5.0)
[2021-01-13 05:56] LABS: CALCIUM 7.4 MG/DL (8.5-10.1)
[2021-01-13 06:00] LABS: CREATININE SERUM 2.07 MG/DL (0.60-1.30); PHOSPHORUS 5.1 MG/DL (2.3-4.7)
[2021-01-13] MEDS: MAGNESIUM 1 GM/100 ML IVPB 100 ML IV SCH (06:00)
[2021-01-13] MEDS: NOREPINEPHRINE 8 MG/250 ML 250 ML IV SCH ×3 (06:00→19:33)
[2021-01-13] MEDS: KCL 20 MEQ TAB (K-DUR) PO SCH (06:00)
[2021-01-13] MEDS: POTASSIUM CL 10MEQ/50ML IVPB 50 ML IV SCH (06:00)
[2021-01-13 06:02] LABS: MAGNESIUM 1.9 MG/DL (1.6-2.4)
[2021-01-13 06:24] VITALS: BP 135/62
[2021-01-13] MEDS: MICONAZOLE 2% POWDER (DESENEX AF) 90 GM TOP SCH ×2 (08:00→19:44)
[2021-01-13] MEDS: PANTOPRAZOLE 40 MG (PROTONIX) VIAL IV SCH ×2 (08:00→19:44)
[2021-01-13] MEDS: LACRI-LUBE OPTHALMIC OINT 3.5 GM TUBE OU SCH ×3 (08:00→19:44)
--- NOTE | 2021-01-13 08:09 | Diagnostic Imaging Report ---
INDICATION: COVID pneumonia. Comparison made with prior examination of 01/10/2021. FINDINGS: The heart size is normal. There are bilateral pulmonary infiltrates. Some venous congestion. No pneumothorax. Mediastinum unremarkable. Lines and tubes are in satisfactory position. IMPRESSION: Bilateral pulmonary infiltrates suspect for pneumonia with likely underlying central port venous congestion. Dictated by: Dictated on workstation # [id number]
--- NOTE | 2021-01-13 08:34 | Progress Note ---
Subjective Subjective Date Seen by Provider: Jan 14, 2021 Time Seen by Provider: 08:30 LOUIE IS A 70 Y/O FEMALE WHO IS A NEW PATIENT TO MY PRACTICE OF A FEW MONTHS AGO. SHE HAS HX OF CML, RENAL CARCINOMA STATUS POST NEPHRECTOMY PER STAFF REPORT, PT HAS NOT AWAKENED DESPITE A HOLIDAY OFF OF PARALYTICS, HAS BEEN OFF OF PROPOFOL DUE TO ELEVATED TRIGLYCERIDES Review of Systems ROS Unable to Obtain: INTUBATED, sedated General: Other (sedated) HEENT: No Head Aches, No Eye Pain, No Ear Pain, No Dysphasia, No Sinus Congestion, No Post Nasal Drip, No Sore Throat Pulmonary: Dyspnea, Cough Cardiovascular: No: Chest Pain, Palpitations, Orthopnea, Paroxysmal Noc. Dyspnea, Edema, Lt Headedness Gastrointestinal: No: Nausea, Vomiting, Abdominal Pain, Diarrhea, Constipation, Melena, Hematochezia Genitourinary: No Dysuria, No Frequency, No Incontinence, No Hematuria, No Retention Musculoskeletal: No: other, neck pain, shoulder pain, arm pain, back pain, hand pain, leg pain, foot pain Neurological: No: Weakness, Numbness, Incoordination, Change in speech, Confusion, Seizures, Other All Other Systems Reviewed All Other Systems Reviewed: Yes Objective Exam Vital Signs Vital Signs - First Documented 01/07/21 01/07/21 01/07/21 00:00 02:05 04:30 Temp 35.8 Pulse 60 Resp 33 B/P (MAP) 114/53 (73) Pulse Ox 92 O2 Delivery Mechanical Ventilator O2 Flow Rate 65.00 FiO2 55 Capillary Refill : Less Than 3 Seconds General Appearance: Other (sedated ON VENT) HEENT: Other (ET tube and OG tubes in place) Neck: Normal Inspection Respiratory: Crackles (BASES), Decreased Breath Sounds Cardiovascular: Regular Rate, Rhythm, Systolic Murmur Gastrointestinal: Normal Bowel Sounds, Non Tender, Soft Extremity: Non Tender, No Calf Tenderness, Pedal Edema (TRACE, AND EDEMA OF HANDS/ARMS) Neurologic/Psychiatric: Other (SEDATED ON VENT) Skin: Cool (ON FEET) Results Lab Laboratory Tests 01/13/21 05:28: White Blood Count 15.3H, Red Blood Count 2.61L, Hemoglobin 7.8L, Hematocrit 25L, Mean Corpuscular Volume 95, Mean Corpuscular Hemoglobin 30, Mean Corpuscular Hemoglobin Concent 32, Red Cell Distribution Width 17.5H, Platelet Count 179, Mean Platelet Volume 11.2, Immature Granulocyte % (Auto) 9, Neutrophils (%) (Auto) 83H, Lymphocytes (%) (Auto) 5L, Monocytes (%) (Auto) 2, Eosinophils (%) (Auto) 2, Basophils (%) (Auto) 0, Neutrophils # (Auto) 12.6H, Lymphocytes # (Auto) 0.8L, Monocytes # (Auto) 0.3, Eosinophils # (Auto) 0.2, Basophils # (Auto) 0.0, Immature Granulocyte # (Auto) 1.3H, Blood Gas Puncture Site RR, Blood Gas Patient Temperature 36.8, Arterial Blood pH 7.30*L, Arterial Blood Partial Pressure CO2 39, Arterial Blood Partial Pressure O2 54L, Arterial Blood HCO3 19L, Arterial Blood Total CO2 20.1L, Arterial Blood Oxygen Saturation 88L, Arterial Blood Base Excess -6.3L, Nathan Test YES-POS, Blood Gas Ventilator Setting YES, Blood Gas Inspired Oxygen 80%, Sodium Level 144, Potassium Level 4.8, Chloride Level 112H, Carbon Dioxide Level 18L, Anion Gap 14, Blood Urea Nitrogen 73H, Creatinine 2.07H, Estimat Glomerular Filtration Rate 24, B UN/Creatinine Ratio 35, Glucose Level 73, Calcium Level 7.4L, Phosphorus Level 5.1H, Magnesium Level 1.9, Triglycerides Level 435H Microbiology 01/06/21 Blood Culture - Final, Complete No growth 01/03/21 Gram Stain - Final, Complete 01/03/21 Sputum Culture - Final, Complete Moraxella catarrhalis Usual upper respiratory viviana 12/29/20 Urine Culture - Final, Complete NO GROWTH Assessment/Plan Assessment/Plan Admission Dx ACUTE HYPOXIC RESPIRATORY FAILURE COVID 19 PULMONARY INFECTION HX OF RENAL CELL CARCINOMA WITH NEPHRECTOMY HYPONATREMIA ACUTE ON CHRONIC RENAL FAILURE (STAGE 4) CHRONIC MYELOGENOUS LEUKEMIA ACUTELY ELEVATED LIVER ENZYMES DUE TO SHOCK MORBID OBESITY Assessment and Plan ACUTE HYPOXIC RESPIRATORY FAILURE COVID 19 PULMONARY INFECTION HX OF RENAL CELL CARCINOMA WITH NEPHRECTOMY HYPONATREMIA ACUTE ON CHRONIC RENAL FAILURE (STAGE 4) CHRONIC MYELOGENOUS LEUKEMIA ACUTELY ELEVATED LIVER ENZYMES DUE TO SHOCK MORBID OBESITY ACUTE HYPOXIC RESPIRATORY FAILURE DUE TO COVID 19 PULMONARY INFECTION WITH PNEUMONIA - PT ON DECADRON, RECEIVED CONVALESCENT PLASMA - CANNOT BE ON REMDESIVIR DUE TO HER LIVER FUNCTION AND RENAL FUNCTION. - E-ICU ON CONSULT FOR THIS PATIENT WITH PULMONARY CRITICAL CARE PHYSICIANS ROUNDING ON THE PATIENT VIRTUALLY. - PT MECHANICALLY VENTILATED - WHITE COUNT WORSENING - CXR WORSENING IN APPEARANCE. ANEMIA - HGB DECREASED - WILL REPEAT IN MORNING - MAY NEED BLOOD TRANSFUSION IF HGB DROPS BELOW 7 HX OF RENAL CELL CARCINOMA WITH NEPHRECTOMY AND ACUTE ON CHRONIC RENAL FAILURE (STAGE 4) - SUPPORTIVE CARE ONLY AT THIS TIME, RENAL ADJUSTMENT OF MEDICATIONS, IV FLUIDS. - WORSENING RENAL FUNCTION - DUE TO PT'S OVERALL DECLINE, NEED FOR PRESSORS INTERMITTENTLY, AND WHAT IS LIKELY END OF LIFE DECLINE HYPONATREMIA - REPLENISHED WITH IV FLUIDS. - MONITOR LABS, REPLACE NEEDED. CHRONIC MYELOGENOUS LEUKEMIA - HOLDING GLEEVAC AT THIS TIME. ACUTELY ELEVATED LIVER ENZYMES DUE TO SHOCK AND COVID INFECTION - FLUIDS, SUPPORTIVE CARE, MONITOR LABS CLOSELY. - CANNOT GIVE REMDESIVIR DUE TO LIVER FAILURE MORBID OBESITY - WILL NEED TO BE ASSISTED WITH MOVEMENTS/PRONING, ETC. DISCUSSED WITH EICU PROVIDER DR. ALMAZAN AND THEN WITH HER NIECE CHRISTINE - THE PLAN WILL BE FOR PT TO STAY INTUBATED FOR NOW, WILL RE-EVALUATE HER STATUS TOMORROW TO MAKE THE DETERMINATION TO IF WE WILL BE PLACING A TRACHEOSTOMY TUBE AND THEN MAKING PLANS FOR TRANSFER TO A LONG-[facility]M CARE HOSPITAL VERSUS DISCUSSING TERMINAL EXTUBATION. FAMILY IS AWARE OF HOW GRAVELY ILL THE PT IS AND HOW TENUOUS OUR PLANS ARE AT THIS TIME PENDING CHANGES IN PT STATUS. DVT PROPHYLAXIS WITH LOVENOX Problems: (1) Acute respiratory failure Qualifiers: Qualified Codes: J96.01 - Acute respiratory failure with hypoxia (2) Abnormal liver function (3) Acute kidney injury (4) Pneumonia due to COVID-19 virus (5) Hyponatremia Assessment & Plan: improved (6) CML (chronic myelocytic leukemia) (7) Renal cell carcinoma Admission Dx ACUTE HYPOXIC RESPIRATORY FAILURE COVID 19 PULMONARY INFECTION HX OF RENAL CELL CARCINOMA WITH NEPHRECTOMY HYPONATREMIA ACUTE ON CHRONIC RENAL FAILURE (STAGE 4) CHRONIC MYELOGENOUS LEUKEMIA ACUTELY ELEVATED LIVER ENZYMES DUE TO SHOCK MORBID OBESITY Clinical Quality Measures Admission Status Admission Dx ACUTE HYPOXIC RESPIRATORY FAILURE COVID 19 PULMONARY INFECTION HX OF RENAL CELL CARCINOMA WITH NEPHRECTOMY HYPONATREMIA ACUTE ON CHRONIC RENAL FAILURE (STAGE 4) CHRONIC MYELOGENOUS LEUKEMIA ACUTELY ELEVATED LIVER ENZYMES DUE TO SHOCK MORBID OBESITY SAMAN RAI MD Jan 13, 2021 08:34
--- NOTE | 2021-01-13 08:35 | Tele-ICU Progress Note ---
Subjective Date Seen by a Provider: Jan 13, 2021 Time Seen by a Provider: 08:35 Sepsis Event Evaluation Height, Weight, BMI Height: '" Weight: lbs. oz. kg; 41.18 BMI Method:Stated Exam Exam Patient acknowledged, consented, and participated in this virtual visit which was conducted using real time audio/video Vital Signs Date Time Temp Pulse Resp B/P (MAP) Pulse Ox O2 Delivery O2 Flow Rate FiO2 01/13/21 08:09 93 Mechanical Ventilator 90 01/13/21 08:00 76 18 119/54 (75) 93 Mechanical Ventilator 90.00 01/13/21 07:25 37.0 01/13/21 07:00 80 01/13/21 07:00 79 22 104/53 (70) 92 Mechanical Ventilator 90.00 01/13/21 06:24 89 24 93 80 01/13/21 06:16 135/62 01/13/21 06:13 91 18 135/62 (81) 94 Mechanical Ventilator 90.00 01/13/21 06:09 Mechanical Ventilator 90.00 01/13/21 05:00 79 20 110/46 (71) 92 Mechanical Ventilator 80.00 01/13/21 04:18 Mechanical Ventilator 80 01/13/21 04:00 80 25 111/48 (74) 91 Mechanical Ventilator 80.00 01/13/21 04:00 36.8 01/13/21 03:00 81 18 111/50 (70) 91 Mechanical Ventilator 80.00 01/13/21 02:42 82 20 93 80 01/13/21 02:22 82 133/54 01/13/21 02:21 82 133/54 01/13/21 02:00 85 30 134/54 (78) 91 Mechanical Ventilator 80.00 01/13/21 01:57 82 01/13/21 01:00 82 27 133/54 (80) 91 Mechanical Ventilator 80.00 01/13/21 00:04 36.0 01/13/21 00:00 86 35 143/52 (82) 91 Mechanical Ventilator 80.00 01/12/21 23:47 Mechanical Ventilator 80 01/12/21 23:00 81 20 137/58 (83) 90 Mechanical Ventilator 80.00 01/12/21 22:29 79 20 90 80 01/12/21 22:00 77 29 137/58 (93) 93 Mechanical Ventilator 80.00 01/12/21 21:00 74 28 130/52 (82) 93 Mechanical Ventilator 80.00 01/12/21 20:19 90 Mechanical Ventilator 80 01/12/21 20:00 69 12 114/57 (79) 90 Mechanical Ventilator 80.00 01/12/21 19:33 68 110/55 01/12/21 19:32 64 20 98 100 01/12/21 19:30 35.9 68 22 110/55 (73) 94 Mechanical Ventilator 80.00 01/12/21 19:05 61 106/47 01/12/21 19:00 62 01/12/21 19:00 62 31 109/49 (74) 99 Mechanical Ventilator 80.00 01/12/21 18:00 61 23 106/47 (66) 95 Mechanical Ventilator 100.00 01/12/21 17:00 61 23 101/49 (66) 95 Mechanical Ventilator 100.00 01/12/21 16:16 92 Mechanical Ventilator 100 01/12/21 16:08 35.8 01/12/21 16:00 61 21 87/48 (61) 93 Mechanical Ventilator 100.00 01/12/21 15:00 63 28 97/55 (69) 92 Mechanical Ventilator 100.00 01/12/21 14:36 60 20 93 100 01/12/21 14:00 64 11 104/53 (70) 93 Mechanical Ventilator 100.00 01/12/21 13:51 106/54 01/12/21 13:51 106/54 01/12/21 13:49 106/54 01/12/21 13:00 66 01/12/21 13:00 65 18 106/54 (71) 98 Mechanical Ventilator 100.00 01/12/21 12:15 90 Mechanical Ventilator 100 01/12/21 12:00 67 101/55 (70) 98 Mechanical Ventilator 100.00 01/12/21 11:55 Mechanical Ventilator 100.00 01/12/21 11:53 35.8 01/12/21 11:00 71 20 107/51 (69) 90 Mechanical Ventilator 70.00 01/12/21 10:40 69 20 92 75 01/12/21 10:00 35.9 69 19 106/57 (73) 92 Mechanical Ventilator 70.00 01/12/21 09:13 70 110/49 01/12/21 09:03 70 110/49 01/12/21 09:00 35.9 67 105/48 (67) 93 Mechanical Ventilator 70.00 I & O 01/13/21 07:00 Intake Total 60 ml Output Total 1055 ml Balance -995 ml Height & Weight Height: '" Weight: lbs. oz. kg; 41.18 BMI Method:Stated General Appearance: Other (sedated) HEENT: Other (ET tube and OG tubes in place) Neck: Normal Inspection, Supple Respiratory: Lungs Clear, Decreased Breath Sounds Cardiovascular: Regular Rate, Rhythm, Systolic Murmur Capillary Refill: Less Than 3 Seconds Gastrointestinal: normal bowel sounds, soft Extremity: Non Tender, No Calf Tenderness, No Pedal Edema Neurologic/Psychiatric: Other (sedated) Skin: Cool (ON FEET) Results Lab Laboratory Tests 01/12/21 04:33 01/13/21 05:28 Assessment/Plan Assessment/Plan Discussed with RN Events overnight : proned til 4 am - dropped BP when turned supine Afebrile , I/O nwg 800 Drips: propofol 30 , versed 5 , precedex ,levo OFF, LR 50 As per RN exam : sedated ., moves spontaneously RASS-4 Consultants: Hospital course: 12/29- admitte dwith COVID PNA on remdesivir and decadraon, d dimer 3, on once a day Lovenox 12/31 vapotherm 40 lpm FiO2 100% - RR 20 - 40 12/31- intubated 01/01 - self-extubated , spont RR 36, BiPAP / FiO2 70% 01/02 - can not tolerate BIPAP , started precedex - > back to vapotherm 40 lpm FiO2 90% (01/03) Re-intubated 01/06 - 100% peep 14 , hypotensive - levo started , lasix gtt started 01/07 - stopped lasix with ? cr , peep 14 100% 01/08 70% peep 14 01/09 - off pressors , but ?fio2 to 80 , LOOSE STOOLS , OFF ABX ECHO 12/31 - EF 70% , RVSP 45 mmHg A/P Acute resp failure , Covid PNA PC Vent 90% peep 14 rr 18 ( spon 24) 350 - PAP 37 - keep neg balance not PRONING - sedation propofol - TLG 230 on 01.06 , 296 on 01/07 - will try to wean off - versed gtt 01/06 -RASS -4 , no sedation vacation with high O2 need COVID PNA - remdesiivir - 12/30 - remdesivir off with ? Cr - decadron 6 iv -- OFF now - Heparin sQ - on hold for possible GIB 01/06 - is stable HB consider to resume Shock - OFF levo Pneumomediastinum 01/04 cxr - Sq emphesema same exam as per RN report . cxr 01/06 improved - will follow with cxr Leukocytosis - 12/29 - coag neg staph 07/13, urine MRSA swab neg , sputum 12/31 -, sputum 01/03 - moraxella - z max 01/03- 01/09 - OFF ABX NOW - follow - Hyponatremia - admitted 118 12/29 =>12/31 to 127 - 01/02 - normalized - cont to monitor ELZA - admit Cr 3, slow improving to 2 ( History of Renal Cell Carcinoma with Nephrectomy - gentle diuresis with lasix on 01/06 - no improvement in Fio2 , but Cr rising again off diuresis-> goal to keep even , also will give albumin trnafusion as volume expansion - hyperK on 01/08 -Tx -ed , stable now Cr and K Coffee grounds in NG 01/06 - TF on hold, on LIS x24 h - pink minmal secretions - 01/09 -STABLE NOW - PPI BID Transaminases -LFT's are elevated, need to be monitored-normalized - off remdesivir , probably due to COVID 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 Discussed with RN to reach out if any questions or concerns A total of 28 minutes of critical care time was devoted to this patient today, required to treat and/or prevent further deterioration of critical care condition ( as above ) . ALENA CRAVEN MD Jan 13, 2021 08:35
[2021-01-13] MEDS ORDERED: NOREPINEPHRINE 8 MG/250 ML 250 ML IV ONE (09:40)
[2021-01-13 11:07] VITALS: BP 96/53
[2021-01-13] MEDS: MIDAZOLAM DRIP PRE-MIX 100 ML IV SCH (11:33)
[2021-01-13] MEDS: LACTATED RINGERS 1,000 ML IV SCH (11:33)
[2021-01-13] MEDS: ACETAMINOPHEN 325 MG TABLET PO PRN (14:31)
[2021-01-13 14:43] VITALS: BP 94/42
[2021-01-13] MEDS ORDERED: ALBUMIN 5% 12.5 GM/250 ML 250 ML IV ONE (15:49)
[2021-01-13] MEDS ORDERED: DEXTROSE 50% 50 ML (IMS) SYR IV ONE (18:30)
[2021-01-13] MEDS ORDERED: DEXTROSE 50% 50 ML (IMS) SYR ONE (18:38)
[2021-01-13 18:54] VITALS: BP 118/49
[2021-01-13 21:39] VITALS: BP 150/54
[2021-01-14] MEDS: ACETAMINOPHEN 325 MG TABLET PO PRN (00:51)
[2021-01-14 02:27] VITALS: BP 100/46
[2021-01-14] MEDS: RT-ALBUTEROL INHALER HFA (VENTOLIN HFA) 18 GM IH SCH ×6 (02:27→21:40)
[2021-01-14] MEDS: guaiFENesin SYRUP 100 MG/5 ML 10 ML (ROBITUSSIN SF) PO SCH ×6 (03:36→23:26)
[2021-01-14 05:31] LABS: BASOPHILS # (AUTO) 0.1 10^3/uL (0.0-0.1); BASOPHILS % (AUTO) 0 % (0-10); EOSINOPHILS # (AUTO) 0.2 10^3/uL (0.0-0.3); EOSINOPHILS % (AUTO) 1 % (0-10); HEMATOCRIT 23 % (35-52); HEMOGLOBIN 7.2 g/dL (11.5-16.0); LYMPHOCYTES # (AUTO) 0.8 10^3/uL (1.0-4.0); LYMPHOCYTES % (AUTO) 5 % (12-44); MEAN CORPUSCULAR HEMOGLOBIN 30 pg (25-34); MEAN CORPUSCULAR HGB CONC 32 g/dL (32-36); MEAN CORPUSCULAR VOLUME 95 fL (80-99); MEAN PLATELET VOLUME 11.5 fL (9.0-12.2); MONOCYTES # (AUTO) 0.6 10^3/uL (0.0-1.0); MONOCYTES % (AUTO) 4 % (0-12); NEUTROPHILS # (AUTO) 13.3 10^3/uL (1.8-7.8); NEUTROPHILS % (AUTO) 82 % (42-75); PLATELET COUNT 179 10^3/uL (130-400); WHITE BLOOD COUNT 16.2 10^3/uL (4.3-11.0)
[2021-01-14] MEDS: MAGNESIUM 1 GM/100 ML IVPB 100 ML IV SCH (05:36)
[2021-01-14] MEDS: KCL 20 MEQ TAB (K-DUR) PO SCH (05:36)
[2021-01-14] MEDS: POTASSIUM CL 10MEQ/50ML IVPB 50 ML IV SCH (05:36)
[2021-01-14] MEDS: NOREPINEPHRINE 8 MG/250 ML 250 ML IV SCH ×2 (05:36→15:52)
[2021-01-14 05:42] LABS: POTASSIUM 4.8 MMOL/L (3.6-5.0)
[2021-01-14 05:43] LABS: CALCIUM 7.3 MG/DL (8.5-10.1)
[2021-01-14 05:47] LABS: PHOSPHORUS 5.2 MG/DL (2.3-4.7)
[2021-01-14 05:48] LABS: CREATININE SERUM 2.25 MG/DL (0.60-1.30)
[2021-01-14 05:50] LABS: MAGNESIUM 1.9 MG/DL (1.6-2.4)
[2021-01-14 05:52] LABS: ABG BASE EXCESS -7.7 MMOL/L (-2.5-2.5); ABG OXYGEN SATURATION 80 % (94-100); ABG PCO2 40 MMHG (35-45); ABG PO2 46 MMHG (79-93); ABG TCO2 19.1 MMOL/L (21.0-31.0)
[2021-01-14 05:53] LABS: ALLENS TEST YES-POS; INSPIRED O2 80%; PATIENT TEMP 37.9; VENTILATOR YES
[2021-01-14 05:54] LABS: ABG PH 7.27 (7.37-7.43)
[2021-01-14 07:22] VITALS: BP 112/53
[2021-01-14] MEDS: MICONAZOLE 2% POWDER (DESENEX AF) 90 GM TOP SCH ×2 (08:08→21:28)
[2021-01-14] MEDS: LACRI-LUBE OPTHALMIC OINT 3.5 GM TUBE OU SCH ×3 (08:09→21:29)
[2021-01-14] MEDS: PANTOPRAZOLE 40 MG (PROTONIX) VIAL IV SCH ×2 (08:09→19:52)
[2021-01-14] MEDS: LACTATED RINGERS 1,000 ML IV SCH (08:09)
[2021-01-14 09:53] VITALS: BP 127/62
[2021-01-14] MEDS: RT-ALBUTEROL INHALER HFA (VENTOLIN HFA) 18 GM IH PRN (10:00)
[2021-01-14] MEDS ORDERED: FUROSEMIDE INJECTION 120 MG in D5W 100 ML IVPB 108 ML IV SCH (10:15)
--- NOTE | 2021-01-14 10:23 | Tele-ICU Progress Note ---
Subjective Date Seen by a Provider: Jan 14, 2021 Time Seen by a Provider: 10:22 Sepsis Event Evaluation Height, Weight, BMI Height: '" Weight: lbs. oz. kg; 41.18 BMI Method:Stated Exam Exam Patient acknowledged, consented, and participated in this virtual visit which was conducted using real time audio/video Vital Signs Date Time Temp Pulse Resp B/P (MAP) Pulse Ox O2 Delivery O2 Flow Rate FiO2 01/14/21 09:53 95 31 93 80 01/14/21 08:15 Mechanical Ventilator 80 01/14/21 08:00 75 30 116/54 (74) 93 Mechanical Ventilator 80.00 01/14/21 07:57 37.0 01/14/21 07:22 76 31 93 80 01/14/21 07:00 77 30 111/50 (70) 93 Mechanical Ventilator 80.00 01/14/21 06:39 79 01/14/21 06:00 81 29 110/50 (70) 92 Mechanical Ventilator 80.00 01/14/21 05:00 82 23 105/49 (67) 95 Mechanical Ventilator 80.00 01/14/21 04:00 85 24 99/47 (64) 96 Mechanical Ventilator 80.00 01/14/21 03:35 37.5 01/14/21 03:21 Mechanical Ventilator 80 01/14/21 03:00 86 23 102/46 (64) 96 Mechanical Ventilator 80.00 01/14/21 02:27 83 26 94 80 01/14/21 02:00 89 31 102/48 (66) 94 Mechanical Ventilator 80.00 01/14/21 01:00 105 33 106/43 (64) 92 Mechanical Ventilator 80.00 01/14/21 01:00 105 01/14/21 00:00 103 35 116/44 (68) 91 Mechanical Ventilator 80.00 01/13/21 23:43 38.0 01/13/21 23:40 101 120/41 01/13/21 23:27 Mechanical Ventilator 80 01/13/21 23:00 101 31 120/41 (67) 91 Mechanical Ventilator 80.00 01/13/21 22:00 104 31 137/46 (76) 92 Mechanical Ventilator 80.00 01/13/21 21:39 102 32 93 80 01/13/21 21:00 96 32 165/41 (99) 89 Mechanical Ventilator 80.00 01/13/21 20:00 Mechanical Ventilator 80 01/13/21 20:00 87 31 143/52 (88) 89 Mechanical Ventilator 80.00 01/13/21 19:41 37.6 79 28 134/57 (82) 97 Mechanical Ventilator 80.00 01/13/21 19:41 36.8 01/13/21 19:00 72 24 125/51 (75) 91 Mechanical Ventilator 90.00 01/13/21 19:00 72 01/13/21 18:54 73 27 94 90 01/13/21 18:00 72 28 119/51 (73) 94 Mechanical Ventilator 90.00 01/13/21 17:00 71 21 106/48 (67) 94 Mechanical Ventilator 90.00 01/13/21 16:23 72 01/13/21 16:00 73 23 103/43 (63) 96 Mechanical Ventilator 90.00 01/13/21 16:00 93 Mechanical Ventilator 90 01/13/21 16:00 37.2 01/13/21 15:01 37.4 01/13/21 15:00 75 24 114/48 (70) 96 Mechanical Ventilator 90.00 01/13/21 14:43 77 19 97 90 01/13/21 14:31 38.0 01/13/21 14:00 74 20 96/48 (64) 95 Mechanical Ventilator 90.00 01/13/21 13:00 76 30 95/45 (62) 95 Mechanical Ventilator 90.00 01/13/21 12:39 80 01/13/21 12:00 80 27 99/95 (96) 93 Mechanical Ventilator 90.00 01/13/21 12:00 93 Mechanical Ventilator 90 01/13/21 11:55 37.7 01/13/21 11:38 80 97/55 01/13/21 11:33 80 87/55 01/13/21 11:31 80 87/55 01/13/21 11:07 84 26 92 90 01/13/21 11:00 85 30 102/50 (67) 92 Mechanical Ventilator 90.00 I & O 01/14/21 07:00 Intake Total 305 ml Output Total 1050 ml Balance -745 ml Height & Weight Height: '" Weight: lbs. oz. kg; 41.18 BMI Method:Stated General Appearance: Other (sedated) HEENT: Other (ET tube and OG tubes in place) Neck: Normal Inspection, Supple Respiratory: Lungs Clear, Decreased Breath Sounds Cardiovascular: Regular Rate, Rhythm, Systolic Murmur Capillary Refill: Less Than 3 Seconds Gastrointestinal: normal bowel sounds, soft Extremity: Non Tender, No Calf Tenderness, No Pedal Edema Neurologic/Psychiatric: Other (sedated) Skin: Cool (ON FEET) Results Lab Laboratory Tests 01/13/21 05:28 01/14/21 05:20 Assessment/Plan Assessment/Plan Discussed with RN Events overnight : proned til 4 am - dropped BP when turned supine Afebrile , I/O nwg 800 Drips: propofol 30 , versed 5 , precedex ,levo OFF, LR 50 As per RN exam : sedated ., moves spontaneously RASS-4 Consultants: Hospital course: 12/29- admitte dwith COVID PNA on remdesivir and decadraon, d dimer 3, on once a day Lovenox 12/31 vapotherm 40 lpm FiO2 100% - RR 20 - 40 12/31- intubated 01/01 - self-extubated , spont RR 36, BiPAP 22/01 FiO2 70% 01/02 - can not tolerate BIPAP , started precedex - > back to vapotherm 40 lpm FiO2 90% (01/03) Re-intubated 01/06 - 100% peep 14 , hypotensive - levo started , lasix gtt started 01/07 - stopped lasix with ? cr , peep 14 100% 01/08 70% peep 14 01/09 - off pressors , but ?fio2 to 80 , LOOSE STOOLS , OFF ABX 01/13 - back on pressors . 100% , worsenign GFR ECHO 12/31 - EF 70% , RVSP 45 mmHg A/P Acute resp failure , Covid PNA PC Vent 90% peep 14 rr 18 ( spon 24) 350 - PAP 37- ANTICIPATE MORE ACIDOSI WITH DIURESIS - WILL INCREASE RR not PRONING - sedation propofol - TLG 230 on 01.06 , 296 on 01/07 - will try to wean off - versed gtt 01/06 OFF PROPOFOL 24 H , CONT TO DECREASE VERCED AND PRECEDEX TO ASSESS MENTAL STATUS - NOT RESPONSIVE ELZA - admit Cr 3, slow improving to 2 ( History of Renal Cell Carcinoma with Nephrectomy - gentle diuresis with lasix on 01/06 - no improvement in Fio2 -PATIENT IS VEREY EDEMATOUS , WILL ATTEMPT LASIX GTT AGAIN WITH ALBUMIN WITH HOPES TO IMPROVE FIO2 COVID PNA - remdesiivir - 12/30 - remdesivir off with ? Cr - decadron 6 iv -- OFF now - Heparin sQ - on hold for possible GIB 01/06 - is stable HB consider to resume Shock - OFF/ ON levo Pneumomediastinum 01/04 cxr - Sq emphesema same exam as per RN report . 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 Discussed with RN to reach out if any questions or concerns A total of 28 minutes of critical care time was devoted to this patient today, required to treat and/or prevent further deterioration of critical care condition ( as above ) . ALENA CRAVEN MD Jan 14, 2021 10:23
[2021-01-14] MEDS ORDERED: FUROSEMIDE IV SCH (10:30)
[2021-01-14] MEDS ORDERED: D5W IV SCH (10:30)
[2021-01-14] MEDS: FUROSEMIDE INJECTION 120 MG in D5W 100 ML IVPB 100 ML IV SCH (10:38)
[2021-01-14] MEDS: MIDAZOLAM DRIP PRE-MIX 100 ML IV SCH (11:46)
[2021-01-14] MEDS: ALBUMIN 25% 25 GM/100 ML 100 ML IV SCH ×2 (13:49→21:29)
[2021-01-14 14:33] VITALS: BP 132/68
[2021-01-14] MEDS ORDERED: ALBUMIN 25% 25 GM/100 ML 50 ML IV ONE (15:45)
[2021-01-14 18:40] VITALS: BP 186/73
[2021-01-14 22:51] VITALS: BP 131/55
[2021-01-15 01:45] VITALS: BP 138/64
[2021-01-15] MEDS: RT-ALBUTEROL INHALER HFA (VENTOLIN HFA) 18 GM IH SCH ×4 (01:45→15:48)
[2021-01-15] MEDS: NOREPINEPHRINE 8 MG/250 ML 250 ML IV SCH ×2 (02:35→05:39)
[2021-01-15 03:01] LABS: ABG OXYGEN SATURATION 87 % (94-100); ABG PCO2 58 MMHG (35-45); ABG PO2 58 MMHG (79-93); ABG TCO2 20.4 MMOL/L (21.0-31.0)
[2021-01-15 03:03] LABS: ALLENS TEST YES-POS; INSPIRED O2 80%; VENTILATOR YES
[2021-01-15 03:04] LABS: BASOPHILS # (AUTO) 0.1 10^3/uL (0.0-0.1); BASOPHILS % (AUTO) 1 % (0-10); EOSINOPHILS # (AUTO) 0.2 10^3/uL (0.0-0.3); EOSINOPHILS % (AUTO) 2 % (0-10); HEMATOCRIT 24 % (35-52); HEMOGLOBIN 7.6 g/dL (11.5-16.0); LYMPHOCYTES # (AUTO) 1.1 10^3/uL (1.0-4.0); LYMPHOCYTES % (AUTO) 9 % (12-44); MEAN CORPUSCULAR HEMOGLOBIN 30 pg (25-34); MEAN CORPUSCULAR HGB CONC 32 g/dL (32-36); MEAN CORPUSCULAR VOLUME 96 fL (80-99); MONOCYTES # (AUTO) 0.2 10^3/uL (0.0-1.0); MONOCYTES % (AUTO) 1 % (0-12); NEUTROPHILS # (AUTO) 10.3 10^3/uL (1.8-7.8); NEUTROPHILS % (AUTO) 81 % (42-75); PATIENT TEMP 37; PLATELET COUNT 183 10^3/uL (130-400); WHITE BLOOD COUNT 12.7 10^3/uL (4.3-11.0)
[2021-01-15 03:07] LABS: ABG PH 7.14 (7.37-7.43)
[2021-01-15 03:21] LABS: POTASSIUM 4.8 MMOL/L (3.6-5.0)
[2021-01-15 03:22] LABS: CALCIUM 7.7 MG/DL (8.5-10.1)
[2021-01-15 03:26] LABS: CREATININE SERUM 2.46 MG/DL (0.60-1.30); PHOSPHORUS 5.8 MG/DL (2.3-4.7)
[2021-01-15 03:28] LABS: MAGNESIUM 1.9 MG/DL (1.6-2.4)
[2021-01-15 03:37] LABS: ABG BASE EXCESS -9.7 MMOL/L (-2.5-2.5); ABG OXYGEN SATURATION 96 % (94-100); ABG PCO2 55 MMHG (35-45); ABG PO2 86 MMHG (79-93); ABG TCO2 19.8 MMOL/L (21.0-31.0)
[2021-01-15 03:38] LABS: ALLENS TEST YES-POS; INSPIRED O2 90%; PATIENT TEMP 36.4; VENTILATOR YES
[2021-01-15 03:40] LABS: ABG PH 7.13 (7.37-7.43)
[2021-01-15] MEDS: guaiFENesin SYRUP 100 MG/5 ML 10 ML (ROBITUSSIN SF) PO SCH ×4 (04:15→15:46)
[2021-01-15] MEDS: MAGNESIUM 1 GM/100 ML IVPB 100 ML IV SCH (04:59)
[2021-01-15] MEDS: POTASSIUM CL 10MEQ/50ML IVPB 50 ML IV SCH (04:59)
[2021-01-15] MEDS: KCL 20 MEQ TAB (K-DUR) PO SCH (04:59)
[2021-01-15] MEDS ORDERED: NOREPINEPHRINE 8 MG/250 ML 250 ML IV ONE (05:33)
[2021-01-15] MEDS: ALBUMIN 25% 25 GM/100 ML 100 ML IV SCH (05:38)
[2021-01-15] MEDS: LACTATED RINGERS 1,000 ML IV SCH (05:38)
[2021-01-15] MEDS: FUROSEMIDE INJECTION 120 MG in D5W 100 ML IVPB 100 ML IV SCH (05:57)
[2021-01-15 07:12] VITALS: BP 110/50
[2021-01-15] MEDS: PANTOPRAZOLE 40 MG (PROTONIX) VIAL IV SCH (08:03)
[2021-01-15] MEDS: LACRI-LUBE OPTHALMIC OINT 3.5 GM TUBE OU SCH ×2 (08:03→14:52)
[2021-01-15] MEDS: MICONAZOLE 2% POWDER (DESENEX AF) 90 GM TOP SCH (08:03)
--- NOTE | 2021-01-15 08:31 | Progress Note ---
Subjective Subjective Date Seen by Provider: Jan 15, 2021 Time Seen by Provider: 09:00 LOUIE IS A 70 Y/O FEMALE WHO IS A NEW PATIENT TO MY PRACTICE OF A FEW MONTHS AGO. SHE HAS HX OF CML, RENAL CARCINOMA STATUS POST NEPHRECTOMY PER STAFF REPORT, PT HAS NOT AWAKENED DESPITE A HOLIDAY OFF OF PARALYTICS, HAS BEEN OFF OF PROPOFOL DUE TO ELEVATED TRIGLYCERIDES Review of Systems ROS Unable to Obtain: INTUBATED, sedated General: Other (sedated) HEENT: No Head Aches, No Eye Pain, No Ear Pain, No Dysphasia, No Sinus Congestion, No Post Nasal Drip, No Sore Throat Pulmonary: Dyspnea, Cough Cardiovascular: No: Chest Pain, Palpitations, Orthopnea, Paroxysmal Noc. Dyspnea, Edema, Lt Headedness Gastrointestinal: No: Nausea, Vomiting, Abdominal Pain, Diarrhea, Constipation, Melena, Hematochezia Genitourinary: No Dysuria, No Frequency, No Incontinence, No Hematuria, No Retention Musculoskeletal: No: other, neck pain, shoulder pain, arm pain, back pain, hand pain, leg pain, foot pain Neurological: No: Weakness, Numbness, Incoordination, Change in speech, Confusion, Seizures, Other All Other Systems Reviewed All Other Systems Reviewed: Yes Objective Exam Vital Signs Vital Signs - First Documented 01/09/21 01/09/21 00:00 02:34 Temp 36.9 Pulse 71 Resp 30 B/P (MAP) 120/60 (80) Pulse Ox 95 O2 Delivery Mechanical Ventilator O2 Flow Rate 80.00 FiO2 80 Capillary Refill : Less Than 3 Seconds General Appearance: Other (sedated ON VENT) HEENT: Other (ET tube and OG tubes in place) Neck: Normal Inspection Respiratory: Crackles (BASES), Decreased Breath Sounds Cardiovascular: Regular Rate, Rhythm, Systolic Murmur Gastrointestinal: Normal Bowel Sounds, Non Tender, Soft Extremity: Non Tender, No Calf Tenderness, Pedal Edema (TRACE, AND EDEMA OF HANDS/ARMS) Neurologic/Psychiatric: Other (SEDATED ON VENT) Skin: Cool (ON FEET) Results Lab Laboratory Tests 01/14/21 11:23: Glucometer 89 01/14/21 18:10: Glucometer 88 01/14/21 22:35: Glucometer 82 01/15/21 02:52: White Blood Count 12.7H, Red Blood Count 2.51L, Hemoglobin 7.6L, Hematocrit 24L, Mean Corpuscular Volume 96, Mean Corpuscular Hemoglobin 30, Mean Corpuscular Hemoglobin Concent 32, Red Cell Distribution Width 17.5H, Platelet Count 183, Mean Platelet Volume 11.0, Immature Granulocyte % (Auto) 7, Neutrophils (%) (A uto) 81H, Lymphocytes (%) (Auto) 9L, Monocytes (%) (Auto) 1, Eosinophils (%) (Auto) 2, Basophils (%) (Auto) 1, Neutrophils # (Auto) 10.3H, Lymphocytes # (Auto) 1.1, Monocytes # (Auto) 0.2, Eosinophils # (Auto) 0.2, Basophils # (Auto) 0.1, Immature Granulocyte # (Auto) 0.8H, Blood Gas Puncture Site NA, Blood Gas Patient Temperature 37, Arterial Blood pH 7.14*L, Arterial Blood Partial Pressure CO2 58H, Arterial Blood Partial Pressure O2 58L, Arterial Blood HCO3 19L, Arterial Blood Total CO2 20.4L, Arterial Blood Oxygen Saturation 87L, Arterial Blood Base Excess -9.0L, Nathan Test YES-POS, Blood Gas Ventilator Setting YES, Blood Gas Inspired Oxygen 80%, Sodium Level 143, Potassium Level 4.8, Chloride Level 110H, Carbon Dioxide Level 18L, Anion Gap 15H, Blood Urea Nitrogen 73H, Creatinine 2.46H, Estimat Glomerular Filtration Rate 19, BUN/Creatinine Ratio 30, Glucose Level 124H, Calcium Level 7.7L, Phosphorus Level 5.8H, Magnesium Level 1.9 01/15/21 03:30: Blood Gas Puncture Site L RAD, Blood Gas Patient Temperature 36.4, Arterial Blood pH 7.13*L, Arterial Blood Partial Pressure CO2 55H, Arterial Blood Partial Pressure O2 86, Arterial Blood HCO3 18L, Arterial Blood Total CO2 19.8L, Arterial Blood Oxygen Saturation 96, Arterial Blood Base Excess -9.7L, Nathan Test YES-POS, Blood Gas Ventilator Setting YES, Blood Gas Inspired Oxygen 90% Microbiology 01/06/21 Blood Culture - Final, Complete No growth 01/03/21 Gram Stain - Final, Complete 01/03/21 Sputum Culture - Final, Complete Moraxella catarrhalis Usual upper respiratory viviana 12/29/20 Urine Culture - Final, Complete NO GROWTH Assessment/Plan Assessment/Plan Admission Dx ACUTE HYPOXIC RESPIRATORY FAILURE COVID 19 PULMONARY INFECTION HX OF RENAL CELL CARCINOMA WITH NEPHRECTOMY HYPONATREMIA ACUTE ON CHRONIC RENAL FAILURE (STAGE 4) CHRONIC MYELOGENOUS LEUKEMIA ACUTELY ELEVATED LIVER ENZYMES DUE TO SHOCK MORBID OBESITY Assessment and Plan SEE SUMMARY Problems: (1) Acute respiratory failure Qualifiers: Qualified Codes: J96.01 - Acute respiratory failure with hypoxia (2) Abnormal liver function (3) Acute kidney injury (4) Pneumonia due to COVID-19 virus (5) Hyponatremia Assessment & Plan: improved (6) CML (chronic myelocytic leukemia) (7) Renal cell carcinoma Admission Dx ACUTE HYPOXIC RESPIRATORY FAILURE COVID 19 PULMONARY INFECTION HX OF RENAL CELL CARCINOMA WITH NEPHRECTOMY HYPONATREMIA ACUTE ON CHRONIC RENAL FAILURE (STAGE 4) CHRONIC MYELOGENOUS LEUKEMIA ACUTELY ELEVATED LIVER ENZYMES DUE TO SHOCK MORBID OBESITY Clinical Quality Measures Admission Status Admission Dx ACUTE HYPOXIC RESPIRATORY FAILURE COVID 19 PULMONARY INFECTION HX OF RENAL CELL CARCINOMA WITH NEPHRECTOMY HYPONATREMIA ACUTE ON CHRONIC RENAL FAILURE (STAGE 4) CHRONIC MYELOGENOUS LEUKEMIA ACUTELY ELEVATED LIVER ENZYMES DUE TO SHOCK MORBID OBESITY SAMAN RAI MD Jan 15, 2021 08:31
[2021-01-15 09:44] VITALS: BP 100/58
--- NOTE | 2021-01-15 10:28 | Tele-ICU Progress Note ---
Subjective Date Seen by a Provider: Jan 15, 2021 Time Seen by a Provider: 10:27 Sepsis Event Evaluation Height, Weight, BMI Height: '" Weight: lbs. oz. kg; 41.18 BMI Method:Stated Exam Exam Patient acknowledged, consented, and participated in this virtual visit which was conducted using real time audio/video Vital Signs Date Time Temp Pulse Resp B/P (MAP) Pulse Ox O2 Delivery O2 Flow Rate FiO2 01/15/21 09:44 109 32 96 90 01/15/21 09:00 115 33 100/53 (69) 97 Mechanical Ventilator 100.00 01/15/21 08:00 116 29 103/51 (68) 98 Mechanical Ventilator 100.00 01/15/21 07:55 36.7 01/15/21 07:12 122 36 98 80 01/15/21 07:00 117 95/46 (62) 96 Mechanical Ventilator 100.00 01/15/21 07:00 119 01/15/21 06:00 128 40 99/55 (70) 95 Mechanical Ventilator 100.00 01/15/21 05:39 76/41 01/15/21 05:00 128 40 95/48 (64) 94 Mechanical Ventilator 100.00 01/15/21 04:55 36.4 01/15/21 04:53 129 41 92 Mechanical Ventilator 100.00 01/15/21 04:00 126 40 109/41 (63) 89 Mechanical Ventilator 90.00 01/15/21 03:48 Mechanical Ventilator 80 01/15/21 03:00 130 41 143/69 (93) 93 Mechanical Ventilator 90.00 01/15/21 02:00 122 36 149/70 (96) 95 Mechanical Ventilator 90.00 01/15/21 01:45 122 36 96 80 01/15/21 01:00 117 28 108/64 (79) 98 Mechanical Ventilator 90.00 01/15/21 01:00 117 01/15/21 00:00 116 35 114/58 (76) 97 Mechanical Ventilator 90.00 01/14/21 23:26 37.0 01/14/21 23:12 Mechanical Ventilator 90 01/14/21 23:00 121 27 126/62 (83) 95 Mechanical Ventilator 90.00 01/14/21 22:51 121 35 95 90 01/14/21 22:00 118 23 131/55 (80) 96 Mechanical Ventilator 90.00 01/14/21 21:00 117 36 135/58 (83) 94 Mechanical Ventilator 90.00 01/14/21 20:55 Mechanical Ventilator 90 01/14/21 20:08 36.4 01/14/21 20:00 115 24 146/68 (94) 93 Mechanical Ventilator 90.00 01/14/21 19:51 115 37 155/55 (88) 94 Mechanical Ventilator 90.00 01/14/21 19:00 113 17 166/69 (101) 94 Mechanical Ventilator 75.00 01/14/21 19:00 113 01/14/21 18:40 111 37 94 90 01/14/21 18:00 98 35 174/68 (103) 89 Mechanical Ventilator 75.00 01/14/21 17:00 85 25 161/69 (99) 94 Mechanical Ventilator 75.00 01/14/21 16:15 Mechanical Ventilator 75 01/14/21 16:12 36.4 01/14/21 16:00 71 31 125/68 (87) 92 Mechanical Ventilator 75.00 01/14/21 15:00 72 30 121/72 (88) 94 Mechanical Ventilator 75.00 01/14/21 14:33 95 32 94 80 01/14/21 14:00 72 25 128/63 (84) 98 Mechanical Ventilator 75.00 01/14/21 13:01 74 01/14/21 13:00 74 30 115/79 (91) 96 Mechanical Ventilator 80.00 01/14/21 12:11 Mechanical Ventilator 75 01/14/21 12:00 74 28 137/65 (89) 95 Mechanical Ventilator 80.00 01/14/21 11:46 79 33 127/59 01/14/21 11:34 36.4 01/14/21 11:00 79 33 127/59 (81) 95 Mechanical Ventilator 80.00 I & O 01/15/21 07:00 Intake Total 820 ml Output Total 2075 ml Balance -1255 ml Height & Weight Height: '" Weight: lbs. oz. kg; 41.18 BMI Method:Stated General Appearance: Other (sedated ON VENT) HEENT: Other (ET tube and OG tubes in place) Neck: Normal Inspection Respiratory: Crackles (BASES), Decreased Breath Sounds Cardiovascular: Regular Rate, Rhythm, Systolic Murmur Capillary Refill: Less Than 3 Seconds Gastrointestinal: normal bowel sounds, soft Extremity: Non Tender, No Calf Tenderness, Pedal Edema (TRACE, AND EDEMA OF HANDS/ARMS) Neurologic/Psychiatric: Other (SEDATED ON VENT) Skin: Cool (ON FEET) Results Lab Laboratory Tests 01/14/21 05:20 01/15/21 02:52 Assessment/Plan Assessment/Plan Discussed with RN Events overnight : proned til 4 am - dropped BP when turned supine Afebrile , I/O NEG 500 Drips: propofol 30 , versed 5 , precedex ,levo OFF, LR 50 As per RN exam : not sedated ., moves spontaneously RASS Consultants: Hospital course: 12/29- admitte dwith COVID PNA on remdesivir and decadraon, d dimer 3, on once a day Lovenox 12/31 vapotherm 40 lpm FiO2 100% - RR 20 - 40 12/31- intubated 01/01 - self-extubated , spont RR 36, BiPAP / FiO2 70% 01/02 - can not tolerate BIPAP , started precedex - > back to vapotherm 40 lpm FiO2 90% (01/03) Re-intubated 01/06 - 100% peep 14 , hypotensive - levo started , lasix gtt started 01/07 - stopped lasix with ? cr , peep 14 100% 01/08 70% peep 14 01/09 - off pressors , but ?fio2 to 80 , LOOSE STOOLS , OFF ABX 01/13 - back on pressors . 100% , worsenign GFR 01/14 - lasix gtt 01/15 - neg balance - but Cr worsening 2.2->2.6 , OFF SEDATION - NO RESPONSE - ECHO 12/31 - EF 70% , RVSP 45 mmHg A/P Acute resp failure , Covid PNA PC Vent 90% peep 14 rr 18 ( spon 24) 350 - PAP 37- ANTICIPATE MORE ACIDOSI WI TH DIURESIS - WILL INCREASE RR not PRONING - sedation propofol - TLG 230 on 01.06 , 296 on 01/07 - will try to wean off - versed gtt 01/06 OFF SEDATION - NO RESPONSE - placed back to versed with desaturaion ELZA - admit Cr 3, slow improving to 2 ( History of Renal Cell Carcinoma with Nephrectomy - gentle diuresis with lasix on 01/06 - no improvement in Fio2 -PATIENT IS VEREY EDEMATOUS , WILL ATTEMPT LASIX GTT AGAIN WITH ALBUMIN WITH HOPES TO IMPROVE FIO2 COVID PNA - remdesiivir - 12/30 - remdesivir off with ? Cr - decadron 6 iv -- OFF now - Heparin sQ - on hold for possible GIB 01/06 - is stable HB consider to resume Shock - OFF/ ON levo Pneumomediastinum 01/04 cxr - Sq emphesema same exam as per RN report . cxr 01/06 improved - will follow with cxr Leukocytosis - 12/29 - coag neg staph 07/13, urine MRSA swab neg , sputum 12/31 -, sputum 01/03 - moraxella - z max 01/03- 01/09 - OFF ABX NOW - follow - Hyponatremia - admitted 118 12/29 =>12/31 to 127 - 01/02 - normalized - cont to monitor Coffee grounds in NG 01/06 - TF on hold, on LIS x24 h - pink minmal secretions - 01/09 -STABLE NOW - PPI BID Transaminases -LFT's are elevated, need to be monitored-normalized - off remdesivir , probably due to COVID CML--treatment currently on hold PCP HAD A FAMILY MEETING TO DISCUSS GOALS OF CARE - DNR , CONSIDER TO CHANGE TO COMFORT MEASURES SOON IF NO IMPROVEMENT I AM AGREE WITH THIS PLAN , PROGNOSIS IS POOR Lines : R IJ 12/29 (Central Line Necessity Reviewed) Shaw: RN feels needed due to drop in SpO2 when gets out of bed OG: + Nutrition: TF on hold last 72h Analgesia: na Anxiety/ delirium na VTE Prophylaxis: hep 5K q8 - on hols 01/06 for possible GIB - TO RESUME 01/15 Stress Ulcer Prophylaxis: PPI BID Glycemic Control: + Plans in collaboration with bedside consultants and IM MDs. Discussed with RN to reach out if any questions or concerns A total of 28 minutes of critical care time was devoted to this patient today, required to treat and/or prevent further deterioration of critical care condition ( as above ) . ALENA CRAVEN MD Jan 15, 2021 10:28
[2021-01-15] MEDS ORDERED: ALBUMIN 25% 25 GM/100 ML 50 ML IV SCH (14:00)
[2021-01-15 15:48] VITALS: BP 148/66
[2021-01-15] MEDS ORDERED: PROMETHAZINE INJ 25 MG/ML (PHENERGAN) AMP IVP PRN (16:15)
[2021-01-15] MEDS ORDERED: RT-ALBUTEROL/IPRATROPIUM 3 ML (DUONEB) VIAL INH PRN (16:15)
[2021-01-15] MEDS ORDERED: ONDANSETRON 4 MG/2 ML (SDV) Z0FRAN IVP PRN (16:15)
[2021-01-15] MEDS ORDERED: ARTIFICAL TEARS 0.4 ML UNIT DOSE (REFRESH PLUS) OU PRN (16:15)
[2021-01-15] MEDS ORDERED: SALIVA STIMULANT MOUTH SPRAY (BIOTENE) 1.5 OZ MM PRN (16:15)
[2021-01-15] MEDS ORDERED: LORazepam INJ 2 MG/ML (ATIVAN) VIAL IVP PRN (16:15)
[2021-01-15] MEDS ORDERED: GLYCOPYRROLATE 0.2 MG/ML (ROBINUL) 2 ML VIAL IV PRN (16:15)
[2021-01-15] MEDS ORDERED: ACETAMINOPHEN 650 MG SUPP (TYLENOL) PR PRN (16:15)
[2021-01-15] MEDS ORDERED: BISACODYL 10 MG SUPP (DULCOLAX) PR PRN (16:15)
[2021-01-15] MEDS: morphine INJ 4 MG/ML 1 ML (VIAL/SYRINGE) IV PRN ×2 (16:34→17:17)
--- NOTE | 2021-01-15 18:52 | Discharge Summary ---
Discharge Summary Date of Admission Dec 29, 2020 at 11:31 Date of Discharge Admission Diagnosis Acute hypoxic respiratory failure due to COVID19 Comfort Measures/ End of Life Care: Pallative Care Advance Care discuss with: family member (s) (CHRISTINE LUCIO) Cardiopulmonary Arrest: Cardiorespiratory Arrest Discharge Diagnosis ACUTE HYPOXIC RESPIRATORY FAILURE DUE TO COVID 19 PULMONARY INFECTION WITH PNEUMONIA ACUTE HYPOXIC RESPIRATORY FAILURE HX OF RENAL CELL CARCINOMA WITH NEPHRECTOMY HYPONATREMIA ACUTE ON CHRONIC RENAL FAILURE (STAGE 4) CHRONIC MYELOGENOUS LEUKEMIA ACUTELY ELEVATED LIVER ENZYMES DUE TO SHOCK MORBID OBESITY (1) Acute respiratory failure Qualifiers: Qualified Codes: J96.01 - Acute respiratory failure with hypoxia (2) Abnormal liver function (3) Acute kidney injury (4) Pneumonia due to COVID-19 virus Status: Acute (5) Hyponatremia Assessment & Plan: improved (6) CML (chronic myelocytic leukemia) (7) Renal cell carcinoma SAMAN RAI MD Jan 15, 2021 18:52
== END 2021-01-15 17:12 | disposition expired | DRG 207 ==
LOC: EDUNIT# 08:22 → ER 08:23 → ICU 11:31
PROVIDERS: ADMIT Family Medicine; ATTEND Family Medicine
PROC: XW13325 Transfusion of Convalescent Plasma (Nonautologous) into Peripheral Vein, Percutaneous Approach, New Technology Group 5 (ICD-10-PCS; principal; 2020-12-29)
PROC: 02HV33Z Insertion of Infusion Device into Superior Vena Cava, Percutaneous Approach (ICD-10-PCS; 2020-12-29)
PROC: XW033E5 Introduction of Remdesivir Anti-infective into Peripheral Vein, Percutaneous Approach, New Technology Group 5 (ICD-10-PCS; 2020-12-30)
PROC: 5A09457 Assistance with Respiratory Ventilation, 24-96 Consecutive Hours, Continuous Positive Airway Pressure (ICD-10-PCS; 2021-01-06)
PROC: 0DH67UZ Insertion of Feeding Device into Stomach, Via Natural or Artificial Opening (ICD-10-PCS; 2021-01-06)
PROC: 5A1955Z Respiratory Ventilation, Greater than 96 Consecutive Hours (ICD-10-PCS; 2021-01-07)
PROC: 0BH17EZ Insertion of Endotracheal Airway into Trachea, Via Natural or Artificial Opening (ICD-10-PCS; 2021-01-07)
DX: U07.1 COVID-19 (principal); J12.82 Pneumonia due to coronavirus disease 2019; J96.01 Acute respiratory failure with hypoxia; E87.1 Hypo-osmolality and hyponatremia; N17.9 Acute kidney failure, unspecified; C92.10 Chronic myeloid leukemia, BCR/ABL-positive, not having achieved remission; Z68.41 Body mass index [BMI] 40.0-44.9, adult; N18.4 Chronic kidney disease, stage 4 (severe); E66.01 Morbid (severe) obesity due to excess calories; R57.8 Other shock; Z66 Do not resuscitate; Z51.5 Encounter for palliative care; D63.1 Anemia in chronic kidney disease; J98.2 Interstitial emphysema; B37.3 Candidiasis of vulva and vagina; Z85.528 Personal history of other malignant neoplasm of kidney; Z90.5 Acquired absence of kidney; Z88.0 Allergy status to penicillin; Z88.1 Allergy status to other antibiotic agents; Z86.73 Personal history of transient ischemic attack (TIA), and cerebral infarction without residual deficits; Z92.21 Personal history of antineoplastic chemotherapy
CPT/HCPCS: 36415; 36556; 36600; 51702; 71045; 80048; 80053; 81000; 82040; 82805; 82947; 83605; 83735; 83880; 84100; 84145; 84478; 85007; 85025; 85027; 85379; 85610; 85730; 86141; 86900; 86901; 87040; 87070; 87077; 87081; 87088; 87185; 87205; 87636; 93306; 93970; 94002; 94003; 94640; 94660; 94799; 96360